=== PATIENT | male | born 1960 | race Caucasian/White ===

== ENCOUNTER 2016-02-20 16:41 | Emergency (ER) | payer OTHER ==
[2016-02-20] MEDS ORDERED: Ketorolac INJ* 30 MG/ML 1 ML VIAL IV ONE (17:13)
[2016-02-20] MEDS ORDERED: NS 0.9% 1000 ML* 1,000 ML IV ONE (17:13)
[2016-02-20 17:51] LABS: Hematocrit 41 % (42-52); Hemoglobin 13.4 g/dl (14.0-18.0); Mean Corpuscular HGB Conc 33 g/dl (31-36); Mean Corpuscular Hemoglobin 34 pg (27-31); Mean Corpuscular Volume 104 fL (80-94); Mean Platelet Volume 9 um3 (7.4-10.4); Red Blood Count 3.94 10^6/ul (4.0-5.4); Red Cell Distribution Width 17 % (10.5-15); White Blood Count 10.5 10^3/ul (3.5-10.8)
[2016-02-20 18:01] LABS: Albumin 3.3 g/dL (3.2-5.2); Calcium 9.3 mg/dL (8.6-10.3); EGFR African American 26.8 (>60); EGFR Non-African American 20.9 (>60); Globulin 3.9 g/dL (2-4); Potassium 3.9 mmol/L (3.5-5.0); Total Bilirubin 0.9 mg/dL (0.2-1.0); Total Protein 7.2 g/dL (6.4-8.9)
[2016-02-20 18:04] LABS: Troponin I 0.01 ng/mL (<0.04)
[2016-02-20 18:14] LABS: C Reactive Protein 388.81 mg/L (< 5.00)
--- NOTE | 2016-02-20 18:26 | RAD ---
INDICATION: RIGHT knee and toes pain and swelling. Immobility due to long car trip one week ago. Post RIGHT pneumonectomy for lung carcinoma. COMPARISON: None. TECHNIQUE: Hopper scale, color Doppler, and spectral analysis of the deep veins of the RIGHT lower extremity. Vessel compression, phasicity, and augmentation assessed. REPORT: The RIGHT common femoral, great saphenous, profunda femoral, femoral, popliteal, peroneal, and posterior tibial veins are patent. 4.7 x 1.5 cm RIGHT popliteal cyst with reticulated low level internal echoes consistent with synovitis. Patency of the contralateral common femoral vein documented. IMPRESSION: No evidence for RIGHT lower extremity deep venous thrombosis.
--- NOTE | 2016-02-20 18:37 | RAD ---
Indication: RIGHT knee pain, swelling and limitation in flexion for about one week. Weakness. Comparison: None. Technique: AP, tunnel, crosstable lateral, sunrise views RIGHT knee. Report: Moderate suprapatellar joint effusion. Negative for fracture or malalignment. Mild osteophytosis. Mild medial joint space narrowing. Unremarkable soft tissue contours. IMPRESSION: Mild osteoarthritis most prominent at the medial joint compartment. Moderate suprapatellar joint effusion. Negative for fracture.
[2016-02-20] MEDS ORDERED: NS 0.9% 1000 ML* 2,000 ML IV ONE (19:12)
[2016-02-20] MEDS ORDERED: HYDROcodone/ACETAMIN 5-325 MG* 1 TAB PO ONE (22:05)
[2016-02-20 23:04] VITALS: BP 132/74
--- NOTE | 2016-02-20 23:36 | ED ---
Chris Oliveira Adam, scribed for Toribio Cerda MD on 02/20/16 at 1702 . Complex/Multi-Sys Presentation - HPI Summary HPI Summary: Pt is a 55 year old male presenting with pain in his right knee. The pain is aggravated by movement and weight-bearing. It set on 7 days ago when the pt was driving to [place] and it has grown more severe every day. He returned from [place] 3 days ago. He also c/o swelling in his right ankle/foot. PMHx includes lung CA, pneumonectomy, and kidney deficiency. - History Of Current Complaint Chief Complaint: EDWeakness Time Seen by Provider: 02/20/16 16:57 Hx Obtained From: Patient Onset/Duration: Gradual Onset, Lasting Days, Still Present Timing: Constant Severity Currently: Moderate Severity Initially: Mild Location: Pain At: - RLE Aggravating Factor(s): Movement, weight bearing Alleviating Factor(s): Nothing Associated Signs And Symptoms: Positive: Weakness, Edema - Allergies/Home Medications Allergies/Adverse Reactions: Allergies Allergy/AdvReac Type Severity Reaction Status Date / Time Penicillins Allergy Unknown Unknown Verified 07/01/12 13:08 Reaction Details PMH/Surg Hx/FS Hx/Imm Hx Endocrine/Hematology History: Denies: Hx Anticoagulant Therapy, Hx Diabetes, Hx Thyroid Disease Cardiovascular History: Reports: Hx Hypertension, Other Cardiovascular Problems/ Disorders - recent elevated bps Denies: Hx Pacemaker/ICD Respiratory History: Reports: Hx Lung Cancer, Other Respiratory Problems/ Disorders - s/p right pneumonectomy (Jan 2008) Denies: Hx Asthma, Hx Chronic Obstructive Pulmonary Disease (COPD) GI History: Reports: Hx Gastroesophageal Reflux Disease, Other GI Disorders - GERD History: Reports: Hx Acute Renal Failure - current elevated due to dehydration, Other Problems/Disorders - hx of renal issues s/p chemo tx Denies: Hx Renal Disease Musculoskeletal History: Denies: Hx Osteoporosis Sensory History: Reports: Hx Contacts or Glasses - reading Opthamlomology History: Reports: Hx Contacts or Glasses - reading Neurological History: Denies: Hx Dementia, Hx Seizures Psychiatric History: Reports: Hx Substance Abuse - ETOH - Cancer History Cancer Type, Location and Year: lung cancer 5 years ago Hx Chemotherapy: Yes - Surgical History Surgery Procedure, Year, and Place: LUNG SURGERY Hx Anesthesia Reactions: No Infectious Disease History: No Infectious Disease History: Denies: Hx Hepatitis, Hx Human Immunodeficiency Virus (HIV), Traveled Outside the [place] in Last 30 Days - Social History Occupation: Employed Full-time Lives: With Family - Female friend Alcohol Use: Weekly Alcohol Amount: 2/week ("occassionally binge") Hx Substance Use: No Substance Use Type: Reports: None Hx Tobacco Use: No Smoking Status (MU): Never Smoked Tobacco Review of Systems Constitutional: Negative Negative: Fever Positive: Arthralgia - Right knee, Myalgia - RLE, Edema - Ankles Positive: Weakness All Other Systems Reviewed And Are Negative: Yes Physical Exam Triage Information Reviewed: Yes Vital Signs On Initial Exam: Initial Vitals Temp Pulse Resp BP Pulse Ox 98.4 F 122 18 125/71 96 02/20/16 16:53 02/20/16 16:53 02/20/16 16:53 02/20/16 16:53 02/20/16 16:53 Vital Signs Reviewed: Yes Appearance: Positive: Well-Appearing, No Pain Distress Skin: Positive: Warm, Skin Color Reflects Adequate Perfusion, Dry Head/Face: Positive: Normal Head/Face Inspection Eyes: Positive: Normal ENT: Positive: Normal ENT inspection Neck: Positive: Supple, Nontender Respiratory/Lung Sounds: Positive: Clear to Auscultation, Breath Sounds Present Cardiovascular: Positive: RRR Abdomen Description: Positive: Nontender, Soft Bowel Sounds: Positive: Present Musculoskeletal: Positive: Other - Tenderness with ROM of right knee. Patella did not blot and is not warm to the touch. Slight ankle edema. Neurological: Positive: Normal Psychiatric: Positive: Normal, Affect/Mood Appropriate Diagnostics - Vital Signs Vital Signs Temp Pulse Resp BP Pulse Ox 02/20/16 16:53 98.4 F 122 18 125/71 96 - Laboratory Lab Results: Lab Results 02/20/16 02/20/16 02/20/16 Range/Units 17:31 17:31 17:31 WBC 10.5 (3.5-10.8) 10^3/ul RBC 3.94 L (4.0-5.4) 10^6/ul Hgb 13.4 L (14.0-18.0) g/dl Hct 41 L (42-52) % MCV 104 H (80-94) fL MCH 34 H (27-31) pg MCHC 33 (31-36) g/dl RDW 17 H (10.5-15) % Plt Count 337 (150-450) 10^3/ul MPV 9 (7.4-10.4) um3 Neut % (Auto) 80.5 (38-83) % Lymph % (Auto) 9.7 L (25-47) % [place] % (Auto) 8.9 (1-9) % Eos % (Auto) 0.2 (0-6) % Baso % (Auto) 0.7 (0-2) % Absolute Neuts (auto) 8.4 H (1.5-7.7) 10^3/ul Absolute Lymphs (auto) 1.0 (1.0-4.8) 10^3/ul Absolute Monos (auto) 0.9 H (0-0.8) 10^3/ul Absolute Eos (auto) 0 (0-0.6) 10^3/ul Absolute Basos (auto) 0.1 (0-0.2) 10^3/ul Absolute Nucleated RBC 0 10^3/ul Nucleated RBC % 0 INR (Anticoag Therapy) 0.98 (0.89-1.11) Sodium 128 L (133-145) mmol/L Potassium 3.9 (3.5-5.0) mmol/L Chloride 93 L (101-111) mmol/L Carbon Dioxide 22 (22-32) mmol/L Anion Gap 13 H (2-11) mmol/L BUN 62 H (6-24) mg/dL Creatinine 3.10 H (0.67-1.17) mg/dL Est GFR ( Amer) 26.8 (>60) Est GFR (Non-Af Amer) 20.9 (>60) BUN/Creatinine Ratio 20.0 (8-20) Glucose 103 H (70-100) mg/dL Lactic Acid (0.5-2.0) mmol/L Calcium 9.3 (8.6-10.3) mg/dL Total Bilirubin 0.90 (0.2-1.0) mg/dL AST 42 H (13-39) U/L ALT 31 (7-52) U/L Alkaline Phosphatase 130 H (34-104) U/L Troponin I 0.01 (<0.04) ng/mL C-Reactive Protein 388.81 H (< 5.00) mg/L Total Protein 7.2 (6.4-8.9) g/dL Albumin 3.3 (3.2-5.2) g/dL Globulin 3.9 (2-4) g/dL Albumin/Globulin Ratio 0.8 L (1-3) 02/20/16 Range/Units 17:31 WBC (3.5-10.8) 10^3/ul RBC (4.0-5.4) 10^6/ul Hgb (14.0-18.0) g/dl Hct (42-52) % MCV (80-94) fL MCH (27-31) pg MCHC (31-36) g/dl RDW (10.5-15) % Plt Count (150-450) 10^3/ul MPV (7.4-10.4) um3 Neut % (Auto) (38-83) % Lymph % (Auto) (25-47) % [place] % (Auto) (1-9) % Eos % (Auto) (0-6) % Baso % (Auto) (0-2) % Absolute Neuts (auto) (1.5-7.7) 10^3/ul Absolute Lymphs (auto) (1.0-4.8) 10^3/ul Absolute Monos (auto) (0-0.8) 10^3/ul Absolute Eos (auto) (0-0.6) 10^3/ul Absolute Basos (auto) (0-0.2) 10^3/ul Absolute Nucleated RBC 10^3/ul Nucleated RBC % INR (Anticoag Therapy) (0.89-1.11) Sodium (133-145) mmol/L Potassium (3.5-5.0) mmol/L Chloride (101-111) mmol/L Carbon Dioxide (22-32) mmol/L Anion Gap (2-11) mmol/L BUN (6-24) mg/dL Creatinine (0.67-1.17) mg/dL Est GFR ( Amer) (>60) Est GFR (Non-Af Amer) (>60) BUN/Creatinine Ratio (8-20) Glucose (70-100) mg/dL Lactic Acid 1.5 (0.5-2.0) mmol/L Calcium (8.6-10.3) mg/dL Total Bilirubin (0.2-1.0) mg/dL AST (13-39) U/L ALT (7-52) U/L Alkaline Phosphatase (34-104) U/L Troponin I (<0.04) ng/mL C-Reactive Protein (< 5.00) mg/L Total Protein (6.4-8.9) g/dL Albumin (3.2-5.2) g/dL Globulin (2-4) g/dL Albumin/Globulin Ratio (1-3) Result Diagrams: 02/20/16 17:31 02/20/16 17:31 Lab Statement: Any lab studies that have been ordered have been reviewed, and results considered in the medical decision making process. - Radiology Right Knee Radiology Interpretation Completed By: Radiologist - IMPRESSION: Mild osteoarthritis most prominent at the medial joint compartment. Moderate suprapatellar joint effusion. Negative for fracture. - EKG 16:58 Cardiac Rate: Tachycardia - 116 BPM EKG Rhythm: Sinus Tachycardia EKG Interpretation: Nonspecific changes - Additional Comments Diagnostic Additional Comments: Troponin I - 0.01 Venous Doppler Study - IMPRESSION: No evidence for RIGHT lower extremity deep venous thrombosis. Complex Multi-Symp Course/Dx Course Of Treatment: There is no evidence for an intraarticular problem. His knee has been hurting more and more since he drove an 8 hour trip. I will treat him conservatively with immobilization and anti-inflammatories - Diagnoses Provider Diagnoses: Knee inflammation Discharge - Discharge Plan Condition: Stable Disposition: HOME Prescriptions: HYDROcodone/ACETAMIN 5-325 MG* [[place] 5-325 TAB*] 1 tab PO Q6H PRN #20 tab MDD 4 PRN Reason: Pain Patient Education Materials: Knee Pain (ED) Referrals: Harinder Duncan MD [Primary Care Provider] - Additional Instructions: Follow up with Dr. Duncan. The documentation as recorded by the Chris chahal Adam accurately reflects the service I personally performed and the decisions made by me, Toribio Cerda MD.
== END 2016-02-20 23:03 | disposition home or self-care (01) ==
LOC: ED 16:41
DX: M13.161 Monoarthritis, not elsewhere classified, right knee (principal); M25.561 Pain in right knee; R53.1 Weakness
CPT/HCPCS: 36415; 80053; 83605; 84484; 85025; 85610; 86140; 93005; 96361; 96374; 99282; J1885

== ENCOUNTER 2016-10-19 12:36 | Inpatient (IN) | payer OTHER ==
[2016-10-19 13:48] LABS: Hematocrit 42 % (42-52); Hemoglobin 14.1 g/dl (14.0-18.0); Mean Corpuscular HGB Conc 34 g/dl (31-36); Mean Corpuscular Hemoglobin 34 pg (27-31); Mean Corpuscular Volume 102 fL (80-94); Mean Platelet Volume 7 um3 (7.4-10.4); Red Blood Count 4.14 10^6/ul (4.0-5.4); Red Cell Distribution Width 20 % (10.5-15); White Blood Count 9.6 10^3/ul (3.5-10.8)
[2016-10-19] MEDS ORDERED: NS 0.9% 1000 ML* 1,000 ML IV ONE ×3 (13:48→17:51)
[2016-10-19 14:12] LABS: Albumin 4.1 g/dL (3.2-5.2); BUN/Creatinine Ratio 20.4 (8-20); C Reactive Protein 8.81 mg/L (< 5.00); Calcium 9.3 mg/dL (8.6-10.3); EGFR African American 63.5 (>60); EGFR Non-African American 49.4 (>60); Globulin 3.2 g/dL (2-4); Potassium 4.3 mmol/L (3.5-5.0); Total Bilirubin 1.1 mg/dL (0.2-1.0); Total Protein 7.3 g/dL (6.4-8.9)
[2016-10-19 14:24] LABS: Urine Bacteria Absent (Absent); Urine Bilirubin Negative (Negative); Urine Glucose Negative (Negative); Urine Nitrite Negative (Negative)
[2016-10-19] MEDS ORDERED: Iodixanol* (CONTRAST) 320 MG/ML 100 ML SDV IV ONE (15:21)
--- NOTE | 2016-10-19 15:35 | RAD ---
HISTORY: Right upper quadrant pain and vomiting COMPARISONS: None TECHNIQUE: Multiple transverse and longitudinal ultrasound images were obtained of the right upper quadrant of the abdomen using grayscale and color Doppler imaging. FINDINGS: The study is limited by patient bowel gas. LIVER: The liver is diffusely echogenic and coarse in echotexture, with decreased acoustic transmission. The liver is otherwise normal in shape, size, and contour. There is normal hepatopedal flow of the portal vein on Doppler imaging. BILIARY TREE: There is no intrahepatic or extrahepatic biliary dilatation. The common duct measures 0.4 cm. GALLBLADDER: The gallbladder is distended. An echogenic shadowing gallstone is noted.. There is no gallbladder wall thickening, pericholecystic fluid, or sonographic Thomas sign. PANCREAS: The pancreas is obscured by overlying bowel gas. RIGHT KIDNEY: Renal cysts are noted measuring up to 1.6 cm. 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 There is no hydronephrosis or nephrolithiasis. The right kidney measures 10.9 x 4.3 x 4.1 cm. AORTA AND IVC: The origin of the aorta is limited due to bowel gas. IVC is unremarkable. FLUID: There are no pleural effusions. There is no free fluid within the hepatorenal recess. OTHER FINDINGS: None. IMPRESSION: 1. FATTY LIVER. 2. CHOLELITHIASIS. 3. DUPLICATED RIGHT RENAL COLLECTING SYSTEM.
--- NOTE | 2016-10-19 16:26 | RAD ---
Indication: Vomiting and constipation, evaluate for small bowel obstruction CT of the abdomen and pelvis was performed without IV contrast administration. Oral contrast was administered. Coronal and sagittal reconstructed images were obtained. No prior studies are available for comparison. The patient is status post right pneumonectomy with mediastinal shift of the mediastinal structures to the right. Left lung field appears hyperinflated. No nodules or pleural fluid is identified. Liver is normal in size. It is diffusely decreased in density consistent with hepatic steatosis. The gallbladder demonstrates calcified gallstone in the dependent portion with no evidence of pericholecystic fluid. Common duct is not dilated. The pancreas demonstrates no mass or pancreatic duct dilatation. The spleen is normal in size. No adrenal lesions are noted. The kidneys demonstrate no hydronephrosis. The retroperitoneal lymphadenopathy is noted. The stomach is moderately distended. There is circumferential wall thickening at the antrum of the stomach. A mass in the antrum of the stomach is not excluded. Correlation with EGD is suggested. The small bowel demonstrates no abnormal dilatation. The colon is filled with stool. Patient status post appendectomy. Aorta and inferior vena cava are unremarkable. The bony structures demonstrate mild degenerative disc disease at multiple lumbar levels without sclerotic or lytic lesions. IMPRESSION: STATUS POST RIGHT PNEUMONECTOMY. HEPATIC STEATOSIS. THERE IS A CIRCUMFERENTIAL WALL THICKENING OF THE GASTRIC ANTRUM. A PARTIAL GASTRIC OUTLET OBSTRUCTION CANNOT BE EXCLUDED. THIS MAY BE DUE TO NEOPLASTIC OR INFLAMMATORY PROCESS. CORRELATION WITH DIRECT VISUALIZATION MAY BE HELPFUL. CHOLELITHIASIS WITHOUT BILIARY DUCTAL DILATATION.
[2016-10-19 17:03] LABS: Venous Bicarbonate HCO3 21.9 mmol/L (24-28)
[2016-10-19] MEDS ORDERED: Ondansetron INJ* 2 MG/ML VIAL IV PRN (17:41)
[2016-10-19] MEDS ORDERED: Enoxaparin(*) 40 MG/0.4 ML SYR SUBCUT SCH (18:00)
[2016-10-19] MEDS ORDERED: Senna TAB PO PRN (18:43)
[2016-10-19] MEDS ORDERED: Docusate CAP* 100 MG PO PRN (18:43)
--- NOTE | 2016-10-19 19:00 | HP ---
H&P (Free Text) History and Physical: Reason for consultation: Coffee-ground emesis HPI: 55 year old male with history of previous pneumonectomy presents to ED with persistent nausea and now coffee-ground emesis. Patient explains that over the past 4-5 days he has been significantly constipated. States he has had nausea and persisten emesis that initially was with food and then progressed to bile and dark material. Denies melena or hematochezia. States he has been constipated which is new as he typically has loose stools. Admits to recent alcohol intake and binge drinking. No fevers or chills. Denies any abdominal distension. He came to ER with persistent symptoms and underwent a CT that showed possible gastric antral thickening with associated possible small bowel obstruction. He also underwent a U/S of RUQ that showed cholelithiasis but no clear evidence of cholecystitis. GI consulted for evaluation. Patient reports having similar symptoms in the past where he underwent an EGD by Dr. Morrow and was told he had reflux. He has a family history of colorectal cancer and had last colonoscopy [facility] 3-4 years ago without polyps. ROS: 10 point review of systems performed is negative unless specified in HPI. Past Medical and Surgical history Hypertension Alcoholism Lung Cancer s/p Pneumonectomy in 2007 Active Medications Generic Name Dose Route Start Last Admin Trade Name Freq PRN Reason Stop Dose Admin Acetaminophen 650 mg 10/19/16 17:41 Tylenol Tab* PO Q6H PRN PAIN Docusate Sodium 200 mg 10/19/16 18:43 Colace Cap* PO DAILY PRN CONSTIPATION Sodium Chloride 1,000 mls @ 175 mls/hr 10/19/16 17:45 Ns 0.9% 1000 Ml* IV PER RATE SHABANA Pantoprazole Sodium 80 mg/ 250 mls @ 25 mls/hr 10/19/16 18:30 Sodium Chloride IVPB Q10H SHABANA Ondansetron HCl 4 mg 10/19/16 17:41 Zofran Inj* IV Q4H PRN NAUSEA Senna 1 tab 10/19/16 18:43 Senokot Tab* PO DAILY PRN CONSTIPATION Temp Pulse Resp BP Pulse Ox 97.9 F 129 18 161/104 97 10/19/16 12:52 10/19/16 17:00 10/19/16 17:34 10/19/16 17:34 10/19/16 17:00 GEN: Appears well in no acute distress, talkative HEENT: anicteric sclera, dry mucous membranes CHEST: Clear to auscultation bilaterally CV: tachycardic s1 s2 no rubs or gallops ABD: soft, mild tenderness in right upper quadrant, hypoactive bowel sounds, + hepatomegaly MSK: nontender SKIN: no jaundice or rashes NEURO: alert and oriented x3 Labs: Laboratory Last Values WBC 9.6 10^3/ul (3.5-10.8) 10/19/16 13:35 RBC 4.14 10^6/ul (4.0-5.4) 10/19/16 13:35 Hgb 14.1 g/dl (14.0-18.0) 10/19/16 13:35 Hct 42 % (42-52) 10/19/16 13:35 MCV 102 fL (80-94) H 10/19/16 13:35 MCH 34 pg (27-31) H 10/19/16 13:35 MCHC 34 g/dl (31-36) 10/19/16 13:35 RDW 20 % (10.5-15) H 10/19/16 13:35 Plt Count 279 10^3/ul (150-450) 10/19/16 13:35 MPV 7 um3 (7.4-10.4) L 10/19/16 13:35 Neut % (Auto) 79.3 % (38-83) 10/19/16 13:35 Lymph % (Auto) 14.7 % (25-47) L 10/19/16 13:35 [place] % (Auto) 4.7 % (1-9) 10/19/16 13:35 Eos % (Auto) 0.2 % (0-6) 10/19/16 13:35 Baso % (Auto) 1.1 % (0-2) 10/19/16 13:35 Absolute Neuts (auto) 7.6 10^3/ul (1.5-7.7) 10/19/16 13:35 Absolute Lymphs (auto) 1.4 10^3/ul (1.0-4.8) 10/19/16 13:35 Absolute Monos (auto) 0.5 10^3/ul (0-0.8) 10/19/16 13:35 Absolute Eos (auto) 0 10^3/ul (0-0.6) 10/19/16 13:35 Absolute Basos (auto) 0.1 10^3/ul (0-0.2) 10/19/16 13:35 Absolute Nucleated RBC 0.02 10^3/ul 10/19/16 13:35 Nucleated RBC % 0.2 10/19/16 13:35 VBG pH 7.40 (7.33-7.43) 10/19/16 16:56 VBG pCO2 35 mmHg (41-51) L 10/19/16 16:56 VBG pO2 30 mmHg (35-45) L 10/19/16 16:56 VBG HCO3 21.9 mmol/L (24-28) L 10/19/16 16:56 VBG O2 Saturation 60.9 % (70-80) L 10/19/16 16:56 VBG Base Excess -2.5 (0-4) L 10/19/16 16:56 Sodium 136 mmol/L (133-145) 10/19/16 13:35 Potassium 4.3 mmol/L (3.5-5.0) 10/19/16 13:35 Chloride 95 mmol/L (101-111) L 10/19/16 13:35 Carbon Dioxide 22 mmol/L (22-32) 10/19/16 13:35 Anion Gap 19 mmol/L (2-11) H 10/19/16 13:35 BUN 30 mg/dL (6-24) H 10/19/16 13:35 Creatinine 1.47 mg/dL (0.67-1.17) H 10/19/16 13:35 Est GFR ( Amer) 63.5 (>60) 10/19/16 13:35 Est GFR (Non-Af Amer) 49.4 (>60) 10/19/16 13:35 BUN/Creatinine Ratio 20.4 (8-20) H 10/19/16 13:35 Glucose 84 mg/dL (70-100) 10/19/16 13:35 Lactic Acid 4.4 mmol/L (0.5-2.0) H* 10/19/16 13:35 Calcium 9.3 mg/dL (8.6-10.3) 10/19/16 13:35 Total Bilirubin 1.10 mg/dL (0.2-1.0) H 10/19/16 13:35 AST 36 U/L (13-39) 10/19/16 13:35 ALT 21 U/L (7-52) 10/19/16 13:35 Alkaline Phosphatase 85 U/L (34-104) 10/19/16 13:35 C-Reactive Protein 8.81 mg/L (< 5.00) H 10/19/16 13:35 Total Protein 7.3 g/dL (6.4-8.9) 10/19/16 13:35 Albumin 4.1 g/dL (3.2-5.2) 10/19/16 13:35 Globulin 3.2 g/dL (2-4) 10/19/16 13:35 Albumin/Globulin Ratio 1.3 (1-3) 10/19/16 13:35 Lipase 77 U/L (11.0-82.0) 10/19/16 13:35 Urine Color Jessica 10/19/16 13:59 Urine Appearance Cloudy 10/19/16 13:59 Urine pH 5.0 (5-9) 10/19/16 13:59 Ur Specific [place] 1.027 (1.010-1.030) 10/19/16 13:59 Urine Protein 3+(>=500 mg/dl) (Negative) H 10/19/16 13:59 Urine Ketones 2+ (Negative) H 10/19/16 13:59 Urine Blood 1+ (Negative) H 10/19/16 13:59 Urine Nitrate Negative (Negative) 10/19/16 13:59 Urine Bilirubin Negative (Negative) 10/19/16 13:59 Urine Urobilinogen Negative (Negative) 10/19/16 13:59 Ur Leukocyte Esterase Trace (Negative) H 10/19/16 13:59 Urine WBC (Auto) Trace(0-5/hpf) (Absent) 10/19/16 13:59 Urine RBC (Auto) 2+(6-10/hpf) (Absent) H 10/19/16 13:59 Ur Squamous Epith Cells Present (Absent) H 10/19/16 13:59 Urine Bacteria Absent (Absent) 10/19/16 13:59 Hyaline Casts Present (Absent) H 10/19/16 13:59 Urine Glucose Negative (Negative) 10/19/16 13:59 Serum Alcohol 127 mg/dL (<10) H 10/19/16 13:35 Blood Type A Positive 10/19/16 13:35 Antibody Screen Negative 10/19/16 13:35 Radiology: CT abd/pelvis; independently reviewed and noted to have possible small bowel obstruction unable to see a clear mass per my read. Impression: 55 year old male with above comorbidities admitted with abdominal pain, nausea, and coffee-ground emesis. CT imaging suggests possible partial small bowel obstruction and labs with alcoholic ketoacidosis. 1. Coffee-ground Emesis: Reported dark emesis but unclear if patient has overt GI bleeding at this time. Nonetheless, given his alcohol intake and history of GERD and abnormal CT, EGD is indicated. For now, would recommend acid suppression with IV ppi BID and clears till midnight. Continue antiemetics overnight. Keep NPO p MN for EGD tomorrow am. Please maintain 2 large bore IVs. Check H/H q12 for now. Send PT/INR in am if not already sent. 2. CT showing gastric thickening: Possible patient could have alcohol induced gastritis vs other etiology. As above, EGD is indicated to evaluate CT findings. 3. Possble partial small bowel obstruction: Clinically, he does not appear to have evidence of a partial small bowel obstruction at this time. Consider follow up abdominal film if EGD is non-diagnostic. 4. Hepatic Steatosis on CT: Likely secondary to alcohol discussed alcohol abstinence.
[2016-10-19] MEDS: Pantoprazole IV* 80 MG in NS 0.9% 250 ML* 250 ML IVPB SCH (20:44)
[2016-10-19] MEDS: LORazepam TAB(*) 1 MG PO SCH ×2 (20:46→22:30)
[2016-10-19] MEDS ORDERED: LORazepam INJ* 2 MG/ML 1 ML VIAL IV PUSH SCH (21:00)
[2016-10-19] MEDS: NS 0.9% 1000 ML* 1,000 ML IV SCH (22:32)
[2016-10-19 23:30] LABS: Hematocrit 36 % (42-52); Hemoglobin 11.8 g/dl (14.0-18.0)
--- NOTE | 2016-10-20 01:35 | HP ---
HISTORY AND PHYSICAL: ADDENDUM: The case was reviewed and discussed with MONI Guerra. Mr. Rojas is a 55-year-old male with a past medical history of hypertension, alcoholism, pancreatitis, CKD stage 3, GERD, lung CA, status post right pneumonectomy who presents to the hospital with complaints of nausea and recurrent vomiting. He reports up to 10 episodes of vomiting a day and very poor oral intake, but he continues to drink 7 shots of vodka a day. His workup in the emergency room was reviewed. I believe his hemoglobin is 14 due to hemoconcentration considering his recurrent vomiting. Clinically, he appears to be dehydrated and he also has lactic acid elevation with an anion gap of 19. Alcohol level was 127. His CT showed findings suggestive of gastric outlet obstruction. I believe the patient may have an upper GI bleed that could be secondary to peptic ulcer disease causing his gastric outlet obstruction and recurrent vomiting. Key-Phelps tear is on the differential. He will be admitted. We are going to give him IV hydration, Protonix drip and symptomatic treatment. We are going to monitor his H and H and lactic acid. With his history of alcohol abuse, he will also be started on a WAM protocol and he will be monitored closely. I am in agreement with his management. [id number]/[facility] #: [id number] [facility]ERSheron
--- NOTE | 2016-10-20 02:34 | HP ---
AMENDED REPORT NOW INCLUDES COSIGNER DESIGNATION AND [id number] DATE OF ADMISSION ATTENDING ADDENDUM NOW INCLUDED ON THIS REPORT ESIGNED BEFORE ADJUSTMENTS CC: Dr. Harinder Duncan * HISTORY AND PHYSICAL: DATE OF ADMISSION: 10/19/16 PRIMARY CARE PHYSICIAN: Dr. Harinder Duncan MY ATTENDING WHILE IN THE HOSPITAL: Dr. Dex Santana * (DICTATED BY MONI PARK) CHIEF COMPLAINT: Throwing up brown emesis for several days. HISTORY OF PRESENT ILLNESS: Mr. Rojas is a 55-year-old male with a past medical history significant for hypertension; stage 3 chronic kidney disease; lung cancer, with pneumonectomy and alcohol abuse, who presents with 3 days of vomiting 10 times a day, sometimes with brown emesis that he describes as stringy and tobacco like. The patient denies any logan blood in his vomit. The patient has also been constipated for 5 days and today manually disimpacted himself and had some bright red blood per rectum. The patient states that he usually has rather loose stools, sometimes they are black and tarry. The patient denies any abdominal pain, but states that he is uncomfortable in his abdomen because of nausea. The patient was here in 2016 with similar episode of vomiting with brown emesis and states this is similar. The patient denies history of peptic ulcer disease, foreign travel, exposure to close contacts with known H. pylori, hepatitis, cirrhosis, or colon cancer. The patient's most recent colonoscopy was in 2014 showing several polyps. The patient states he had an endoscopy, but there is no record of it in the system. The patient drinks 6 to 7 shots of vodka a day and has been doing so intermittently throughout his life. The patient states he did not drink anything for a month before a week ago and he has been having about 6 to 7 shots since and that is his pattern. The patient denies ever having physically withdrawn from alcohol before. The patient denies any recent illnesses. The patient states he has not had anything to drink for several days due to nausea. PAST MEDICAL HISTORY: Lung cancer; hypertension; chronic kidney disease, stage 3, from chemotherapy; alcohol abuse; GERD. PAST SURGICAL HISTORY: Right pneumonectomy, appendectomy, tonsillectomy. MEDICATIONS: The patient discontinued all his medications over a week ago. His former medications included: 1. Omeprazole. 2. Lisinopril. ALLERGIES: PENICILLIN. FAMILY HISTORY: The patient's father had coronary artery disease. The patient' s mother had diabetes mellitus. The patient's grandfather has diabetes mellitus. The patient's sister has breast cancer. The patient's mother had head and neck cancer and the patient's father had colon cancer. SOCIAL HISTORY: The patient states that he quit smoking tobacco 10 years ago after his diagnosis of lung cancer, after [id number] history of smoking. The patient's alcohol abuse is described in the HPI. The patient used to work as musician and nocturnist, but is now retired. The patient is never , does not have any kids. REVIEW OF SYSTEMS: The patient denies fevers, chills, chest pain, edema, cough , shortness of breath, hematuria, dysuria. The patient states his urine has gotten darker over the past week. The patient states he had significant peripheral neuropathy from chemotherapy after he had lung cancer. The patient denies any weakness. The patient denies any change in vision. The patient denies any difficulty swallowing. The patient denies any new rashes or altered mental status. PHYSICAL EXAMINATION GENERAL: The patient is a 55-year-old male, who appears his stated age and is sitting comfortably on the exam table. VITAL SIGNS: Blood pressure is 137/105, heart rate 122, temperature 97.9, respiratory rate 15, oxygen saturation 98% on room air. HEENT: Head: Normocephalic and atraumatic. Conjunctivae anicteric. Pupils are equal, round, and reactive to light. Pharynx is nonerythematous, no erosions, mucosa dry and pale. NECK: Supple, no lymphadenopathy. RESPIRATORY: The patient has no adventitious breath sounds on the left side. The right side is lacking breath sounds entirely except for slight bronchial breath sounds around the middle lobe. CARDIAC: Tachycardic, no clicks, murmurs, gallops, or rubs. Pulses 2+ in the radial, dorsalis pedis, and posterior tibial pulses bilaterally. No edema. ABDOMEN: Soft, nontender, nondistended. Bowel sounds are hyperactive in all 4 quadrants. No abdominal bruits auscultated. No hepatosplenomegaly. Rectal exam revealed no stool in the rectal vault. No hemorrhoids, fissures, normal sphincter tone, and there were specks of blood on the examiner's glove, but not enough for a stool occult blood sample. : No suprapubic tenderness. No CVA tenderness. NEURO: Cranial nerves II through XII are intact. Alert and oriented x3. SKIN: [place], warm, intact. DIAGNOSTIC STUDIES/LAB DATA: White blood cell count 9.6, hemoglobin 14.1, hematocrit 42, MCV 102, MCH 34, RDW 20, platelets 279. Sodium 136, potassium 4.3, chloride 95, carbon dioxide 22, anion gap 19, BUN 30, creatinine 1.47, glucose 84, lactic acid 4.4. Bilirubin 1.1. CRP 8.81. AST 36, ALT 21. Urine : Color alfredo, appearance cloudy, 3+ protein, 2+ ketones, 1+ blood, trace leukocyte esterase, 2+ red blood cells, epithelial cells present, hyaline casts present, no bacteria, serum alcohol 127. Venous blood gas pH 7.4, venous blood gas PCO2 , venous blood gas O2 30, venous blood gas HCO3 21.9, venous O2 saturation 60.9, venous blood gas base excess negative 2.5. The patient's CT of the abdomen and pelvis shows pneumonectomy, hepatic steatosis, and a circumferential wall thickening epigastric antrum, partial gastric outlet obstruction cannot be excluded, this may be due to neoplastic or inflammatory process, correlation with direct visualization may be helpful and cholelithiasis without biliary duct dilatation. The patient also had ultrasound of right upper quadrant showing fatty liver, cholelithiasis, and a duplicated right renal collecting system. ASSESSMENT AND PLAN: Impression: The patient is a 55-year-old male with past medical history significant for lung cancer, with pneumonectomy; hypertension; chronic kidney disease; ongoing alcohol abuse, who presents with findings consistent with an upper gastrointestinal bleed and will be admitted to telemetry for observation and supportive care. 1. Gastric upper gastrointestinal bleed. The patient's description of emesis is consistent with coffee-ground appearance, indicating partially digested gastric blood. The patient has a past medical history significant for this and recent discontinuing his PPI and continued alcohol abuse are both predisposing factors for gastrointestinal bleed. We will admit to telemetry, start on a Protonix drip, give fluids for blood pressure support, though he is currently normotensive and consult GI for possible endoscopy. I will repeat H and H q.8 hours and we will repeat lactic acid at 2200 tonight. We will order stool occult blood for the patient's next bowel movement. 2. Chronic kidney disease, stage 3. We will repeat BMP in the morning, BUN and creatinine ratio greater than 20 indicating possible dehydration, fluids will help with this. 3. Alcohol abuse. We will place on the [facility] protocol and reassess if the patient begins to show signs of physical withdrawal. 4. Hypertension. The patient recently discontinued his own lisinopril. The patient is currently normotensive in the hospital. We will reinitiate antihypertensive therapy if indicated. 5. Gastroesophageal reflux disease. The patient is on a Protonix drip. 6. FEN. The patient is NPO pending GI consult. The patient has fluids going, normal saline at 175 mL an hour. 7. Code status. The patient would like to be a full code. The patient's surrogate decision maker is Karime Zandrakelly, his whale trainer. 8. DVT prophylaxis. The patient will have SCDs on while in bed and will be encouraged to ambulate if able. No pharmacologic prophylaxis given at this time due to possible gastrointestinal bleed. The patient is admitted to telemetry. 9. Disposition: The patient is admitted to telemetry. TIME SPENT: Approximately an hour spent on this admission, half of which was spent on [id number] contact with the patient obtaining history and physical. This case has been discussed with my attending provider, Dr. Dex Santana, and she is in agreement with this plan. MONI PARK ADDENDUM: The case was reviewed and discussed with MONI Park. Mr. Rojas is a 55-year-old male with a past medical history of hypertension, alcoholism, pancreatitis, CKD stage 3, GERD, lung CA, status post right pneumonectomy who presents to the hospital with complaints of nausea and recurrent vomiting. He reports up to 10 episodes of vomiting a day and very poor oral intake, but he continues to drink 7 shots of vodka a day. His workup in the emergency room was reviewed. I believe his hemoglobin is 14 due to hemoconcentration considering his recurrent vomiting. Clinically, he appears to be dehydrated and he also has lactic acid elevation with an anion gap of 19. Alcohol level was 127. His CT showed findings suggestive of gastric outlet obstruction. I believe the patient may have an upper GI bleed that could be secondary to peptic ulcer disease causing his gastric outlet obstruction and recurrent vomiting. Key-Phelps tear is on the differential. He will be admitted. We are going to give him IV hydration, Protonix drip and symptomatic treatment. We are going to monitor his H and H and lactic acid. With his history of alcohol abuse, he will also be started on a WAM protocol and he will be monitored closely. I am in agreement with his management. DEX Santana MD [id number]/[facility]PS #: [id number]/CPS #: [id number] ROGE
[2016-10-20] MEDS: NS 0.9% 1000 ML* 1,000 ML IV SCH ×2 (04:54→18:00)
[2016-10-20 05:13] LABS: Hematocrit 33 % (42-52)
[2016-10-20 05:30] LABS: BUN/Creatinine Ratio 21.7 (8-20); Calcium 7.3 mg/dL (8.6-10.3); EGFR Non-African American 65.3 (>60); Potassium 3.9 mmol/L (3.5-5.0)
[2016-10-20] MEDS ORDERED: Morphine INJ* 2 MG/ML 1 ML SYRINGE IV ONE (07:49)
[2016-10-20] MEDS ORDERED: Folic Acid TAB* 1 MG PO SCH (09:00)
[2016-10-20] MEDS ORDERED: Midazolam* 1 MG/ML 10 ML VIAL (10 MG) ONE (09:01)
[2016-10-20] MEDS ORDERED: fentaNYL* 50 MCG/ML 2 ML VIAL (100 MCG VIAL) ONE (09:01)
[2016-10-20] MEDS ORDERED: Magnesium CITRATE* 300 ML BTL PO ONE (10:09)
[2016-10-20] MEDS: Multivitamins/Minerals TAB PO SCH (11:07)
[2016-10-20] MEDS: Folic Acid TAB* 1 MG PO SCH (11:07)
[2016-10-20] MEDS: Thiamine TAB* 100 MG TAB PO SCH (11:08)
[2016-10-20] MEDS: Pantoprazole IV* 80 MG in NS 0.9% 250 ML* 250 ML IVPB SCH (11:13)
--- NOTE | 2016-10-20 12:48 | PN ---
Subjective Date of Service: 10/20/16 Interval History: Patient seen this afternoon after EGD. Reports some improvement in his symptoms. No emesis since hospitalization, some dry heaves yesterday. Currently tolerating clears. No BM yet. Reports hospitalization for EtOH withdrawal in 2011. Family History: Unchanged from Admission Social History: Unchanged from Admission Past Medical History: Unchanged from Admission Objective Active Medications: Acetaminophen (Tylenol Tab*) 650 mg PO Q6H PRN Docusate Sodium (Colace Cap*) 200 mg PO DAILY PRN Folic Acid (Folvite Tab*) 1 mg PO DAILY [facility] Sodium Chloride (Ns 0.9% 1000 Ml*) 1,000 mls @ 175 mls/hr IV PER RATE [facility] Lorazepam (Ativan Tab(*)) 0 - 6 mg PO .PER [place] PROTOCOL SH[facility]NA Lorazepam (Ativan Inj*) 0 - 3 mg IV PUSH .PER [facility] PROTOCOL SHABANA Multivitamins/Minerals (Theragran/Minerals Tab*) 1 tab PO DAILY [facility] Omeprazole (Prilosec Cap*) 20 mg PO BID [facility] Ondansetron HCl (Zofran Inj*) 4 mg IV Q4H PRN Senna (Senokot Tab*) 1 tab PO DAILY PRN Sucralfate (Sucralfate Susp) 1 gm PO QID [facility] Thiamine HCl (Vitamin B-1 Tab*) 100 mg PO DAILY [facility] Vital Signs 10/19/16 10/19/16 10/19/16 17:00 17:34 18:40 Temperature 98.2 F Pulse Rate 129 124 Respiratory 19 18 20 Rate Blood Pressure 137/105 161/104 171/103 (mmHg) O2 Sat by Pulse 97 99 Oximetry 10/20/16 10/20/16 10/20/16 00:23 00:30 02:08 Temperature 98.6 F 98.5 F Pulse Rate 107 103 Respiratory 20 20 22 Rate Blood Pressure 150/92 153/102 (mmHg) O2 Sat by Pulse 100 100 Oximetry 10/20/16 10/20/16 12:16 12:18 Temperature 97.2 F Pulse Rate 108 Respiratory 20 Rate Blood Pressure 159/91 (mmHg) O2 Sat by Pulse 100 Oximetry Oxygen Devices in Use Now: None Appearance: Middle-aged, M, laying in bed in NAD Eyes: No Scleral Icterus Ears/Nose/Mouth/Throat: Mucous Membranes Moist Neck: NL Appearance and Movements; NL JVP Respiratory: Symmetrical Chest Expansion and Respiratory Effort, Clear to Auscultation Cardiovascular: NL Sounds; No Murmurs; No JVD, - - Tachycardia Abdominal: - - Soft, non-tender, mild distension, BS hyperactive Lymphatic: No Cervical Adenopathy Extremities: No Edema Skin: No Rash or Ulcers Neurological: Alert and Oriented x 3, - - no tremor Result Diagrams: 10/20/16 04:54 10/20/16 04:54 Assess/Plan/Problems-Billing Assessment: Severe esophagitits, lactic acidosis, intractable N/V in a 56 yo M with hx of HTN, GERD, EtOH abuse, lung cancer s/p pneumonectomy, CKD3 - Patient Problems (1) Esophagitis Current Visit: Yes Comment: severe, noted on EGD. Appreciate GI assistance. Continue PPI gtt and clears for now. No active bleeding noted, no ulcers, awaiting final report. ?Oozing from esophagitis, continue to monitor H/H. Guaiac pending. (2) Lactic acid acidosis Current Visit: Yes Comment: Resolved with IVF (3) Alcohol abuse Current Visit: Yes Comment: Not scoring on WAM. Continue to monitor, change to q4h. Continue thiamine, folate, MVM. (4) HTN (hypertension) Current Visit: Yes Comment: Resume Lisinopril that patient discontinued as an outpatient (5) GERD (gastroesophageal reflux disease) Current Visit: Yes Comment: Continue PPI (6) CKD (chronic kidney disease) stage 3, GFR 30-59 ml/min Current Visit: Yes Comment: Stable (7) DVT prophylaxis Current Visit: Yes Comment: SCDs Status and Disposition: Inpatient for continued PPI gtt and H/H monitoring
[2016-10-20] MEDS: Lisinopril TAB* 10 MG PO SCH (13:35)
[2016-10-20] MEDS: Sucralfate SUSP 1 GM/10 ml 10 ML UDC PO SCH ×3 (13:36→21:53)
[2016-10-20] MEDS: Acetaminophen TAB* 325 MG PO PRN (13:44)
--- NOTE | 2016-10-20 17:00 | PRO ---
CC: Ruddy Canchola MD PROCEDURE REPORT: DATE OF PROCEDURE: PROCEDURE PERFORMED: EGD with biopsies using a cold forceps. NARRATIVE: This is a 56-year-old male with history of lung cancer status post pneumonectomy, who pr esented to the ER, 10/19/16, with persistent coffee-ground emesis and a CT scan suggesting gastric o utlet obstruction. The patient was seen in consultation on 10/20/16. MEDICATIONS GIVEN: Versed 7 mg, fentanyl 75 mcg. PROCEDURE IN DETAIL: After the risks and benefits of the procedure were discussed in detail, the morena jamil verbalized understanding and agreed to the procedure. Patient signed consent form. Informed c onsent was obtained. Time-out was then performed. The patient was placed in left lateral decubitus position and endoscopy was then performed. I advanced adult gastroscope periorally to the second p ortion of the duodenum with ease. The entire visualized duodenum was completely normal. There was n o evidence of erosive disease or evidence of any mass or obstruction. Next, I visualized the antrum and body. The antrum and body was remarkable for mild diffuse erythema with mild congestive changes . Next, I took multiple biopsies in the antrum using a cold forceps for histology. There was adequ ate hemostasis post biopsy. On retroflexion, there was evidence of hiatal hernia which was approxim ately 1 cm in size. Otherwise, there was no evidence of any erosive disease in the cardia or fundus . The gastric body was completely normal. Overall there was no evidence of any food residue or sug gestion of any gastric mass. In the distal esophagus, the 1.5 cm hiatal hernia was noted. The GE j unction was noted at 37 cm from the incisors. There was diffuse severe esophagitis noted, otherwise there was no active bleeding. The middle esophagus and proximal esophagus were completely normal w ithout any evidence of erosive disease. The oropharynx appeared completely normal. The gastroscope was removed from the patient. The patient tolerated the procedure well. There were no immediate c omplications. The patient was transferred to the recovery area in stable condition. IMPRESSION: 1. Severe esophagitis. 2. Hiatal hernia. 3. Probable gastropathy likely secondary to alcohol. 4. Normal duodenum. 5. No evidence of gastric outlet obstruction. RECOMMENDATIONS: 1. Twice daily PPI for the next 8 weeks. 2. Start clear liquid diet and advance as tolerated. 3. Repeat EGD in 2 to 3 months, document healing of esophagitis and take biopsies to rule out [place] tt esophagus. [id number]/[facility] #: [id number]
[2016-10-20 20:58] LABS: Hematocrit 35 % (42-52); Hemoglobin 11.4 g/dl (14.0-18.0)
[2016-10-20 21:00] LABS: Comments Flag Yes
[2016-10-20] MEDS ORDERED: Sucralfate TAB* 1 GM ONE (21:49)
[2016-10-20] MEDS: Omeprazole CAP* 20 MG PO SCH (21:53)
[2016-10-20] MEDS ORDERED: Colchicine* 0.6 MG TAB PO ONE (21:53)
[2016-10-20] MEDS: Morphine INJ* 2 MG/ML 1 ML SYRINGE IV PRN (23:31)
[2016-10-21] MEDS: Morphine INJ* 2 MG/ML 1 ML SYRINGE IV PRN ×3 (01:32→10:40)
[2016-10-21] MEDS: NS 0.9% 1000 ML* 1,000 ML IV SCH (08:16)
[2016-10-21] MEDS: Sucralfate SUSP 1 GM/10 ml 10 ML UDC PO SCH ×4 (08:17→20:24)
[2016-10-21] MEDS: Folic Acid TAB* 1 MG PO SCH (08:18)
[2016-10-21] MEDS: Colchicine* 0.6 MG TAB PO SCH (08:18)
[2016-10-21] MEDS: Lisinopril TAB* 10 MG PO SCH (08:18)
[2016-10-21] MEDS: Omeprazole CAP* 20 MG PO SCH ×2 (08:18→20:24)
[2016-10-21] MEDS: Multivitamins/Minerals TAB PO SCH (08:18)
[2016-10-21] MEDS: Thiamine TAB* 100 MG TAB PO SCH (08:18)
[2016-10-21 09:06] LABS: Hematocrit 34 % (42-52); Mean Corpuscular HGB Conc 33 g/dl (31-36); Mean Corpuscular Hemoglobin 34 pg (27-31); Mean Corpuscular Volume 102 fL (80-94); Mean Platelet Volume 8 um3 (7.4-10.4); Red Blood Count 3.28 10^6/ul (4.0-5.4); Red Cell Distribution Width 19 % (10.5-15); White Blood Count 15.4 10^3/ul (3.5-10.8)
[2016-10-21 09:20] LABS: BUN/Creatinine Ratio 13.4 (8-20); Calcium 7.2 mg/dL (8.6-10.3); EGFR African American 86.6 (>60); EGFR Non-African American 67.3 (>60); Potassium 3.5 mmol/L (3.5-5.0); Uric Acid 9.8 mg/dL (4.4-7.6)
--- NOTE | 2016-10-21 11:24 | PN ---
Subjective Date of Service: 10/21/16 Interval History: Patient reports pain in R knee, R elbow, R thumb and B/L shoulders today, had not mentioned to me yesterday. Reports thumb feeling better today. Reports he has had these symptoms in the past in these joints but usually not at the same time. Reports abdomen is feeling better. Some mild nausea but no emesis. Had large BM which he was relieved by. Family History: Unchanged from Admission Social History: Unchanged from Admission Past Medical History: Unchanged from Admission Objective Active Medications: Acetaminophen (Tylenol Tab*) 650 mg PO Q6H PRN Colchicine (Colcrys*) 0.6 mg PO DAILY [facility] Docusate Sodium (Colace Cap*) 200 mg PO DAILY PRN Folic Acid (Folvite Tab*) 1 mg PO DAILY [facility] Sodium Chloride (Ns 0.9% 1000 Ml*) 1,000 mls @ 75 mls/hr IV PER RATE [facility] Calcium Gluconate 2 gm/ Sodium (Chloride) 120 mls @ 60 mls/hr IV ONCE ONE Lisinopril (Prinivil Tab*) 10 mg PO DAILY [facility] Lorazepam (Ativan Tab(*)) 0 - 6 mg PO .PER WAM PROTOCOL [facility] Lorazepam (Ativan Inj*) 0 - 3 mg IV PUSH .PER WAM PROTOCOL [facility] Morphine Sulfate (Morphine Inj (Syringe)*) 2 mg IV Q2H PRN Multivitamins/Minerals (Theragran/Minerals Tab*) 1 tab PO DAILY [facility] Omeprazole (Prilosec Cap*) 20 mg PO BID [facility] Ondansetron HCl (Zofran Inj*) 4 mg IV Q4H PRN Senna (Senokot Tab*) 1 tab PO DAILY PRN Sucralfate (Sucralfate Susp) 1 gm PO QID [facility] Thiamine HCl (Vitamin B-1 Tab*) 100 mg PO DAILY ON LICENSE OF [facility] Vital Signs 10/20/16 10/20/16 10/20/16 12:16 12:18 16:00 Temperature 97.2 F 98.5 F Pulse Rate 108 104 Respiratory 20 12 Rate Blood Pressure 159/91 121/83 (mmHg) O2 Sat by Pulse 100 100 Oximetry 10/21/16 10/21/16 10/21/16 08:00 08:17 08:29 Temperature 99.4 F Pulse Rate 114 Respiratory 18 20 16 Rate Blood Pressure 160/92 (mmHg) O2 Sat by Pulse 97 Oximetry Oxygen Devices in Use Now: None Appearance: Middle-aged, M, laying in bed in mild pain Eyes: No Scleral Icterus Ears/Nose/Mouth/Throat: Mucous Membranes Moist Neck: NL Appearance and Movements; NL JVP Respiratory: Symmetrical Chest Expansion and Respiratory Effort, Clear to Auscultation Cardiovascular: NL Sounds; No Murmurs; No JVD, - - Tachycardia Abdominal: NL Sounds; No Tenderness; No Distention Lymphatic: No Cervical Adenopathy Extremities: - - R elbow erythemaous and swollen, some swelling in R thumb, pain with movement on shoulders no erythema, R knee with some edema, no erythema Skin: No Rash or Ulcers Neurological: Alert and Oriented x 3 Result Diagrams: 10/21/16 08:48 10/21/16 08:48 Microbiology and Other Data: Microbiology 10/20/16 17:00 Stool Occult Blood (STEPH) - Final Stool Assess/Plan/Problems-Billing Assessment: Severe esophagitits, lactic acidosis, intractable N/V in a 56 yo M with hx of HTN, GERD, EtOH abuse, lung cancer s/p pneumonectomy, CKD3 - Patient Problems (1) Esophagitis Current Visit: Yes Comment: severe, noted on EGD. Appreciate GI assistance. Continue PPI BID, carafate, advance diet. No active bleeding noted, no ulcers. Some gastropathy likely from EtOH. H/H stable. Guaiac negative. (2) Lactic acid acidosis Current Visit: Yes Comment: Resolved with IVF (3) Alcohol abuse Current Visit: Yes Comment: Not scoring on WAM. Continue to monitor. Continue thiamine, folate, MVM. (4) HTN (hypertension) Current Visit: Yes Comment: Resume Lisinopril that patient discontinued as an outpatient (5) Polyarticular joint involvement Current Visit: Yes Comment: Appreciate work-up/treatment started by Dr. Rodriguez. Uric acid levels elevated, may be polyarticular gout especially in context of recent binge drinking, continue Colchicine, reports some improvement in his R thumb. Would avoid NSAIDs and steroids at this point. ESR pending. Check TSH. Seems unlikely to be bacterial infection with multiple joint involvement. If not improving can look further into other systemic etiologies although seem less likely. (6) GERD (gastroesophageal reflux disease) Current Visit: Yes Comment: Continue PPI (7) CKD (chronic kidney disease) stage 3, GFR 30-59 ml/min Current Visit: Yes Comment: Stable (8) Tachycardia Current Visit: Yes Comment: Sinus tach. May be due to pain. Treat as above, continue to monitor on tele. (9) DVT prophylaxis Current Visit: Yes Comment: SCDs Status and Disposition: Inpatient
--- NOTE | 2016-10-21 11:40 | PN ---
Progress Note - Progress Note Date of Service: 10/21/16 Note: S: Denies any nausea or emesis overnight or today. Denies any abdominal pain. Had large BMs yesterday and none today. No fevers or chills. Tolerating clears today O: Vital Signs Temp Pulse Resp BP Pulse Ox 99.4 F 114 18 160/92 97 10/21/16 08:29 10/21/16 08:29 10/21/16 10:40 10/21/16 08:29 10/21/16 08:29 GEN: Appears well in no acute distress CHEST: Clear bilatereally CV: tachycardic but no rubs or gallops ABD: Soft, nontender throughout, normoactive bowel sounds Labs: Laboratory Results - last 24 hr 10/20/16 10/21/16 10/21/16 20:51 08:48 08:48 WBC 15.4 H RBC 3.28 L Hgb 11.4 L 11.0 L Hct 35 L 34 L MCV 102 H MCH 34 H MCHC 33 RDW 19 H Plt Count 172 MPV 8 Neut % (Auto) 90.3 H Lymph % (Auto) 5.6 L [place] % (Auto) 3.6 Eos % (Auto) 0.3 Baso % (Auto) 0.2 Absolute Neuts (auto) 14.0 H Absolute Lymphs (auto) 0.9 L Absolute Monos (auto) 0.5 Absolute Eos (auto) 0 Absolute Basos (auto) 0 Absolute Nucleated RBC 0 Nucleated RBC % 0 Sodium 133 Potassium 3.5 Chloride 101 Carbon Dioxide 23 Anion Gap 9 BUN 15 Creatinine 1.12 Est GFR ( Amer) 86.6 Est GFR (Non-Af Amer) 67.3 BUN/Creatinine Ratio 13.4 Glucose 109 H Uric Acid 9.8 H Calcium 7.2 L Impression: 56 year old male with alcohol abuse admitted with coffee ground emesis and CT imaging suggesting possible partial bowel obstruction. He has clinically improved. Final Recommendations: 1. Nausea/Coffee-ground Emesis: Likely secondary to alcohol induced gastritis and significant esophagitis found on EGD yesterday. Would treat with twice daily ppi for 8 weeks and continue Sucralfate suspension for 7 days total. 2. Esophagitis: Noted on EGD yesterday. As above, repeat EGD in 2-3 months to assess healing and biopsies for Bey's esophagus. 3. Hepatic Steatosis: Likely secondary alcohol. Encouraged alcohol abstinence. 4. Start on low residue diet today and likely discharge tomorrow am if tolerating diet. 5. No further recommendations for GI standpoint.
[2016-10-21 12:20] LABS: TSH (Thyroid Stimulating Horm) 2.2 mcIU/mL (0.34-5.60)
[2016-10-21] MEDS: Morphine INJ* 4 MG/ML 1 ML SYRINGE IV PRN ×2 (12:49→23:01)
[2016-10-21 13:33] LABS: Erythrocyte Sed Rate 43 mm/Hr (0-20)
[2016-10-21] MEDS: Acetaminophen TAB* 325 MG PO PRN ×2 (13:42→20:24)
[2016-10-21 14:20] LABS: Urine Bacteria Absent (Absent); Urine Bilirubin Negative (Negative); Urine Glucose Negative (Negative); Urine Nitrite Negative (Negative)
--- NOTE | 2016-10-21 15:08 | RAD ---
INDICATION: Fever. COMPARISON: Comparison is made with a prior CT of the chest from September 21, 2016 and a prior chest x-ray study from March 27, 2015. TECHNIQUE: AP and lateral views of the chest were obtained. FINDINGS: The patient is status post right pneumonectomy. There is shift of cardiac and mediastinal structures into the right hemithorax which is completely opacified and unchanged from the prior exam. The left lung appears clear. No pleural effusion is seen. IMPRESSION: STATUS POST RIGHT PNEUMONECTOMY, NO EVIDENCE FOR ACUTE FINDING.
[2016-10-22] MEDS: NS 0.9% 1000 ML* 1,000 ML IV SCH (01:25)
[2016-10-22] MEDS: Sucralfate SUSP 1 GM/10 ml 10 ML UDC PO SCH ×2 (06:13→11:22)
[2016-10-22 08:04] LABS: Hematocrit 30 % (42-52); Mean Corpuscular HGB Conc 34 g/dl (31-36); Mean Corpuscular Hemoglobin 34 pg (27-31); Mean Corpuscular Volume 102 fL (80-94); Mean Platelet Volume 8 um3 (7.4-10.4); Red Blood Count 2.92 10^6/ul (4.0-5.4); Red Cell Distribution Width 19 % (10.5-15); White Blood Count 10.5 10^3/ul (3.5-10.8)
[2016-10-22 08:34] VITALS: BP 150/83
[2016-10-22] MEDS: Multivitamins/Minerals TAB PO SCH (08:39)
[2016-10-22] MEDS: Lisinopril TAB* 10 MG PO SCH (08:39)
[2016-10-22] MEDS: Colchicine* 0.6 MG TAB PO SCH (08:39)
[2016-10-22] MEDS: Thiamine TAB* 100 MG TAB PO SCH (08:39)
[2016-10-22] MEDS: Folic Acid TAB* 1 MG PO SCH (08:39)
[2016-10-22] MEDS: Omeprazole CAP* 20 MG PO SCH (08:39)
--- NOTE | 2016-10-22 14:28 | PN ---
Subjective Date of Service: 10/22/16 Interval History: No abd pain, no nausea. No bowel c/o. Anxious to go home. No new c/o. Family History: Unchanged from Admission Social History: Unchanged from Admission Past Medical History: Unchanged from Admission Objective Active Medications: Acetaminophen (Tylenol Tab*) 650 mg PO Q6H PRN PRN Reason: PAIN Last Admin: 10/21/16 20:24 Dose: 650 mg Allopurinol (Zyloprim Tab*) 100 mg PO DAILY [facility] Colchicine (Colcrys*) 0.6 mg PO DAILY [facility] Stop: 10/25/16 09:01 Last Admin: 10/22/16 08:39 Dose: 0.6 mg Docusate Sodium (Colace Cap*) 200 mg PO DAILY PRN PRN Reason: CONSTIPATION Folic Acid (Folvite Tab*) 1 mg PO DAILY [facility] Last Admin: 10/22/16 08:39 Dose: 1 mg Lisinopril (Prinivil Tab*) 10 mg PO DAILY [facility] Last Admin: 10/22/16 08:39 Dose: 10 mg Lorazepam (Ativan Tab(*)) 0 - 6 mg PO .[facility] PROTOCOL [facility] PRN Reason: Protocol Last Admin: 10/19/16 22:30 Dose: 2 mg Morphine Sulfate (Morphine Inj (Syringe)*) 4 mg IV Q2H PRN PRN Reason: PAIN Last Admin: 10/21/16 23:01 Dose: 4 mg Multivitamins/Minerals (Theragran/Minerals Tab*) 1 tab PO DAILY [facility] Last Admin: 10/22/16 08:39 Dose: 1 tab Omeprazole (Prilosec Cap*) 20 mg PO BID [facility] Last Admin: 10/22/16 08:39 Dose: 20 mg Ondansetron HCl (Zofran Inj*) 4 mg IV Q4H PRN PRN Reason: NAUSEA Last Admin: 10/19/16 20:57 Dose: 4 mg Senna (Senokot Tab*) 1 tab PO DAILY PRN PRN Reason: CONSTIPATION Sucralfate (Sucralfate Susp) 1 gm PO 0700,1100,1600,2100 [facility] Last Admin: 10/22/16 11:22 Dose: 1 gm Thiamine HCl (Vitamin B-1 Tab*) 100 mg PO DAILY [facility] Last Admin: 10/22/16 08:39 Dose: 100 mg Vital Signs 10/21/16 10/21/16 10/21/16 16:11 19:46 20:00 Temperature 98.2 F 98.2 F Pulse Rate 113 108 Respiratory 16 16 18 Rate Blood Pressure 153/84 123/81 (mmHg) O2 Sat by Pulse 99 100 Oximetry 10/21/16 10/21/16 10/22/16 23:01 23:56 00:01 Temperature 98.8 F Pulse Rate 103 Respiratory 20 16 18 Rate Blood Pressure 138/77 (mmHg) O2 Sat by Pulse 97 Oximetry 10/22/16 10/22/16 10/22/16 04:52 08:00 08:01 Temperature 98.4 F 98.9 F Pulse Rate 99 97 Respiratory 20 18 18 Rate Blood Pressure 151/86 150/83 (mmHg) O2 Sat by Pulse 98 99 Oximetry Oxygen Devices in Use Now: None Appearance: Alert, sitting on the edge of his bed. In fair spirits. Looks comfortable. Eyes: No Scleral Icterus Respiratory: Symmetrical Chest Expansion and Respiratory Effort, Clear to Auscultation, Clear to Percussion Cardiovascular: NL Sounds; No Murmurs; No JVD, RRR, No Edema, - Extremities: No Edema, No Clubbing, Cyanosis, - Skin: No Rash or Ulcers, No Nodules or Sclerosis, - Neurological: Alert and Oriented x 3, NL Sensation Result Diagrams: 10/22/16 07:47 10/21/16 08:48 Microbiology and Other Data: Microbiology 10/20/16 17:00 Stool Occult Blood (STEPH) - Final Stool Assess/Plan/Problems-Billing Assessment: Severe esophagitits, lactic acidosis, intractable N/V in a 56 yo M with hx of HTN, GERD, EtOH abuse, lung cancer s/p pneumonectomy, CKD3 - Patient Problems (1) Alcohol abuse Current Visit: Yes Status: Acute Code(s): F10.10 - ALCOHOL ABUSE, UNCOMPLICATED SNOMED Code(s): 71158374 Comment: Patient is not ineterested in any type of help for his alcoholism. Continue thiamine. (2) Esophagitis Current Visit: Yes Status: Acute Code(s): K20.9 - ESOPHAGITIS, UNSPECIFIED SNOMED Code(s): 98673963 Comment: severe, noted on EGD. Continue PPI BID for 8 weeks. No active bleeding noted, no ulcers. Some gastropathy likely from EtOH. Fup Dr. Duncan. Carafate not continued on discharge to help with med compliance. (3) Gout Current Visit: Yes Status: Acute Code(s): M10.9 - GOUT, UNSPECIFIED SNOMED Code(s): 88863234 Comment: Responded well to cochicine onec daily. Continue 7 days after discharge while starting allopurinol 100 mg daily. Titrate up per uric acid and clinical response. (4) HTN (hypertension) Current Visit: Yes Status: Acute Code(s): I10 - ESSENTIAL (PRIMARY) HYPERTENSION SNOMED Code(s): 44827053 Comment: Resume Lisinopril that patient discontinued as an outpatient (5) S/P pneumonectomy Current Visit: Yes Status: Acute Code(s): Z90.2 - ACQUIRED ABSENCE OF LUNG [ PART OF] SNOMED Code(s): 966184013 Comment: APprox 10 yrs ago, R pneumonectomy for lung cancer. Quit smoking many yrs ago. Status and Disposition: Discharge now. Fup Dr. Duncan.
--- NOTE | 2016-10-22 18:10 | PN ---
Progress Note - Progress Note Date of Service: 10/22/16 Note: Time spent on discharge 40 minutes.
--- NOTE | 2016-10-22 23:24 | DS ---
CC: Dr. Duncan DISCHARGE SUMMARY: DATE OF ADMISSION: DATE OF DISCHARGE: 10/22/16 HISTORY: This 55-year-old man presented with coffee-ground emesis. The history is detailed in the dictated admission note. He did not require any transfusions. His hemoglobin fell from 14.1 on admission to 10.0 on the day of discharge. Some of the drop may have been due to rehydration. The patient underwent endoscopy on 10/20/16. He had esophagitis likely related to his alcohol abuse as well as gastritis. He was started on omeprazole and sucralfate. He improved quite a bit during the hospital stay and was nearly asymptomatic by the time of discharge eating normally. No bowel complaints. No nausea or vomiting. He also had polyarthralgias. He was found to have a uric acid of 9.8. He was started on colchicine, which gave a very significant improvement. He will continue on colchicine for 1 week while starting allopurinol 100 mg daily. The allopurinol can be titrated up as needed to reduce his uric acid level and control his joint symptoms. The patient refused any type of assistance or treatment for his alcohol problem. FINAL DIAGNOSES: 1. Alcohol abuse. 2. Esophagitis. 3. Gout. 4. Hypertension. 5. Status post pneumonectomy for lung cancer. DISCHARGE MEDICATIONS: 1. Allopurinol 100 mg daily. 2. Colchicine 0.6 mg daily for 1 week. 3. Lisinopril 10 mg daily. 4. Omeprazole 20 mg b.i.d. 5. Thiamine 100 mg daily. [id number]/[facility] #: [id number] MTDD
[2016-10-23] MEDS ORDERED: Allopurinol TAB* 100 MG PO SCH (09:00)
== END 2016-10-22 15:05 | disposition home or self-care (01) | DRG 243 ==
LOC: ED 12:36 → MEDTELE 16:52
PROVIDERS: ADMIT Internal Medicine; ATTEND Internal Medicine
PROC: 0DB68ZX Excision of Stomach, Via Natural or Artificial Opening Endoscopic, Diagnostic (ICD-10-PCS; principal; 2016-10-20)
DX: K20.8 Other esophagitis (principal); E87.2 Acidosis; N18.3 Chronic kidney disease, stage 3 (moderate); F10.10 Alcohol abuse, uncomplicated; Y90.6 Blood alcohol level of 120-199 mg/100 ml; M10.9 Gout, unspecified; K29.20 Alcoholic gastritis without bleeding; I12.9 Hypertensive chronic kidney disease with stage 1 through stage 4 chronic kidney disease, or unspecified chronic kidney disease; Z85.118 Personal history of other malignant neoplasm of bronchus and lung; Z79.899 Other long term (current) drug therapy; Z88.0 Allergy status to penicillin; Z82.49 Family history of ischemic heart disease and other diseases of the circulatory system; Z83.3 Family history of diabetes mellitus; Z80.3 Family history of malignant neoplasm of breast; Z80.8 Family history of malignant neoplasm of other organs or systems; Z80.0 Family history of malignant neoplasm of digestive organs; Z87.891 Personal history of nicotine dependence; M25.561 Pain in right knee; K44.9 Diaphragmatic hernia without obstruction or gangrene
CPT/HCPCS: 36415; 71020; 74176; 76705; 80048; 80053; 80320; 81003; 81015; 82272; 82803; 83605; 83690; 84145; 84443; 84550; 85014; 85018; 85025; 85610; 85652; 86140; 86850; 86900; 86901; 87040; 87086; 88305; 93005; 99156; 99157; A9270-GY; G0480; J0610; J2250; J2270; J2405; J3010

== ENCOUNTER 2017-05-08 04:50 | Emergency (ER) | payer OTHER ==
[2017-05-08] MEDS ORDERED: Lidocaine 2% EPI 1:200000 MPF* 20 ML VIAL ONE (04:56)
[2017-05-08] MEDS ORDERED: Cephalexin CAP* 500 MG PO ONE (05:32)
[2017-05-08] MEDS ORDERED: Tetan/Diph/Pertus SYR(Tdap)* 0.5 ML SYR(BOOSTRIX) use SYR IM ONE (05:32)
--- NOTE | 2017-05-08 06:14 | ED ---
Phan Oliveira Thomas, scribed for Allison Street MD on 05/08/17 at 0541 . Laceration/Wound HPI - HPI Summary HPI Summary: The patient is a 56 year old male. He was drinking alcohol when he tripped over a cat and struck the window. He has two lacerations to his right forearm. - History of Current Complaint Stated Complaint: RIGHT ARM LAC Time Seen by Provider: 05/08/17 05:32 Hx Obtained From: Patient Mechanism of Injury: Other - Window Onset/Duration: Sudden Onset, Still Present, Other Alleviating: Other - Nothing Current Severity: Severe Pain Intensity: 7 Pain Scale Used: 0-10 Numeric Associated Signs & Symptoms: Negative - fever Related Hx: Other - Tripped over cat - Additional Pertinent History Primary Care Physician: DENICE - Allergy/Home Medications Allergies/Adverse Reactions: Allergies Allergy/AdvReac Type Severity Reaction Status Date / Time MS Penicillins [Penicillins] Allergy Unknown Unknown Verified 07/01/12 13:08 Reaction Details PMH/Surg Hx/FS Hx/Imm Hx Endocrine/Hematology History: Denies: Hx Anticoagulant Therapy, Hx Diabetes, Hx Thyroid Disease Cardiovascular History: Reports: Hx Hypertension, Other Cardiovascular Problems/ Disorders - recent elevated bps Denies: Hx Pacemaker/ICD Respiratory History: Reports: Hx Lung Cancer, Other Respiratory Problems/ Disorders - s/p right pneumonectomy (Jan 2008) Denies: Hx Asthma, Hx Chronic Obstructive Pulmonary Disease (COPD) GI History: Reports: Hx Gastroesophageal Reflux Disease, Other GI Disorders - GERD History: Reports: Hx Acute Renal Failure - current elevated due to dehydration, Other Problems/Disorders - hx of renal issues s/p chemo tx Denies: Hx Renal Disease Musculoskeletal History: Denies: Hx Rheumatoid Arthritis, Hx Osteoporosis Sensory History: Reports: Hx Contacts or Glasses - reading Denies: Hx Hearing Aid Opthamlomology History: Reports: Hx Contacts or Glasses - reading Neurological History: Denies: Hx Dementia, Hx Seizures Psychiatric History: Reports: Hx Substance Abuse - ETOH - Cancer History Cancer Type, Location and Year: lung cancer 2007 Hx Chemotherapy: Yes - Surgical History Surgery Procedure, Year, and Place: RT. PNEUMONECTOMY, APPENDECTOMY Hx Anesthesia Reactions: No Infectious Disease History: No Infectious Disease History: Denies: Hx Hepatitis, Hx Human Immunodeficiency Virus (HIV), Traveled Outside the [place] in Last 30 Days - Family History Known Family History: Negative: Other - NEG: cirrhosis - Social History Alcohol Use: Daily Alcohol Amount: 6-7 shots of Vodka daily Hx Substance Use: No Substance Use Type: Reports: None Hx Tobacco Use: No Smoking Status (MU): Former Smoker Review of Systems Negative: Fever Positive: Other - Lacerations All Other Systems Reviewed And Are Negative: Yes Physical Exam - Summary Physical Exam Summary: VITAL SIGNS: Reviewed. GENERAL: Patient is a well-developed and nourished male who is lying comfortable in the stretcher. Patient is not in any acute respiratory distress. HEAD AND FACE: No signs of trauma. No ecchymosis, hematomas or skull depressions. No sinus tenderness. EYES: PERRLA, EOMI x 2, No injected conjunctiva, no nystagmus. EARS: Hearing grossly intact. Ear canals and tympanic membranes are within normal limits. MOUTH: Oropharynx within normal limits. NECK: Supple, trachea is midline, no adenopathy, no JVD, no carotid bruit, no c- spine tenderness, neck with full ROM. CHEST: Symmetric, no tenderness at palpation LUNGS: Clear to auscultation bilaterally. No wheezing or crackles. CVS: Regular rate and rhythm, S1 and S2 present, no murmurs or gallops appreciated. ABDOMEN: Soft, non-tender. No signs of distention. No rebound no guarding, and no masses palpated. Bowel sounds are normal. EXTREMITIES: FROM in all major joints, no edema, no cyanosis or clubbing. NEURO: Alert and oriented x 3. No acute neurological deficits. Speech is normal and follows commands. SKIN: He has two lacerations on his right forearm, one on the ventral aspect and one on the dorsal aspect. They are 5 inches in length Triage Information Reviewed: Yes Vital Signs On Initial Exam: Initial Vitals Temp Pulse Resp BP Pulse Ox 98.2 F 117 18 128/99 95 05/08/17 04:50 05/08/17 04:50 05/08/17 04:50 05/08/17 04:50 05/08/17 04:50 Vital Signs Reviewed: Yes Procedures - Laceration/Wound Repair Ventral aspect of right forearm Location: Other - Ventral aspect of right forearm Description: Linear Anesthesia: Local, 2.0%, Epi Length, Depth and Shape: 5 inches. Chromic sutures. Inner layer was closed with 6 stitches. 20 dean were applied on the outer layer Closure: [place] #__ - 20 Suture Type: Chromic Dorsal aspect of right forearm Location: Other - Dorsal aspect of right forearm Anesthesia: Local, 2.0%, Epi Length, Depth and Shape: 5 inches. Chromic sutures. Inner layer was closed with 6 stitches. 20 daen were applied on the outer layer Closure: [place] #__ - 20 Suture Type: Chromic Diagnostics - Vital Signs Vital Signs Temp Pulse Resp BP Pulse Ox 05/08/17 04:50 98.2 F 117 18 128/99 95 - Laboratory Lab Statement: Any lab studies that have been ordered have been reviewed, and results considered in the medical decision making process. Re-Evaluation - Re-Evaluation First Eval Re-Evaluation Time: 05:50 Comment: Patient will be discharged. Laceration Repair Course/Dx - Course Assessment/Plan: The patient is a 56 year old male. He was drinking alcohol when he tripped over a cat and struck the window. He has two lacerations on his right forearm, one on the ventral aspect and one on the dorsal aspect. They are 5 inches in length. These lacerations were repaired. The patient was instructed to follow up with primary care in 2 days and again in 10-14 days for staple removal. I recommended Tylenol for the pain. He was advised to keep the arm elevated. I gave the patient return precautions for compartment syndrome, and urged him to go to the emergency department if he had any concerning symptoms. - Clinical Impression Provider Diagnoses: Laceration of right forearm Discharge - Sign-Out/Discharge Documenting (check all that apply): Discharge - Discharge Plan Condition: Stable Disposition: HOME Prescriptions: Cephalexin CAP* [Keflex CAP*] 500 mg PO QID #30 cap Patient Education Materials: Laceration (ED), Compartment Syndrome (DC), Staple Care (ED) Referrals: Harinder Duncan MD [Primary Care Provider] - 2 Days Additional Instructions: Follow up at Dr. Duncan's office in 2-3 days. You will need to follow up at his office again in 10-14 days for removal of the dean. I recommend Tylenol for the pain. Keep the arm elevated. I have attached discharge instructions for compartment syndrome. I am not diagnosing you with compartment syndrome--however, I want you to keep on the lookout for symptoms of compartment syndrome. You need to go to the emergency room if you develop symptoms of compartment syndrome. The documentation as recorded by the Phan chahal Thomas accurately reflects the service I personally performed and the decisions made by me, Allison Street MD.
[2017-05-08 06:25] VITALS: BP 148/90
== END 2017-05-08 06:24 | disposition home or self-care (01) ==
LOC: ED 04:50
DX: S51.811A Laceration without foreign body of right forearm, initial encounter (principal); W01.0XXA Fall on same level from slipping, tripping and stumbling without subsequent striking against object, initial encounter; Y92.9 Unspecified place or not applicable; Z87.891 Personal history of nicotine dependence
CPT/HCPCS: 12004; 90471; 90715; 99282; A9270-GY

== ENCOUNTER 2017-05-16 16:43 | Inpatient (IN) | payer OTHER ==
[2017-05-16] MEDS ORDERED: LORazepam INJ* 2 MG/ML 1 ML VIAL IV PUSH ONE ×2 (17:16→18:30)
[2017-05-16 17:36] LABS: Urine Appearance Clear; Urine Blood 2+ (Negative); Urine Color Yellow; Urine Ketones 2+ (Negative); Urine Protein 3+(>=500 mg/dL) (Negative); Urine Specific Gravity 1.017 (1.010-1.030); Urine Urobilinogen Positive (Negative)
--- NOTE | 2017-05-16 17:54 | RAD ---
INDICATION: Chest pain. COMPARISON: Most recent comparison chest x-rays dated October 21, 2016 TECHNIQUE: Single AP portable view of the chest was obtained. FINDINGS: Image quality is compromised due to the relative inferiority of a portable chest x-ray. Similar to the prior chest x-ray there is opacification overlying the right hemithorax with [id number] mediastinal shift. The left lung appears to be adequately aerated. IMPRESSION: Complete opacification of the right lung with left to right mediastinal shift unchanged from the October 21, 2016 chest x-ray.
[2017-05-16 18:27] LABS: ABS Basophils 0 10^3/ul (0-0.2); ABS Eosinophils 0 10^3/ul (0-0.6); ABS Lymphocytes 0.8 10^3/ul (1.0-4.8); ABS Monocytes 0.8 10^3/ul (0-0.8); ABS Neutrophils 4.8 10^3/ul (1.5-7.7); ABS Nucleated RBC 0 10^3/ul; Eosinophil % 0.5 % (0-6); Hematocrit 41 % (42-52); Hemoglobin 13.6 g/dl (14.0-18.0); Lymphocyte % 12.3 % (25-47); Mean Corpuscular HGB Conc 33 g/dl (31-36); Mean Corpuscular Hemoglobin 34 pg (27-31); Mean Corpuscular Volume 103 fL (80-94); Mean Platelet Volume 7.3 um3 (7.4-10.4); Nucleated Red Blood Cells % 0.2; Platelet Count 176 10^3/ul (150-450); Red Blood Count 3.96 10^6/ul (4.0-5.4); Red Cell Distribution Width 17 % (10.5-15); White Blood Count 6.5 10^3/ul (3.5-10.8)
[2017-05-16] MEDS ORDERED: NS 0.9% 1000 ML* 1,000 ML IV ONE (18:30)
[2017-05-16] MEDS ORDERED: Magnesium Sulfate 2 GM IV* 2 GM/50 ML BAG IVPB ONE (18:46)
[2017-05-16] MEDS ORDERED: Aspirin TAB* 325 MG PO ONE (19:32)
[2017-05-16] MEDS ORDERED: Acetaminophen TAB* 325 MG PO PRN (20:22)
[2017-05-16] MEDS ORDERED: Magnesium Sulf 4 GM/100 ML IV* 4,000 MG/100 ML BAG IVPB ONE (20:27)
[2017-05-16] MEDS ORDERED: Ondansetron INJ* 2 MG/ML VIAL IV PRN (20:28)
[2017-05-16] MEDS ORDERED: hydrALAZINE IV* 20 MG/ML VIAL IV SLOW PU PRN (20:35)
--- NOTE | 2017-05-16 20:44 | ED ---
Lara Oliveira Julia, scribed for Rianna Ybarra MD on 05/16/17 at 1759 . HPI Chest Pain - HPI Summary HPI Summary: This patient is a 56 year old M BIBA to [facility] with a chief complaint of intermittent chest pain last night and today around 14:00 today. Pt describes chest tightness with deep breath and SOB with mild exertion. Patient reports blurry vision, dehydration and vomiting for the past four to five days. Pt has a hx of alcoholism and states he stopped drinking two days ago. Pt has shaking in morning that is resolved by drinking alcohol. Patient denies ear ache, sore throat, new abdominal pain, new back pain, dysuria, lower extremity edema, or unexplained rashes/bruises. Pt had total R pneumonectomy. - History of Current Complaint Chief Complaint: EDChestPainROMI Hx Obtained From: Patient Onset/Duration: Started Days Ago Timing: Constant Pain Intensity: 0 Chest Pain Location: Mid Sternal Aggravating Factor(s): Exertion Alleviating Factor(s): Rest Associated Signs and Symptoms: Positive: Chest Pain, Shortness of Breath, Vomiting, Other: - dehydration - Additional Pertinent History Primary Care Physician: [id number] - Allergy/Home Medications Allergies/Adverse Reactions: Allergies Allergy/AdvReac Type Severity Reaction Status Date / Time Penicillins Allergy Rash Verified 05/16/17 17:41 Home Medications: Home Medications Multivitamins/Minerals TAB* [Theragran/minerals TAB*] 1 tab PO DAILY 05/16/17 [ History Confirmed 05/16/17] PMH/Surg Hx/FS Hx/Imm Hx Endocrine/Hematology History: Denies: Hx Anticoagulant Therapy, Hx Diabetes, Hx Thyroid Disease Cardiovascular History: Reports: Hx Hypertension, Other Cardiovascular Problems/ Disorders - recent elevated bps Denies: Hx Pacemaker/ICD Respiratory History: Reports: Hx Lung Cancer, Other Respiratory Problems/ Disorders - s/p right pneumonectomy (Jan 2008) Denies: Hx Asthma, Hx Chronic Obstructive Pulmonary Disease (COPD) GI History: Reports: Hx Gastroesophageal Reflux Disease, Other GI Disorders - GERD History: Reports: Hx Acute Renal Failure - current elevated due to dehydration, Other Problems/Disorders - hx of renal issues s/p chemo tx Denies: Hx Renal Disease Musculoskeletal History: Denies: Hx Rheumatoid Arthritis, Hx Osteoporosis Sensory History: Reports: Hx Contacts or Glasses - reading Denies: Hx Hearing Aid Opthamlomology History: Reports: Hx Contacts or Glasses - reading Neurological History: Denies: Hx Dementia, Hx Seizures Psychiatric History: Reports: Hx Substance Abuse - ETOH - Cancer History Cancer Type, Location and Year: lung cancer 2007 Hx Chemotherapy: Yes - Surgical History Surgery Procedure, Year, and Place: RT. PNEUMONECTOMY, APPENDECTOMY Hx Anesthesia Reactions: No Infectious Disease History: No Infectious Disease History: Denies: Hx Hepatitis, Hx Human Immunodeficiency Virus (HIV), Traveled Outside the [place] in Last 30 Days - Family History Known Family History: Negative: Other - NEG: cirrhosis - Social History Alcohol Use: Daily Alcohol Amount: 6-7 shots of Vodka daily Hx Substance Use: No Substance Use Type: Reports: None Hx Tobacco Use: No Smoking Status (MU): Former Smoker Review of Systems Negative: Fever Positive: Blurred Vision Negative: Sore Throat, Ear Ache Positive: Chest Pain Positive: Shortness Of Breath Positive: Vomiting. Negative: Abdominal Pain, Diarrhea Positive: no symptoms reported Negative: Edema Negative: Rash, Bruising Positive: Other - alcoholism All Other Systems Reviewed And Are Negative: No Physical Exam - Summary Physical Exam Summary: Appearance: Alert, conversive, nontoxic appearing Skin: Warm, dry, no mottling, no rashes, no contusions HEENT: EOMI, PERRL, moist mucous membranes Neck: No masses on the neck, supple Respiratory: Clear to auscultation, breath sounds present, no rales, no rhonchi , no wheezes, there are referred breath sounds on the right Cardiovascular: RRR, pulses are symmetrical in both lower and upper extremities Abdomen: Soft, non-tender Bowel Sounds: Present Musculoskeletal: No CVA tenderness, no obvious deformity, moving all extremities in a grossly normal manner Neurological: A&Ox3, CN II-XII Intact, moving all extremities symmetrically Psychiatric: Normal affect and mood Triage Information Reviewed: Yes Vital Signs On Initial Exam: Initial Vitals Temp Pulse Resp BP Pulse Ox 98.2 F 115 20 166/110 98 05/16/17 16:57 05/16/17 16:57 05/16/17 16:57 05/16/17 16:57 05/16/17 16:57 Vital Signs Reviewed: Yes Diagnostics - Vital Signs Vital Signs Temp Pulse Resp BP Pulse Ox 05/16/17 17:25 18 05/16/17 16:57 98.2 F 115 20 166/110 98 - Laboratory Lab Results: Lab Results 05/16/17 Range/Units 17:14 Urine Color Yellow Urine Appearance Clear Urine pH 5.0 (5-9) Ur Specific [place] 1.017 (1.010-1.030) Urine Protein 3+(>=500 mg/dl) A (Negative) Urine Ketones 2+ A (Negative) Urine Blood 2+ A (Negative) Urine Nitrate Negative (Negative) Urine Bilirubin Negative (Negative) Urine Urobilinogen Positive A (Negative) Ur Leukocyte Esterase Negative (Negative) Urine WBC (Auto) Trace(0-5/hpf) (Absent) Urine RBC (Auto) Trace(0-2/hpf) (Absent) Ur Squamous Epith Cells Present A (Absent) Urine Bacteria Absent (Absent) Hyaline Casts Present A (Absent) Urine Glucose Negative (Negative) Result Diagrams: 05/16/17 18:06 05/16/17 18:06 Lab Statement: Any lab studies that have been ordered have been reviewed, and results considered in the medical decision making process. - Radiology CXR Radiology Interpretation Completed By: Radiologist - Complete opacification of the right lung with left to right mediastinal shift unchanged from the October 21, 2016 chest x-ray. ED Physician has reviewed this report. - EKG 1701 Cardiac Rate: Tachycardia - at 112 EKG Rhythm: Sinus Tachycardia EKG Interpretation: nml QRS, nml QTc, nml STT waves Re-Evaluation - Re-Evaluation 1 Re-Evaluation Time: 19:40 Comment: Informed pt of results. Pt will be admitted. Chest Pain Course/Dx - Course Course Of Treatment: Pt presents with intermittent chest pain last night and today around 14:00 today. Pt describes chest tightness with deep breath and SOB with mild exertion. Patient reports blurry vision, dehydration and vomiting for the past four to five days. A CXR is unremarkable besides previously noted pneumonectomy. And EKG reveals tachycardia. Lab results are WNL. Pt has a hx of alcoholism.Pt is tachycardic, with etoh withdrawl and dehydration. Pt is given Ativan, ASA, Magnesium Sulfate, and IV fluids. Dr. Lang agrees to admit this patient. - Diagnoses Provider Diagnoses: Alcohol withdrawal, Dehydration, Chest pain - Provider Notifications Discussed Care Of Patient With: Josse Lang - hospitalist Time Discussed With Above Provider: 19:30 Instructed by Provider To: Admit As Inpatient Discharge - Sign-Out/Discharge Documenting (check all that apply): Discharge - admit - Discharge Plan Condition: Stable Disposition: ADMITTED TO [facility] Referrals: Harinder Duncan MD [Primary Care Provider] - - Billing Disposition and Condition Condition: STABLE Disposition: [facility] [place], [place] The documentation as recorded by the Lara chahal Julia accurately reflects the service I personally performed and the decisions made by Amada alegria Norma, MD.
[2017-05-16] MEDS ORDERED: Aspirin 81 mg CHEW TAB* 81 MG TAB.CHEW ONE (20:52)
[2017-05-16] MEDS ORDERED: Aspirin 81 mg CHEW TAB* 81 MG TAB.CHEW PO ONE (20:54)
[2017-05-16] MEDS ORDERED: LORazepam TAB(*) 1 MG PO SCH (21:00)
[2017-05-16] MEDS: NS 0.9% 1000 ML* 1,000 ML IV SCH (22:51)
[2017-05-16] MEDS: Heparin VIAL(*) 5000 UNITS/ML VIAL (FIVE THOUSAND) SUBCUT SCH (23:25)
[2017-05-17] MEDS ORDERED: Magnesium Sulfate 2 GM IV IVPB ONE (01:23)
--- NOTE | 2017-05-17 03:44 | HP ---
CC: Dr. Duncan * [facility] MEDICINE HISTORY AND PHYSICAL: DATE OF ADMISSION: 05/16/17 PRIMARY CARE PHYSICIAN: Dr. Duncan. ATTENDING PHYSICIAN: Dr. Josse Lang * (dictation provided by Alla Whittaker NP). CHIEF COMPLAINT: Chest tingling and alcohol withdrawal symptoms. HISTORY OF PRESENT ILLNESS: Mr. Rojas is a 56-year-old male with a past medical history of alcohol abuse; lung cancer, with right lobectomy; hypertension, not on current medications, who presents to the hospital today with concern for tingling in his chest. Mr. Rojas was just in our hospital emergency room on 05/08/17, at which time, he reported he had been drinking and fell over a cat. He had major lacerations to his right arm, which were treated here in the ED. The patient states that he stopped drinking 2 days ago. He reports that this was because he was not feeling well with vomiting and poor oral intake. Yesterday began having some tingling sensations in his chest. He reports that they are mid chest. He has various descriptions of it including tingling, crushing, tightness, and electrical shocks. He states that these were not associated with activity; they seem to happen randomly. They lasted for a few seconds at a time. They did not radiate. They are not associated with nausea or diaphoresis. He states that again his last drink of alcohol was 2 days ago. He reports that he drinks 2 martinis a night. He denied any diaphoresis or hallucinations at home, but did report tremor. In the emergency room, Mr. Rojas is clearly in alcohol withdrawal. His heart rate was elevated to the 120s. His blood pressure was elevated. He has been given Ativan. He is tremulous. He states he does not have any chest pain now. His labs show that he has a BUN of 30 and creatinine of 1.53, which is up from baseline. He has a magnesium of 1.1, total bilirubin of 1.6.. His hemoglobin is 13.6, his alcohol level is less than 10. He shows no evidence of infection. Chest x-ray is consistent with his history of right lobectomy and pneumonectomy. Also, his troponin is 0.03. PAST MEDICAL HISTORY: 1. Lung cancer, status post right pneumonectomy. 2. Alcohol abuse. 3. Hypertension, not on current medications. 4. Gout. 5. Esophagitis. MEDICATIONS: Multivitamin daily. ALLERGIES: PENICILLIN. FAMILY HISTORY: The patient reports that his mother had mouth cancer, diabetes , and his father had heart disease and colon cancer, his sister with breast cancer. SOCIAL HISTORY: The patient quit smoking 10 years ago when he was diagnosed with lung cancer and report of drug use. He is a daily drinker. He states that his friend, Karime, would be the healthcare proxy. REVIEW OF SYSTEMS: A 14-point review of systems was completed with Mr. Rojas and all those not mentioned above were negative. PHYSICAL EXAMINATION GENERAL: Mr. Rojas is lying in the bed. He smells of alcohol, but he is in no acute distress. VITAL SIGNS: Temperature 98.2, pulse rate 99, respiratory rate 23, O2 saturation 100% on room air, blood pressure 161/102. LUNGS: Clear to auscultation bilaterally, but there are no lung sounds heard on the right side. HEART: S1, S2. No murmur, rub, or gallop, and regular. ABDOMEN: Soft, nontender with bowel sounds positive x4. EXTREMITIES: No cyanosis or edema. NEUROLOGIC: He is alert, he is oriented x3. He moves all extremities equally. There is no facial asymmetry or focal weakness. Extraocular movements are intact. DIAGNOSTIC STUDIES/LAB DATA: Sodium 135, potassium 4.4, chloride 92, serum bicarbonate 17, BUN 30, creatinine 1.53, glucose 96, magnesium 1.1. T-bili 1.6 , AST 50, ALT 46, alk phos 107. TSH 1.85. WBC 6.5, hemoglobin 13.6, hematocrit 41, platelet count 176. Urine shows no evidence of infection. Tox screen is negative. Serum alcohol level is less than 10. Chest x-ray is read as follows: "Complete opacification of the right lung with left to right mediastinal shift unchanged from 10/21/2016 chest x-ray. EKG shows sinus tachycardia with no evidence of ischemia with heart rate of about 120. ASSESSMENT AND PLAN: Mr. Rojas is a 56-year-old male with a past medical history of alcoholism, lung cancer with right lobectomy and hypertension, who presents today to the hospital with concern for chest pain and alcohol withdrawal. Our plans are for observation in the hospital for the followin. Chest pain: At this point, the patient is evidencing alcohol withdrawal. However, he does report chest pain prior to admission. His first troponin is negative. I would like to repeat the troponin x2 and monitor him on the telemetry unit in addition to obtaining additional EKGs if he has further pain. I am not ordering a stress test at this time, as I am concerned that the patient may be in complete alcohol withdrawal by tomorrow morning. Plan to reassess for appropriateness of further testing in AM. 2. Hypertension: The patient's blood pressure is elevated. At this time, I think this is secondary to alcohol withdrawal. He can have hydralazine available p.r.n. 3. DVT prophylaxis with heparin subcu. 4. Code status is full code. TIME SPENT: Approximately 60 minutes was spent on the admission of this patient , more than half the time was spent with patient at the bedside reviewing the events leading up to this hospitalization, performing physical examination, reviewing my plan of care. ALLA WHITTAKER NP [id number]/CPS #: [id number] ROGE
[2017-05-17] MEDS: Heparin VIAL(*) 5000 UNITS/ML VIAL (FIVE THOUSAND) SUBCUT SCH ×3 (06:26→20:30)
[2017-05-17] MEDS: Omeprazole CAP* 20 MG PO SCH ×2 (06:26→18:23)
[2017-05-17] MEDS: NS 0.9% 1000 ML* 1,000 ML IV SCH (07:19)
[2017-05-17] MEDS: Thiamine TAB* 100 MG TAB PO SCH (07:20)
[2017-05-17] MEDS: Aspirin TAB* 325 MG PO SCH (07:20)
[2017-05-17] MEDS: Folic Acid TAB* 1 MG PO SCH (07:20)
[2017-05-17] MEDS: Multivitamins/Minerals TAB PO SCH (07:20)
[2017-05-17 07:38] LABS: EGFR Non-African American 59.9 (>60)
[2017-05-17] MEDS: Magnesium Chloride EC TAB* 64 MG PO SCH (11:02)
[2017-05-17] MEDS ORDERED: amLODIPine TAB* 5 MG PO ONE (17:41)
--- NOTE | 2017-05-17 17:55 | PN ---
Subjective Date of Service: 05/17/17 Interval History: Patient seen and examined. Was told he was having a stress test today, however he cannot recall who told him that. Explained he is not having a stress test as he is detoxing and has multiple electrolyte abnormalities that should be corrected first. When he is stabilized, he may elect to have one as an outpatient. Patient agreeable. States he is tremulous and nauseous, no longer vomiting, no chest pain, no SOB. Objective Active Medications: Acetaminophen (Tylenol Tab*) 650 mg PO Q4H PRN PRN Reason: PAIN Amlodipine Besylate (Norvasc Tab*) 5 mg PO DAILY [facility] Aspirin (Aspirin Tab*) 325 mg PO DAILY [facility] Last Admin: 05/17/17 07:20 Dose: 325 mg Folic Acid (Folvite Tab*) 1 mg PO DAILY [facility] Last Admin: 05/17/17 07:20 Dose: 1 mg Heparin Sodium (Porcine) (Heparin Vial(*)) 5,000 units SUBCUT Q8HR [facility] Last Admin: 05/17/17 13:59 Dose: 5,000 units Hydralazine HCl (Apresoline Iv*) 5 mg IV SLOW PU Q6H PRN PRN Reason: sbp > 185 Sodium Chloride (Ns 0.9% 1000 Ml*) 1,000 mls @ 125 mls/hr IV PER RATE [facility] Stop: 05/18/17 04:29 Last Admin: 05/17/17 07:19 Dose: 125 mls/hr Lactated Ringer's (Lactated Ringers 1000 Ml Bag*) 1,000 mls @ 100 mls/hr IV PER RATE [facility] Lorazepam (Ativan Tab(*)) 0 - 6 mg PO .PER [facility] PROTOCOL SHABANA PRN Reason: Protocol Magnesium Chloride (Slow Mag Ec Tab*) 128 mg PO DAILY [facility] Last Admin: 05/17/17 11:02 Dose: 128 mg Multivitamins/Minerals (Theragran/Minerals Tab*) 1 tab PO DAILY [facility] Last Admin: 05/17/17 07:20 Dose: 1 tab Omeprazole (Prilosec Cap*) 20 mg PO 0600,1800 [facility] Last Admin: 05/17/17 06:26 Dose: 20 mg Ondansetron HCl (Zofran Inj*) 4 mg IV Q6H PRN PRN Reason: NAUSEA Thiamine HCl (Vitamin B-1 Tab*) 100 mg PO DAILY [facility] Last Admin: 05/17/17 07:20 Dose: 100 mg Vital Signs - 8 hr 05/17/17 05/17/17 05/17/17 11:34 12:34 13:55 Temperature 98.4 F 98.1 F 97.7 F Pulse Rate 99 94 99 Respiratory 16 15 16 Rate Blood Pressure 143/96 147/89 169/95 (mmHg) O2 Sat by Pulse 100 100 100 Oximetry 05/17/17 15:32 Temperature 98.3 F Pulse Rate 97 Respiratory 16 Rate Blood Pressure 160/104 (mmHg) O2 Sat by Pulse 100 Oximetry Oxygen Devices in Use Now: None Appearance: Alert, mild distress Eyes: No Scleral Icterus, PERRLA Ears/Nose/Mouth/Throat: - - dry oral mucosa Neck: NL Appearance and Movements; NL JVP, Trachea Midline Respiratory: Symmetrical Chest Expansion and Respiratory Effort, Clear to Auscultation Cardiovascular: NL Sounds; No Murmurs; No JVD, RRR, No Edema Abdominal: NL Sounds; No Tenderness; No Distention, No Hepatosplenomegaly Extremities: No Edema Neurological: Alert and Oriented x 3 Nutrition: Taking PO's Result Diagrams: 05/16/17 18:06 05/17/17 07:04 Additional Lab and Data: Lab Results 05/16/17 Range/Units 17:14 Urine Color Yellow Urine Appearance Clear Urine pH 5.0 (5-9) Ur Specific Kodak 1.017 (1.010-1.030) Urine Protein 3+(>=500 mg/dl) A (Negative) Urine Ketones 2+ A (Negative) Urine Blood 2+ A (Negative) Urine Nitrate Negative (Negative) Urine Bilirubin Negative (Negative) Urine Urobilinogen Positive A (Negative) Ur Leukocyte Esterase Negative (Negative) Urine WBC (Auto) Trace(0-5/hpf) (Absent) Urine RBC (Auto) Trace(0-2/hpf) (Absent) Ur Squamous Epith Cells Present A (Absent) Urine Bacteria Absent (Absent) Hyaline Casts Present A (Absent) Urine Glucose Negative (Negative) Assess/Plan/Problems-Billing Assessment: This is a 56 year old man admitted for ETOH withdrawal, HTN and unspecified chest pain. - Patient Problems (1) Alcohol abuse Code(s): F10.10 - ALCOHOL ABUSE, UNCOMPLICATED SNOMED Code(s): 76385066 Comment: - Patient states he has detox'ed multiple times in the past and continues to drink - Last drink 4 days ago - Recommend SW to certified alcohol counselor, although the patient is likely not interested in a program as per previous admissions. - Would not initiate BB unless patient scoring higher on his WAM and also receiving benzo therapy, continue to monitor - Continue thiamine, MVI (2) CKD (chronic kidney disease) stage 3, GFR 30-59 ml/min Code(s): N18.3 - CHRONIC KIDNEY DISEASE, STAGE 3 (MODERATE) SNOMED Code(s): 828642968 Comment: - With acute dehydration - Change to LR for maintenance (3) GERD (gastroesophageal reflux disease) Code(s): K21.9 - GASTRO-ESOPHAGEAL REFLUX DISEASE WITHOUT ESOPHAGITIS SNOMED Code(s): 410559614 Comment: - Continue PPI (4) HTN (hypertension) Code(s): I10 - ESSENTIAL (PRIMARY) HYPERTENSION SNOMED Code(s): 40773094 Comment: - Not taking meds - Amlodipine now and then daily for DBP>100, apresoline PRN (5) Tachycardia Code(s): R00.0 - TACHYCARDIA, UNSPECIFIED SNOMED Code(s): 1793803 Comment: - Likley r/t detox and dehydration - Sinus tach on EKG - Continue tele - IVF at maintenance (6) Hypomagnesemia Code(s): E83.42 - HYPOMAGNESEMIA SNOMED Code(s): 024683742 Comment: - Acute on chronic - s/p 6gm mag sulfate, level is 1.8 today - Start slow-mag tomorrow Status and Disposition: Remain inpatient Counseling and/or Coordination of Care Minutes: coordinated with RN and patient
[2017-05-18] MEDS: Heparin VIAL(*) 5000 UNITS/ML VIAL (FIVE THOUSAND) SUBCUT SCH (05:17)
[2017-05-18] MEDS: Omeprazole CAP* 20 MG PO SCH (05:17)
[2017-05-18 06:52] LABS: EGFR Non-African American 67.3 (>60)
[2017-05-18] MEDS: Aspirin TAB* 325 MG PO SCH (08:12)
[2017-05-18] MEDS: Folic Acid TAB* 1 MG PO SCH (08:12)
[2017-05-18] MEDS: Thiamine TAB* 100 MG TAB PO SCH (08:12)
[2017-05-18] MEDS: Magnesium Chloride EC TAB* 64 MG PO SCH (08:12)
[2017-05-18] MEDS: Multivitamins/Minerals TAB PO SCH (08:12)
[2017-05-18] MEDS ORDERED: Potassium Chlor TAB* 20 MEQ TAB.ER PO ONE (08:21)
[2017-05-18] MEDS ORDERED: amLODIPine TAB* 5 MG PO SCH (09:00)
[2017-05-18 11:53] VITALS: BP 142/80
--- NOTE | 2017-05-19 01:57 | DS ---
CC: Dr. Duncan * DISCHARGE SUMMARY: DATE OF ADMISSION: 05/16/17 DATE OF DISCHARGE: 05/18/17 PRIMARY CARE PROVIDER: Dr. Duncan. PRIMARY DIAGNOSIS: Alcohol withdrawal. SECONDARY DIAGNOSES: 1. Acute kidney injury. 2. Hypomagnesemia. 3. Chest discomfort. 4. Hypertension. MEDICATIONS ON DISCHARGE: Include: 1. Multivitamin 1 tab daily. 2. Amlodipine 5 mg daily. 3. Aspirin 81 mg daily. Please note the addition of amlodipine and aspirin. PROCEDURES/IMAGING PERFORMED DURING HOSPITAL STAY: None. PERTINENT LABORATORY DATA: Notable for creatinine on presentation 1.5, on discharge 1.12. HISTORY OF PRESENT ILLNESS AND HOSPITAL COURSE: This is a 56-year-old man presented to the hospital with chest discomfort and has serial negative troponins noted, begin alcohol withdrawal on presentation. Serum alcohol is less then 10. He notes that he drinks and has drunk for approximately 16 hours per day because he has been bored, but denies depression. When we further inquired about the quantity of his alcohol consumption, he says he only drinks 2 martinis a day, but could not rectify how he only drinks 2 drinks and is drunk for 16 hours. He stopped drinking because he decided he wanted to stop, presented to the hospital in alcohol withdrawal. He received Ativan. He has a WAM protocol with his last dose the day prior to discharge at 7 p.m. He was noted to have hypertension during the course of the hospital stay with systolic blood pressures as high as 170, was started on amlodipine 5 mg daily. On the day of discharge, his blood pressure was 142/80. We will not increase antihypertensives at this time as he has already received one prior dose. He feels close to baseline without any nausea, vomiting, lightheadedness, hallucinations, anxiety or tremulousness, but does feel little bit of head cloudiness, hence that he feels slower than usual. He feels confident that he is going to stop drinking with the support of his roommate, Karime. He declines any assistance and placement in the outpatient rehabilitation services. There are no complications during the course of his hospital stay. At followup please: 1. Evaluate for continued alcohol cessation. 2. Blood pressure control. Reasons to return to the hospital including, but not limited to recurrent or worsening symptoms, chest pain, shortness of breath, nausea, vomiting, lightheadedness, loss of consciousness, inability to obtain or tolerate medications discussed with patient. He acknowledged understanding. TIME SPENT: Greater than 60 minutes were spent on the discharge of this patient , greater than half was spent [id number] with the patient. [id number]/[facility] #: [id number] ROGE
== END 2017-05-18 15:00 | disposition home or self-care (01) | DRG 775 ==
LOC: ED 16:43 → MEDTELE 20:20 → OBSVTOIN 05-17 09:30
PROVIDERS: ADMIT Hospitalist; ATTEND Internal Medicine
DX: F10.239 Alcohol dependence with withdrawal, unspecified (principal); N17.9 Acute kidney failure, unspecified; E86.0 Dehydration; M10.9 Gout, unspecified; E83.42 Hypomagnesemia; R00.0 Tachycardia, unspecified; N18.3 Chronic kidney disease, stage 3 (moderate); Y90.0 Blood alcohol level of less than 20 mg/100 ml; R07.9 Chest pain, unspecified; K21.9 Gastro-esophageal reflux disease without esophagitis; I12.9 Hypertensive chronic kidney disease with stage 1 through stage 4 chronic kidney disease, or unspecified chronic kidney disease; Z90.2 Acquired absence of lung [part of]; Z88.0 Allergy status to penicillin; Z83.3 Family history of diabetes mellitus; Z80.3 Family history of malignant neoplasm of breast; Z80.0 Family history of malignant neoplasm of digestive organs; Z80.8 Family history of malignant neoplasm of other organs or systems; Z82.49 Family history of ischemic heart disease and other diseases of the circulatory system; Z85.118 Personal history of other malignant neoplasm of bronchus and lung; Z92.21 Personal history of antineoplastic chemotherapy; Z87.891 Personal history of nicotine dependence; Z79.82 Long term (current) use of aspirin
CPT/HCPCS: 36415; 71045; 80048; 80053; 80307; 80320; 81003; 81015; 83735; 84443; 84484; 85025; 87086; 93005; 99285; A9270-GY; G0378; G0480; J0360; J1644; J2060; J3475

== ENCOUNTER 2017-07-26 14:13 | Inpatient (IN) | payer OTHER ==
[2017-07-26] MEDS ORDERED: Thiamine IV* 100 MG/ML 2 ML VIAL IM ONE (14:24)
[2017-07-26] MEDS ORDERED: Thiamine IV 100 MG, Folic Acid IV* 1 MG, Multiple Vitamin IV ADULT* 10 ML in D5NS 0.9% ... IV ONE (14:24)
[2017-07-26] MEDS ORDERED: NS 0.9% 1000 ML* 1,000 ML IV ONE (14:24)
[2017-07-26] MEDS ORDERED: Metoclopramide IV* 5 MG/ML 2 ML VIAL IV SLOW PU ONE (14:25)
[2017-07-26] MEDS ORDERED: LORazepam INJ* 2 MG/ML 1 ML VIAL IV PUSH ONE (14:25)
[2017-07-26] MEDS ORDERED: Multiple Vitamin IV ADULT* 10 ML VIAL ONE (14:45)
[2017-07-26] MEDS ORDERED: D5NS 0.9% 1000 ML BAG* 1,000 ML IV ONE (14:45)
[2017-07-26] MEDS ORDERED: Folic Acid IV* 50 MG/10 ML VIAL ONE (14:45)
[2017-07-26] MEDS ORDERED: Thiamine IV* 100 MG/ML 2 ML VIAL ONE (14:52)
[2017-07-26 14:56] LABS: ABS Basophils 0.1 10^3/ul (0-0.2); ABS Eosinophils 0 10^3/ul (0-0.6); ABS Lymphocytes 0.5 10^3/ul (1.0-4.8); ABS Monocytes 0.4 10^3/ul (0-0.8); ABS Neutrophils 6.4 10^3/ul (1.5-7.7); ABS Nucleated RBC 0 10^3/ul; Eosinophil % 0.1 % (0-6); Hematocrit 39 % (42-52); Hemoglobin 12.9 g/dl (14.0-18.0); Lymphocyte % 7.2 % (25-47); Mean Corpuscular HGB Conc 33 g/dl (31-36); Mean Corpuscular Hemoglobin 34 pg (27-31); Mean Corpuscular Volume 101 fL (80-94); Mean Platelet Volume 6.7 um3 (7.4-10.4); Nucleated Red Blood Cells % 0.1; Platelet Count 213 10^3/ul (150-450); Red Blood Count 3.81 10^6/ul (4.0-5.4); Red Cell Distribution Width 18 % (10.5-15); White Blood Count 7.5 10^3/ul (3.5-10.8)
[2017-07-26 15:14] LABS: EGFR Non-African American 66.7 (>60)
[2017-07-26] MEDS ORDERED: Ondansetron INJ* 2 MG/ML VIAL IV PRN (15:50)
[2017-07-26] MEDS ORDERED: Magnesium Sulf 4 GM/100 ML IV* 4,000 MG/100 ML BAG IVPB ONE (16:36)
[2017-07-26] MEDS: LORazepam TAB(*) 1 MG PO SCH ×3 (18:05→22:22)
[2017-07-26] MEDS: Pantoprazole IV* 40 MG IV SCH (18:05)
--- NOTE | 2017-07-26 18:53 | ED ---
Arun Oliveira Stephanie, scribed for Gregg Rey MD on 07/26/17 at 1432 . GI/ HPI - HPI Summary HPI Summary: The pt is a 56 y/o M BIBA to the ED with c/o N/V that began on 07/22/17. Symptoms include dehydration, fever, loose stools, coffee ground emesis, tremors and weakness. The pt states he last ate 4 days ago. He reports hx of reflux. The pt is a daily drinker. He states he usually drinks 3-4 drinks of vodka a day. His last ETOH drink was on 07/24/17. - History of Current Complaint Time Seen by Provider: 07/26/17 14:18 Stated Complaint: N/V Hx Obtained From: Patient Onset/Duration: Started Days Ago - 4, Still Present Timing: Intermittent Current Severity: Moderate Pain Intensity: 0 Associated Signs and Symptoms: Positive: Hematemesis, Weakness, Nausea, Vomiting , Fever, Other: - loose stool, dehydration, tremors Aggravating Factor(s): Nothing Alleviating Factor(s): Nothing - Additional Pertinent History Primary Care Physician: DENICE - Allergy/Home Medications Allergies/Adverse Reactions: Allergies Allergy/AdvReac Type Severity Reaction Status Date / Time Penicillins Allergy Rash Verified 07/26/17 14:17 Home Medications: Home Medications NK [No Home Medications Reported] 07/26/17 [History Confirmed 07/26/17] PMH/Surg Hx/FS Hx/Imm Hx Endocrine/Hematology History: Denies: Hx Anticoagulant Therapy, Hx Diabetes, Hx Thyroid Disease Cardiovascular History: Reports: Hx Hypertension, Other Cardiovascular Problems/ Disorders - recent elevated bps Denies: Hx Pacemaker/ICD Respiratory History: Reports: Hx Lung Cancer, Other Respiratory Problems/ Disorders - s/p right pneumonectomy (Jan 2008) Denies: Hx Asthma, Hx Chronic Obstructive Pulmonary Disease (COPD) GI History: Reports: Hx Gastroesophageal Reflux Disease, Other GI Disorders - GERD History: Reports: Hx Acute Renal Failure - current elevated due to dehydration, Other Problems/Disorders - hx of renal issues s/p chemo tx Denies: Hx Renal Disease Musculoskeletal History: Denies: Hx Rheumatoid Arthritis, Hx Osteoporosis Sensory History: Reports: Hx Contacts or Glasses - reading Denies: Hx Hearing Aid Opthamlomology History: Reports: Hx Contacts or Glasses - reading Neurological History: Denies: Hx Dementia, Hx Seizures Psychiatric History: Reports: Hx Substance Abuse - ETOH - Cancer History Cancer Type, Location and Year: lung cancer 2007 Hx Chemotherapy: Yes - Surgical History Surgery Procedure, Year, and Place: RT. PNEUMONECTOMY, APPENDECTOMY Hx Anesthesia Reactions: No Infectious Disease History: No Infectious Disease History: Denies: Hx Hepatitis, Hx Human Immunodeficiency Virus (HIV), Traveled Outside the [place] in Last 30 Days - Family History Known Family History: Negative: Other - NEG: cirrhosis - Social History Occupation: Employed Full-time Lives: Dormitory/Roommates Alcohol Use: Daily Alcohol Amount: 2 martinies nightly Hx Substance Use: No Substance Use Type: Reports: None Hx Tobacco Use: No Smoking Status (MU): Former Smoker Have You Smoked in the Last Year: No Review of Systems Positive: Fever, Other - dehydration. Negative: Chills Negative: Erythema Negative: Sore Throat Negative: Chest Pain Negative: Shortness Of Breath, Cough Positive: Vomiting - "coffee ground" emesis, Nausea, Other - loose stools. Negative: Abdominal Pain Negative: dysuria, hematuria Negative: Myalgia, Edema Skin: Negative - Dizziness Negative: Rash Neurological: Other - tremors Positive: Weakness All Other Systems Reviewed And Are Negative: Yes Physical Exam - Summary Physical Exam Summary: Constitutional: Well-developed, Well-nourished, Alert. (-) Distressed Skin: Warm, Dry HENT: Normocephalic; Atraumatic Eyes: Conjunctiva normal Neck: Musculoskeletal ROM normal neck. (-) JVD, (-) Stridor, (-) Tracheal deviation Cardio: Rhythm regular, tachycardic, Heart sounds normal; Intact distal pulses; The pedal pulses are 2+ and symmetric. Radial pulses are 2+ and symmetric. (-) Murmur Pulmonary/Chest wall: Effort normal. (-) Respiratory distress, (-) Wheezes, (-) Rales Abd: Soft, (-), epigastric tenderness, (-) Distension, (-) Guarding, (-) Rebound Musculoskeletal: (-) Edema Lymph: (-) Cervical adenopathy Neuro: Alert, Oriented x3, tremulous Psych: Mood and affect Normal Triage Information Reviewed: Yes Vital Signs On Initial Exam: Initial Vitals Temp Pulse Resp BP Pulse Ox 98.9 F 123 14 158/117 98 07/26/17 14:17 07/26/17 14:17 07/26/17 14:17 07/26/17 14:17 07/26/17 14:17 Vital Signs Reviewed: Yes Diagnostics - Vital Signs Vital Signs Temp Pulse Resp BP Pulse Ox 07/26/17 14:17 98.9 F 123 14 158/117 98 - Laboratory Result Diagrams: 07/26/17 14:50 07/26/17 14:50 Lab Statement: Any lab studies that have been ordered have been reviewed, and results considered in the medical decision making process. - EKG 14:30 Cardiac Rate: Tachycardia EKG Rhythm: Sinus Tachycardia - 122 BPM EKG Interpretation: no STEMI GIGU Course/Dx - Course Course Of Treatment: No hx of seizures. The pt is responding to ativan. - Diagnoses Provider Diagnoses: Alcohol withdrawal, Alcoholic ketoacidosis - Physician Notifications Discussed Care Of Patient With: Harvinder Moreno - Suggests Dr. Gao admit the pt. Time Discussed With Above Provider: 15:29 Instructed by Provider To: Admit As Inpatient - Critical Care Time Critical Care Time: 30-74 min - 45 min Discharge - Sign-Out/Discharge Documenting (check all that apply): Discharge/Admit/Transfer - Admit - Discharge Plan Condition: Stable Disposition: ADMITTED TO [facility] The documentation as recorded by the Arun chahal Stephanie accurately reflects the service I personally performed and the decisions made by , Gregg Rey MD.
[2017-07-26 19:10] LABS: Urine Appearance Clear; Urine Blood 2+ (Negative); Urine Color Yellow; Urine Ketones 1+ (Negative); Urine Protein 3+(>=500 mg/dL) (Negative); Urine Red Blood Cell Trace(0-2/hpf) (Absent); Urine Specific Gravity 1.018 (1.010-1.030); Urine Urobilinogen Negative (Negative); Urine White Blood Cell Absent (Absent)
[2017-07-26] MEDS: NS 0.9% 1000 ML* 1,000 ML IV SCH (22:04)
[2017-07-26] MEDS: hydrALAZINE IV* 20 MG/ML VIAL IV SLOW PU PRN (22:22)
[2017-07-26] MEDS: Acetaminophen TAB* 325 MG PO PRN (22:56)
--- NOTE | 2017-07-26 23:23 | HP ---
CC: Dr. Harinder Duncan * HISTORY AND PHYSICAL: DATE OF ADMISSION: 07/26/17 PRIMARY CARE PROVIDER: Dr. Harinder Duncan. ATTENDING PHYSICIAN: Dr. Frankie Gao * (dictated by Lali Glass NP) . CHIEF COMPLAINT: Nausea and vomiting for 4 days. HISTORY OF PRESENT ILLNESS: Mr. Rojas is a 56-year-old male with past medical history significant for right lung carcinoma, status post right pneumonectomy; alcohol abuse; hypertension; gout; GERD with esophagitis; chronic kidney disease, stage 2 to 3 and history of tobacco abuse, who states that approximately 4 days ago around 07/22/17 he developed nausea, vomiting and diarrhea. He denies any contacts with other people with similar symptoms. He states that he last had alcohol 2 days ago. He states that he may or may not have drink more than his usual amount of alcohol for the 4-6 days prior. The patient also states he has not had any food in 4 days due to his nausea and vomiting. He denies any fevers. He reports chills. Denies chest pain. He reports an occasional cough with mucus production over the last few days. He also reports shortness of breath increased above his baseline over the last few days, especially with exertion. He states the diarrhea resolved a few days ago , but now he is having loose stools. He denies any abdominal pain. He denies urinary symptoms, lightheadedness. He reports dizziness for 4 days. He also reports acid reflux for 4 days. He also reports an episode of coffee-ground emesis earlier today. The patient was last hospitalized in April 2017, at which time he presented with complaints of chest pain. He was discharged from that admission on aspirin and amlodipine that he had chose to not take after discharge. Additionally, the patient had an admission back in October of 2016 , at which time he came in with alcohol withdrawal symptoms and complaints of coffee-ground emesis. At that time, he underwent an EGD showing severe esophagitis, hiatal hernia, probable gastropathy secondary to alcohol. It was recommended he take a PPI for 8 weeks and to have a repeat EGD in 2 to 3 months. It is unclear if the patient actually had a followup EGD. Due to his symptoms, he presented to the emergency room for further evaluation of his symptoms. While in the emergency room, the patient was noted to be hypertensive. I suspect it to be secondary to his alcohol withdrawal. He was also tachycardia. I also believe this is secondary to his alcohol withdrawal. He had labs showing stable anemia with a hemoglobin of 12.9, hematocrit of 39, elevated AST and ALT. He had an EKG showing a sinus tachycardia. Serum alcohol level of 24. He was started on a banana bag. He received Ativan and Reglan. The hospitalists were asked to evaluate the patient for admission. PAST MEDICAL HISTORY: 1. Right lung cancer. 2. Alcohol abuse. 3. Hypertension. 4. Gout. 5. GERD with esophagitis. 6. Chronic kidney disease, stage 2 to 3. PAST SURGICAL HISTORY: 1. Status post appendectomy. 2. Status post right pneumonectomy. 3. Status post tonsillectomy. HOME MEDICATIONS: None. ALLERGIES: PENICILLIN. FAMILY HISTORY: The patient's father had a history of coronary artery disease and colon cancer. The patient's mother had a history of diabetes mellitus. He had a grandfather with a history of diabetes mellitus. The patient's mother had a history of head and neck cancer and a sister with a history of breast cancer. SOCIAL HISTORY: He is a former smoker, quitting approximately 11 years ago; prior to that, he had a 20-pack year history. He reports drinking 3 to 4 one to one and half ounce vodkas every evening. He reports his last drink was on 07/24/17. He denies recreational drugs. His friend, Karime Ibarra, will be his surrogate decision maker in the event he is unable to make decisions for himself. REVIEW OF SYSTEMS: I performed an 11-point review of systems. All the pertinent positives and negatives are mentioned in the history of present illness. The remaining review of systems are negative. PHYSICAL EXAMINATION GENERAL APPEARANCE: The patient is alert, pleasant and appears to be in no acute distress. VITAL SIGNS: Temperature 98.9, heart rate 123, respiratory rate 14, O2 sat 98% on room air, blood pressure 158/117. HEENT: Normocephalic, atraumatic. Pupils are equal and reactive to light. Extraocular movements are intact. RESPIRATORY: There is no accessory muscle use. The lungs are clear to auscultation bilaterally. CARDIOVASCULAR: Regular rate and rhythm, tachycardic. S1, S2 present. There are no murmurs, rubs, or gallops heard. ABDOMEN: Soft, nontender, nondistended. There are bowel sounds present x4. EXTREMITIES: There is no lower extremity edema. DP and PT pulses are 2+ and symmetric. MUSCULOSKELETAL: There is no clubbing or cyanosis noted. The patient exhibits good strength in all extremities. NEUROLOGICAL: The patient is alert and oriented x4. Cranial nerves II through XII are grossly intact. PSYCHOLOGICAL: The patient is calm and cooperative. SKIN: There are no rashes or abnormalities seen. DIAGNOSTIC STUDIES/LABORATORY DATA: Sodium 141, potassium 4.6, chloride 99, CO2 of 23, BUN 19, creatinine 1.13, glucose 113. White blood cell count 7.9, hemoglobin 12.9, hematocrit 39, platelet count 213. Alk phos 157, AST 91, ALT 61. Alcohol 24. EKG shows a sinus tachycardia, rate of 122. There are no acute signs of ischemia. This EKG is similar to previous from 05/18/17. IMPRESSION: Mr. Rojas is a 56-year-old male with past medical history significant for right lung cancer, status post pneumonectomy; alcohol abuse; hypertension; gout; gastroesophageal reflux disease with esophagitis; chronic kidney disease, stage 2 to 3, who presents to the emergency room with complaints of 4 days of nausea, vomiting, diarrhea that is resolved, and coffee- ground emesis x1. He will be admitted as an inpatient for alcohol withdrawal. ASSESSMENT/PLAN: 1. Alcohol withdrawal. The patient will be placed on a WAM protocol. He is receiving a banana bag in the emergency room. After the banana bag, I will continue him on IV fluids. He will be continued on thiamine and folic acid. I will start with p.o. Ativan. If he is unable to keep p.o. down, we will change the Ativan to IV. In the setting of alcohol abuse, I will add a magnesium level to the ED labs and replace if needed. 2. Coffee-ground emesis. The patient reports 1 episode of coffee-ground emesis. He last had an EGD in October of 2016 showing esophagitis. At that time, he was placed on 8 weeks of omeprazole. For now, I am going to place him on IV Protonix. If he has any further episodes of coffee-ground emesis, we will ask GI to consult. 3. Hypertension. The patient is hypertensive in the emergency room. I suspect this is secondary to his alcohol withdrawal. He does have a history of hypertension and does not take medications at home. For now, I am going to place him on p.r.n. hydralazine. I suspect he will need to be started on an antihypertensive. 4. Anemia. The patient's hemoglobin and hematocrit are at baseline. 5. Obesity, BMI 31. 6. Chronic kidney disease, stage 2 to 3. His creatinine is at baseline. 7. Elevated transaminitis. Suspect this is secondary to the patient's alcohol abuse. They could be elevated in the setting of dehydration and we will recheck his labs in the morning after he has received IV fluids overnight. If they continue to be elevated, he should have a liver ultrasound to eval for underlying liver disease. 8. Fluids, electrolytes and nutrition: Clear liquid diet. 9. Code status: Full code. 10. DVT prophylaxis: Moderate risk. The patient will have SCDs. We will not give him chemical DVT prophylaxis in the setting of a possible GI bleed. 11. Disposition: Inpatient. TIME SPENT: Time spent for this admission was approximately 60 minutes, greater than half of that was spent with the patient discussing medications, past medical history, the events leading up to his arrival today, and performing a physical examination. The case has been reviewed with the attending, Dr. Gao, who agrees with the plan of care. Reviewed by GENNY ACUNA 07/27/17 1404 [id number]/[facility] #: [id number] ROGE
[2017-07-27] MEDS: LORazepam TAB(*) 1 MG PO SCH ×11 (00:22→22:36)
[2017-07-27] MEDS: Acetaminophen TAB* 325 MG PO PRN (04:20)
[2017-07-27 06:03] LABS: ABS Basophils 0 10^3/ul (0-0.2); ABS Eosinophils 0 10^3/ul (0-0.6); ABS Lymphocytes 0.4 10^3/ul (1.0-4.8); ABS Monocytes 0.4 10^3/ul (0-0.8); ABS Neutrophils 4.7 10^3/ul (1.5-7.7); ABS Nucleated RBC 0 10^3/ul; Eosinophil % 0.1 % (0-6); Hematocrit 34 % (42-52); Hemoglobin 11.5 g/dl (14.0-18.0); Lymphocyte % 7.5 % (25-47); Mean Corpuscular HGB Conc 34 g/dl (31-36); Mean Corpuscular Hemoglobin 34 pg (27-31); Mean Corpuscular Volume 101 fL (80-94); Mean Platelet Volume 7.2 um3 (7.4-10.4); Nucleated Red Blood Cells % 0.1; Platelet Count 161 10^3/ul (150-450); Red Blood Count 3.36 10^6/ul (4.0-5.4); Red Cell Distribution Width 18 % (10.5-15); White Blood Count 5.5 10^3/ul (3.5-10.8)
[2017-07-27 06:22] LABS: EGFR Non-African American 95.2 (>60)
[2017-07-27] MEDS ORDERED: Magnesium Sulfate 2 GM IV* 2 GM/50 ML BAG IVPB ONE (08:10)
[2017-07-27] MEDS: Multivitamins/Minerals TAB PO SCH (08:32)
[2017-07-27] MEDS: Folic Acid TAB* 1 MG PO SCH (08:32)
[2017-07-27] MEDS: Thiamine TAB* 100 MG TAB PO SCH (08:33)
[2017-07-27] MEDS: Pantoprazole IV* 40 MG IV SCH (08:33)
[2017-07-27] MEDS: NS 0.9% 1000 ML* 1,000 ML IV SCH ×2 (08:34→20:38)
--- NOTE | 2017-07-27 15:26 | PN ---
Subjective Date of Service: 07/27/17 Interval History: no complaints of chest pain or shortness of breath, continue to score on WAM. Denies abd pain n/v/d. denies fever or chills. Family History: Unchanged from Admission Social History: Unchanged from Admission Past Medical History: Unchanged from Admission Objective Active Medications: Acetaminophen (Tylenol Tab*) 650 mg PO Q6H PRN PRN Reason: FEVER/PAIN Last Admin: 07/27/17 04:20 Dose: 650 mg Folic Acid (Folvite Tab*) 1 mg PO DAILY [facility] Last Admin: 07/27/17 08:32 Dose: 1 mg Hydralazine HCl (Apresoline Iv*) 5 mg IV SLOW PU Q6H PRN PRN Reason: BLOOD PRESSURE Last Admin: 07/26/17 22:22 Dose: 5 mg Sodium Chloride (Ns 0.9% 1000 Ml*) 1,000 mls @ 100 mls/hr IV PER RATE [facility] Last Admin: 07/27/17 08:34 Dose: 100 mls/hr Lorazepam (Ativan Tab(*)) 0 - 6 mg PO .PER [facility] PROTOCOL [facility] PRN Reason: Protocol Last Admin: 07/27/17 14:16 Dose: 2 mg Multivitamins/Minerals (Theragran/Minerals Tab*) 1 tab PO DAILY [facility] Last Admin: 07/27/17 08:32 Dose: 1 tab Ondansetron HCl (Zofran Inj*) 4 mg IV Q6H PRN PRN Reason: NAUSEA Pantoprazole Sodium (Protonix Iv*) 40 mg IV DAILY [facility] Last Admin: 07/27/17 08:33 Dose: 40 mg Thiamine HCl (Vitamin B-1 Tab*) 100 mg PO DAILY [facility] Last Admin: 07/27/17 08:33 Dose: 100 mg Vital Signs - 8 hr 07/27/17 07/27/17 07/27/17 07:58 08:13 08:31 Temperature 98.9 F Pulse Rate 112 Respiratory 24 20 20 Rate Blood Pressure 176/109 (mmHg) O2 Sat by Pulse 100 Oximetry 07/27/17 07/27/17 07/27/17 08:52 09:48 10:11 Temperature 98.0 F Pulse Rate 117 Respiratory 20 25 24 Rate Blood Pressure 116/82 (mmHg) O2 Sat by Pulse 100 Oximetry 07/27/17 07/27/17 07/27/17 10:15 11:04 11:54 Temperature 98.7 F Pulse Rate 110 Respiratory 24 22 22 Rate Blood Pressure 159/107 (mmHg) O2 Sat by Pulse 100 Oximetry 07/27/17 07/27/17 07/27/17 12:22 13:58 14:16 Temperature 98.5 F Pulse Rate 114 Respiratory 20 25 22 Rate Blood Pressure 136/88 (mmHg) O2 Sat by Pulse 100 Oximetry Oxygen Devices in Use Now: None Appearance: appears fatigued, alert and oreinted x 3, no acute distress, mild hand tremors noted Eyes: No Scleral Icterus Ears/Nose/Mouth/Throat: Clear Oropharnyx, Mucous Membranes Moist Neck: NL Appearance and Movements; NL JVP, Trachea Midline Respiratory: Symmetrical Chest Expansion and Respiratory Effort, Clear to Auscultation Cardiovascular: NL Sounds; No Murmurs; No JVD, No Edema Abdominal: NL Sounds; No Tenderness; No Distention Extremities: No Edema, No Clubbing, Cyanosis Skin: No Rash or Ulcers Neurological: Alert and Oriented x 3 Nutrition: Taking PO's Result Diagrams: 07/27/17 05:36 07/28/17 06:15 Assess/Plan/Problems-Billing Assessment: Mr. Rojas is a 56 y.o male admitted with ETOH abuse, Lung CA, HTN, Gout, GERD and CKD that presented to the ER for evaluation of ETOH withdrawal and coffee ground emesis. - Patient Problems (1) Alcohol withdrawal Current Visit: Yes Status: Acute Code(s): F10.239 - ALCOHOL DEPENDENCE WITH WITHDRAWAL, UNSPECIFIED SNOMED Code(s): 702513413 Comment: - will continue with WAM assessments -scoring between 5-14 on WAM - will continue to treat with ativan as needed (2) Coffee ground emesis Current Visit: Yes Status: Acute Code(s): K92.0 - HEMATEMESIS SNOMED Code( s): 083134220 Comment: - no vomiting - will continue to monior - continue PPI with protonix- will change to PO tomorrow if continue with no symptoms (3) CKD (chronic kidney disease) stage 3, GFR 30-59 ml/min Current Visit: No Status: Acute Code(s): N18.3 - CHRONIC KIDNEY DISEASE, STAGE 3 (MODERATE) SNOMED Code(s): 402708724 Comment: - With acute dehydration - continue IV hydration (4) GERD (gastroesophageal reflux disease) Current Visit: No Status: Acute Code(s): K21.9 - GASTRO-ESOPHAGEAL REFLUX DISEASE WITHOUT ESOPHAGITIS SNOMED Code(s): 312094206 Comment: - Continue PPI (5) HTN (hypertension) Current Visit: No Status: Acute Code(s): I10 - ESSENTIAL (PRIMARY) HYPERTENSION SNOMED Code(s): 88440944 Comment: - continue PRN hydralizine - will consider PO BP medications if BP remains uncontrolled (6) DVT prophylaxis Current Visit: No Status: Acute Code(s): RIU5696 - SNOMED Code(s): 622476843 Comment: SCDs - patient has reported coffee ground emesis prior to admission Status and Disposition: inpatient
[2017-07-28] MEDS: LORazepam TAB(*) 1 MG PO SCH ×10 (00:21→22:33)
[2017-07-28] MEDS: Ondansetron ODT TAB* 4 MG SL PRN (00:44)
[2017-07-28] MEDS: Acetaminophen TAB* 325 MG PO PRN ×2 (03:02→12:33)
[2017-07-28 07:14] LABS: EGFR Non-African American 76.7 (>60)
[2017-07-28] MEDS ORDERED: Magnesium Sulfate IV* 3 GM in NS 0.9% 100 ML* 100 ML IVPB ONE (07:18)
[2017-07-28] MEDS ORDERED: Magnesium Sulfate 2 GM IV IVPB ONE (08:00)
[2017-07-28] MEDS ORDERED: Magnesium Sulfate 1 GM IV* 1 GM/100 ML BAG IV ONE (09:00)
[2017-07-28] MEDS ORDERED: Potassium Chlor TAB* 20 MEQ TAB.ER PO ONE (09:50)
[2017-07-28] MEDS: Magnesium Oxide TAB* 400 MG PO SCH ×2 (10:27→20:32)
[2017-07-28] MEDS: Folic Acid TAB* 1 MG PO SCH (10:27)
[2017-07-28] MEDS: Pantoprazole IV* 40 MG IV SCH (10:27)
[2017-07-28] MEDS: Thiamine TAB* 100 MG TAB PO SCH (10:27)
[2017-07-28] MEDS: Multivitamins/Minerals TAB PO SCH (10:28)
[2017-07-28] MEDS ORDERED: LORazepam TAB(*) 1 MG PO PRN (14:13)
[2017-07-28] MEDS: NS 0.9% 1000 ML* 1,000 ML IV SCH ×2 (14:19→20:32)
--- NOTE | 2017-07-28 17:41 | PN ---
Subjective Date of Service: 07/28/17 Interval History: awake to verbal, denies chest pain or shortness of breath. Denies abd pain. n /v/d. denies fever or chills. reports fine tremors. patient with confusion during the night - 1 on 1 at the bedside scoring 13-16 on WA Family History: Unchanged from Admission Social History: Unchanged from Admission Past Medical History: Unchanged from Admission Objective Active Medications: Acetaminophen (Tylenol Tab*) 650 mg PO Q6H PRN PRN Reason: FEVER/PAIN Last Admin: 07/28/17 12:33 Dose: 650 mg Folic Acid (Folvite Tab*) 1 mg PO DAILY [facility] Last Admin: 07/28/17 10:27 Dose: 1 mg Hydralazine HCl (Apresoline Iv*) 5 mg IV SLOW PU Q6H PRN PRN Reason: BLOOD PRESSURE Last Admin: 07/26/17 22:22 Dose: 5 mg Sodium Chloride (Ns 0.9% 1000 Ml*) 1,000 mls @ 100 mls/hr IV PER RATE [facility] Last Admin: 07/28/17 14:19 Dose: 100 mls/hr Lorazepam (Ativan Tab(*)) 0 - 6 mg PO .PER [facility] PROTOCOL [facility] PRN Reason: Protocol Last Admin: 07/28/17 14:19 Dose: 2 mg Lorazepam (Ativan Tab(*)) 1 mg PO Q8H PRN PRN Reason: ANXIETY Magnesium Oxide (Magox 400 Tab*) 400 mg PO BID [facility] Last Admin: 07/28/17 10:27 Dose: 400 mg Multivitamins/Minerals (Theragran/Minerals Tab*) 1 tab PO DAILY [facility] Last Admin: 07/28/17 10:28 Dose: 1 tab Ondansetron HCl (Zofran Odt Tab*) 4 mg SL Q6H PRN PRN Reason: NAUSEA/VOMITING Last Admin: 07/28/17 00:44 Dose: 4 mg Pantoprazole Sodium (Protonix Iv*) 40 mg IV DAILY [facility] Last Admin: 07/28/17 10:27 Dose: 40 mg Thiamine HCl (Vitamin B-1 Tab*) 100 mg PO DAILY [facility] Last Admin: 07/28/17 10:27 Dose: 100 mg Vital Signs - 8 hr 07/28/17 07/28/17 07/28/17 09:58 10:22 10:30 Temperature 97.7 F Pulse Rate 105 Respiratory 32 32 32 Rate Blood Pressure 152/96 (mmHg) O2 Sat by Pulse 99 Oximetry 07/28/17 07/28/17 07/28/17 12:13 12:34 14:07 Temperature 97.4 F 97.8 F Pulse Rate 104 102 Respiratory 32 32 32 Rate Blood Pressure 158/109 140/86 (mmHg) O2 Sat by Pulse 100 100 Oximetry 07/28/17 07/28/17 07/28/17 14:12 14:19 16:02 Temperature 98.6 F Pulse Rate 104 Respiratory 32 32 20 Rate Blood Pressure 165/100 (mmHg) O2 Sat by Pulse 100 Oximetry Oxygen Devices in Use Now: None Appearance: appears mildly confused ,but able to reorient. fine hand tremors. Eyes: No Scleral Icterus Ears/Nose/Mouth/Throat: Clear Oropharnyx, Mucous Membranes Moist Neck: NL Appearance and Movements; NL JVP, Trachea Midline Respiratory: Symmetrical Chest Expansion and Respiratory Effort, Clear to Auscultation Cardiovascular: NL Sounds; No Murmurs; No JVD, No Edema Abdominal: NL Sounds; No Tenderness; No Distention Extremities: No Edema, No Clubbing, Cyanosis Skin: No Rash or Ulcers Neurological: Alert and Oriented x 3, - - bilat hand with fine tremors Nutrition: Taking PO's Result Diagrams: 07/27/17 05:36 07/28/17 06:15 Assess/Plan/Problems-Billing Assessment: Mr. Rojas is a 56 y.o male admitted with ETOH abuse, Lung CA, HTN, Gout, GERD and CKD that presented to the ER for evaluation of ETOH withdrawal and coffee ground emesis. - Patient Problems (1) Alcohol withdrawal Current Visit: Yes Status: Acute Code(s): F10.239 - ALCOHOL DEPENDENCE WITH WITHDRAWAL, UNSPECIFIED SNOMED Code(s): 543929891 Comment: - will continue with WA assessments -scoring between 13-16 on WAM - will continue to treat with ativan as needed per [facility] protocol - will add routine dose of Ativan 1 mg Q 8 hours , will hold for sedation (2) Coffee ground emesis Current Visit: Yes Status: Acute Code(s): K92.0 - HEMATEMESIS SNOMED Code( s): 991709256 Comment: - no vomiting - will continue to monitor - changed PPI to omeprazole 20 mg po daily (3) CKD (chronic kidney disease) stage 3, GFR 30-59 ml/min Current Visit: No Status: Acute Code(s): N18.3 - CHRONIC KIDNEY DISEASE, STAGE 3 (MODERATE) SNOMED Code(s): 289910371 Comment: - will continue to monitor BMP bun and creatintine WNL at this time - will continue IVF for hydration as PO intake is poor (4) GERD (gastroesophageal reflux disease) Current Visit: No Status: Acute Code(s): K21.9 - GASTRO-ESOPHAGEAL REFLUX DISEASE WITHOUT ESOPHAGITIS SNOMED Code(s): 871814886 Comment: - Continue PPI (5) HTN (hypertension) Current Visit: No Status: Acute Code(s): I10 - ESSENTIAL (PRIMARY) HYPERTENSION SNOMED Code(s): 96898975 Comment: - continue PRN hydralizine - will consider PO BP medications if BP remains uncontrolled (6) Hypomagnesemia Current Visit: No Status: Acute Code(s): E83.42 - HYPOMAGNESEMIA SNOMED Code(s): 187030717 Comment: - Acute on chronic - will give 3 grams of magnesium today and add magnesium oxide 400 mg BID - repeat Magnesium in the AM (7) DVT prophylaxis Current Visit: No Status: Acute Code(s): JOA0775 - SNOMED Code(s): 494061315 Comment: SCDs - patient has reported coffee ground emesis prior to admission Status and Disposition: inpatient
[2017-07-28 17:51] LABS: ABS Basophils 0.1 10^3/ul (0-0.2); ABS Eosinophils 0.1 10^3/ul (0-0.6); ABS Lymphocytes 0.7 10^3/ul (1.0-4.8); ABS Monocytes 0.5 10^3/ul (0-0.8); ABS Neutrophils 5.1 10^3/ul (1.5-7.7); ABS Nucleated RBC 0 10^3/ul; Hematocrit 33 % (42-52); Hemoglobin 11.1 g/dl (14.0-18.0); Lymphocyte % 10.9 % (25-47); Mean Corpuscular HGB Conc 33 g/dl (31-36); Mean Corpuscular Hemoglobin 34 pg (27-31); Mean Corpuscular Volume 101 fL (80-94); Mean Platelet Volume 7.3 um3 (7.4-10.4); Nucleated Red Blood Cells % 0; Platelet Count 144 10^3/ul (150-450); Red Blood Count 3.29 10^6/ul (4.0-5.4); Red Cell Distribution Width 18 % (10.5-15); White Blood Count 6.4 10^3/ul (3.5-10.8)
[2017-07-29] MEDS: Acetaminophen TAB* 325 MG PO PRN ×2 (00:14→21:36)
[2017-07-29] MEDS: LORazepam TAB(*) 1 MG PO SCH ×5 (00:16→22:46)
[2017-07-29 06:23] LABS: ABS Basophils 0 10^3/ul (0-0.2); ABS Eosinophils 0.1 10^3/ul (0-0.6); ABS Lymphocytes 0.7 10^3/ul (1.0-4.8); ABS Monocytes 0.5 10^3/ul (0-0.8); ABS Nucleated RBC 0 10^3/ul; Eosinophil % 1.4 % (0-6); Hematocrit 30 % (42-52); Lymphocyte % 13.9 % (25-47); Mean Corpuscular HGB Conc 34 g/dl (31-36); Mean Corpuscular Hemoglobin 34 pg (27-31); Mean Corpuscular Volume 101 fL (80-94); Mean Platelet Volume 7.4 um3 (7.4-10.4); Nucleated Red Blood Cells % 0; Platelet Count 134 10^3/ul (150-450); Red Blood Count 2.93 10^6/ul (4.0-5.4); Red Cell Distribution Width 18 % (10.5-15); White Blood Count 5.3 10^3/ul (3.5-10.8)
[2017-07-29] MEDS: Omeprazole CAP* 20 MG PO SCH (07:20)
[2017-07-29] MEDS: Folic Acid TAB* 1 MG PO SCH (09:03)
[2017-07-29] MEDS: Thiamine TAB* 100 MG TAB PO SCH (09:03)
[2017-07-29] MEDS: Multivitamins/Minerals TAB PO SCH (09:03)
[2017-07-29] MEDS: Magnesium Oxide TAB* 400 MG PO SCH ×2 (09:03→21:36)
--- NOTE | 2017-07-29 18:26 | PN ---
Subjective Date of Service: 07/29/17 Interval History: reports that tremors are improved today. Denies chest pain or shortness of breath. Denies abd pain , n/v/d. denies visual or auditory hallucinations. Family History: Unchanged from Admission Social History: Unchanged from Admission Past Medical History: Unchanged from Admission Objective Active Medications: Acetaminophen (Tylenol Tab*) 650 mg PO Q6H PRN PRN Reason: FEVER/PAIN Last Admin: 07/29/17 00:14 Dose: 650 mg Folic Acid (Folvite Tab*) 1 mg PO DAILY [facility] Last Admin: 07/29/17 09:03 Dose: 1 mg Hydralazine HCl (Apresoline Iv*) 5 mg IV SLOW PU Q6H PRN PRN Reason: BLOOD PRESSURE Last Admin: 07/26/17 22:22 Dose: 5 mg Lorazepam (Ativan Tab(*)) 0 - 6 mg PO .PER [facility] PROTOCOL [facility] PRN Reason: Protocol Last Admin: 07/29/17 02:25 Dose: 2 mg Lorazepam (Ativan Tab(*)) 1 mg PO Q8H PRN PRN Reason: ANXIETY Magnesium Oxide (Magox 400 Tab*) 400 mg PO BID [facility] Last Admin: 07/29/17 09:03 Dose: 400 mg Multivitamins/Minerals (Theragran/Minerals Tab*) 1 tab PO DAILY [facility] Last Admin: 07/29/17 09:03 Dose: 1 tab Omeprazole (Prilosec Cap*) 20 mg PO 0600 [facility] Last Admin: 07/29/17 07:20 Dose: Not Given Ondansetron HCl (Zofran Odt Tab*) 4 mg SL Q6H PRN PRN Reason: NAUSEA/VOMITING Last Admin: 07/28/17 00:44 Dose: 4 mg Thiamine HCl (Vitamin B-1 Tab*) 100 mg PO DAILY [facility] Last Admin: 07/29/17 09:03 Dose: 100 mg Vital Signs - 8 hr 07/29/17 07/29/17 07/29/17 11:58 14:07 15:38 Temperature 98.5 F 99.1 F 99.9 F Pulse Rate 93 104 100 Respiratory 25 26 24 Rate Blood Pressure 152/92 152/84 166/100 (mmHg) O2 Sat by Pulse 100 100 99 Oximetry Oxygen Devices in Use Now: None Appearance: appears comfortable resting in bed, no acute distress, contines with fine hand tremors improved from yesterday Eyes: No Scleral Icterus Ears/Nose/Mouth/Throat: Clear Oropharnyx, Mucous Membranes Moist Neck: NL Appearance and Movements; NL JVP, Trachea Midline Respiratory: Symmetrical Chest Expansion and Respiratory Effort, Clear to Auscultation Cardiovascular: NL Sounds; No Murmurs; No JVD, No Edema Abdominal: NL Sounds; No Tenderness; No Distention Extremities: No Edema, No Clubbing, Cyanosis Skin: No Rash or Ulcers Neurological: Alert and Oriented x 3 Nutrition: Taking PO's Result Diagrams: 07/29/17 06:03 07/29/17 06:03 Assess/Plan/Problems-Billing Assessment: Mr. Rojas is a 56 y.o male admitted with ETOH abuse, Lung CA, HTN, Gout, GERD and CKD that presented to the ER for evaluation of ETOH withdrawal and coffee ground emesis. - Patient Problems (1) Alcohol withdrawal Current Visit: Yes Status: Acute Code(s): F10.239 - ALCOHOL DEPENDENCE WITH WITHDRAWAL, UNSPECIFIED SNOMED Code(s): 888289411 Comment: - will continue with WAM assessments -scoring between 1-8 on WAM - will continue to treat with ativan as needed per [facility] protocol - will continue routine dose of Ativan 1 mg Q 8 hours , will hold for sedation - will decrease po dosing starting in the AM to 0.5 mg Q 8 hours (2) Coffee ground emesis Current Visit: Yes Status: Acute Code(s): K92.0 - HEMATEMESIS SNOMED Code( s): 839822187 Comment: - no vomiting - will continue to monitor - changed PPI to omeprazole 20 mg po daily (3) CKD (chronic kidney disease) stage 3, GFR 30-59 ml/min Current Visit: No Status: Acute Code(s): N18.3 - CHRONIC KIDNEY DISEASE, STAGE 3 (MODERATE) SNOMED Code(s): 079384753 Comment: - will continue to monitor BMP bun and creatintine WNL at this time (4) GERD (gastroesophageal reflux disease) Current Visit: No Status: Acute Code(s): K21.9 - GASTRO-ESOPHAGEAL REFLUX DISEASE WITHOUT ESOPHAGITIS SNOMED Code(s): 581219055 Comment: - Continue PPI (5) HTN (hypertension) Current Visit: No Status: Acute Code(s): I10 - ESSENTIAL (PRIMARY) HYPERTENSION SNOMED Code(s): 28129574 Comment: - continue PRN hydralizine - BP improved overnight - will continue to monitor (6) Hypomagnesemia Current Visit: No Status: Acute Code(s): E83.42 - HYPOMAGNESEMIA SNOMED Code(s): 579408439 Comment: - Acute on chronic - Magnesium 1.7 today - will give 2 grams of magnesium today and add magnesium oxide 400 mg BID - repeat Magnesium in the AM (7) DVT prophylaxis Current Visit: No Status: Acute Code(s): RPL4444 - SNOMED Code(s): 538356735 Comment: SCDs - patient has reported coffee ground emesis prior to admission Status and Disposition: inpatient
[2017-07-29] MEDS ORDERED: Magnesium Sulfate 2 GM IV* 2 GM/50 ML BAG IVPB ONE (18:29)
[2017-07-29] MEDS ORDERED: Potassium Chlor TAB* 20 MEQ TAB.ER PO ONE (18:29)
[2017-07-29] MEDS ORDERED: LORazepam TAB(*) 0.5 MG PO PRN (18:45)
[2017-07-29] MEDS: hydrALAZINE IV* 20 MG/ML VIAL IV SLOW PU PRN (21:34)
[2017-07-30] MEDS: hydrALAZINE IV* 20 MG/ML VIAL IV SLOW PU PRN (06:18)
[2017-07-30] MEDS: LORazepam TAB(*) 1 MG PO SCH ×3 (06:20→12:13)
[2017-07-30] MEDS: Omeprazole CAP* 20 MG PO SCH (06:21)
[2017-07-30 06:39] LABS: Hematocrit 32 % (42-52); Hemoglobin 10.7 g/dl (14.0-18.0); Mean Corpuscular HGB Conc 34 g/dl (31-36); Mean Corpuscular Hemoglobin 34 pg (27-31); Mean Corpuscular Volume 101 fL (80-94); Mean Platelet Volume 7.4 um3 (7.4-10.4); Platelet Count 183 10^3/ul (150-450); Red Blood Count 3.15 10^6/ul (4.00-5.40); Red Cell Distribution Width 18 % (10.5-15); White Blood Count 5.1 10^3/ul (3.5-10.8)
[2017-07-30 06:51] LABS: EGFR Non-African American 77.6 (>60)
[2017-07-30] MEDS: Magnesium Oxide TAB* 400 MG PO SCH ×2 (07:37→23:42)
[2017-07-30] MEDS: Folic Acid TAB* 1 MG PO SCH (07:37)
[2017-07-30] MEDS: Multivitamins/Minerals TAB PO SCH (07:37)
[2017-07-30] MEDS: Thiamine TAB* 100 MG TAB PO SCH (07:37)
[2017-07-30] MEDS: Magnesium Hydroxide LIQ* 30 ML UDC PO PRN ×2 (09:53→14:06)
[2017-07-30] MEDS ORDERED: cloNIDine TAB* 0.1 MG PO ONE (10:19)
[2017-07-30] MEDS: Acetaminophen TAB* 325 MG PO PRN (12:14)
--- NOTE | 2017-07-30 13:28 | RAD ---
HISTORY: shortness of breath COMPARISONS: May 16, 2017 VIEWS: 1: frontal portable view of the chest at 12:53 PM FINDINGS: LINES AND TUBES: None. CARDIOMEDIASTINAL SILHOUETTE: The cardiomediastinal silhouette is deviated to the right. PLEURA: There is right pleural thickening. LUNG PARENCHYMA: The patient appears to be status post right pneumonectomy. There is hyperexpansion of the left lung. ABDOMEN: The upper abdomen is clear. There is no subphrenic gas. BONES AND SOFT TISSUES: No bone or soft tissue abnormalities are noted. IMPRESSION: STATUS POST RIGHT PNEUMONECTOMY. NO ACTIVE CARDIOPULMONARY DISEASE.
[2017-07-30] MEDS: LORazepam TAB(*) 0.5 MG PO SCH ×2 (14:06→23:42)
[2017-07-30] MEDS ORDERED: Magnesium Sulfate 1 GM IV* 1 GM/100 ML BAG IV ONE (18:52)
--- NOTE | 2017-07-30 19:45 | PN ---
Subjective Date of Service: 07/30/17 Interval History: C/o shortness of breath and left wrist pain. Continues to score on WAM. Denies chest pain or shortness of breath. Denies abd pain n/v/d. Family History: Unchanged from Admission Social History: Unchanged from Admission Past Medical History: Unchanged from Admission Objective Active Medications: Acetaminophen (Tylenol Tab*) 650 mg PO Q6H PRN PRN Reason: FEVER/PAIN Last Admin: 07/30/17 12:14 Dose: 650 mg Clonidine HCl (Nljuwhue-Nrh-9 0.1 Mg Patch*) 0.1 mg TRANSDERM Q7D [facility] Folic Acid (Folvite Tab*) 1 mg PO DAILY [facility] Last Admin: 07/30/17 07:37 Dose: 1 mg Hydralazine HCl (Apresoline Iv*) 5 mg IV SLOW PU Q6H PRN PRN Reason: BLOOD PRESSURE Last Admin: 07/30/17 06:18 Dose: 5 mg Lorazepam (Ativan Tab(*)) 0 - 6 mg PO .PER [facility] PROTOCOL [facility] PRN Reason: Protocol Last Admin: 07/30/17 12:13 Dose: 2 mg Lorazepam (Ativan Tab(*)) 0.5 mg PO Q8H [facility] Last Admin: 07/30/17 14:06 Dose: 0.5 mg Magnesium Hydroxide (Milk Of Magnesia Liq*) 30 ml PO Q4H PRN PRN Reason: CONSTIPATION Last Admin: 07/30/17 14:06 Dose: 30 ml Magnesium Oxide (Magox 400 Tab*) 400 mg PO BID [facility] Last Admin: 07/30/17 07:37 Dose: 400 mg Multivitamins/Minerals (Theragran/Minerals Tab*) 1 tab PO DAILY [facility] Last Admin: 07/30/17 07:37 Dose: 1 tab Nystatin (Nystatin Top Powder*) 1 applic TOPICAL BID [facility] Omeprazole (Prilosec Cap*) 20 mg PO 0600 [facility] Last Admin: 07/30/17 06:21 Dose: 20 mg Ondansetron HCl (Zofran Odt Tab*) 4 mg SL Q6H PRN PRN Reason: NAUSEA/VOMITING Last Admin: 07/28/17 00:44 Dose: 4 mg Thiamine HCl (Vitamin B-1 Tab*) 100 mg PO DAILY [facility] Last Admin: 07/30/17 07:37 Dose: 100 mg Vital Signs - 8 hr 07/30/17 07/30/17 07/30/17 12:03 12:13 13:33 Temperature 98.1 F Pulse Rate 112 Respiratory 25 16 16 Rate Blood Pressure 158/95 (mmHg) O2 Sat by Pulse 100 Oximetry 07/30/17 07/30/17 07/30/17 13:57 13:59 14:06 Temperature 98.0 F Pulse Rate 117 Respiratory 25 20 22 Rate Blood Pressure 153/78 (mmHg) O2 Sat by Pulse 100 100 Oximetry 07/30/17 07/30/17 07/30/17 15:05 15:47 17:56 Temperature 98.6 F 98.8 F Pulse Rate 94 101 Respiratory 20 26 24 Rate Blood Pressure 134/89 164/99 (mmHg) O2 Sat by Pulse 99 99 Oximetry Oxygen Devices in Use Now: None Appearance: awake to verbal, more alert today, appears mildly short of breath Eyes: No Scleral Icterus Ears/Nose/Mouth/Throat: Clear Oropharnyx, Mucous Membranes Moist Neck: NL Appearance and Movements; NL JVP, Trachea Midline Respiratory: Symmetrical Chest Expansion and Respiratory Effort, Clear to Auscultation Cardiovascular: NL Sounds; No Murmurs; No JVD, RRR, No Edema - diminished on the left Abdominal: NL Sounds; No Tenderness; No Distention Extremities: No Edema, No Clubbing, Cyanosis Skin: No Rash or Ulcers, No Nodules or Sclerosis Neurological: Alert and Oriented x 3 Nutrition: Taking PO's Result Diagrams: 07/30/17 06:14 07/30/17 06:14 Assess/Plan/Problems-Billing Assessment: Mr. Rojas is a 56 y.o male admitted with ETOH abuse, Lung CA, HTN, Gout, GERD and CKD that presented to the ER for evaluation of ETOH withdrawal and coffee ground emesis. - Patient Problems (1) Alcohol withdrawal Current Visit: Yes Status: Acute Code(s): F10.239 - ALCOHOL DEPENDENCE WITH WITHDRAWAL, UNSPECIFIED SNOMED Code(s): 474390783 Comment: - will continue with WAM assessments -scoring between 3-9 on WAM - will continue to treat with ativan as needed per [facility] protocol - will decrease po dosing starting in the AM to 0.5 mg Q 8 hours -will hold for sedation (2) Coffee ground emesis Current Visit: Yes Status: Acute Code(s): K92.0 - HEMATEMESIS SNOMED Code( s): 107721863 Comment: - no vomiting - will continue to monitor - PPI to omeprazole 20 mg po daily - H/ H stable (3) CKD (chronic kidney disease) stage 3, GFR 30-59 ml/min Current Visit: No Status: Acute Code(s): N18.3 - CHRONIC KIDNEY DISEASE, STAGE 3 (MODERATE) SNOMED Code(s): 219937544 Comment: - will continue to monitor BMP bun and creatintine WNL at this time (4) GERD (gastroesophageal reflux disease) Current Visit: No Status: Acute Code(s): K21.9 - GASTRO-ESOPHAGEAL REFLUX DISEASE WITHOUT ESOPHAGITIS SNOMED Code(s): 297016657 Comment: - Continue PPI (5) HTN (hypertension) Current Visit: No Status: Acute Code(s): I10 - ESSENTIAL (PRIMARY) HYPERTENSION SNOMED Code(s): 14924421 Comment: - continue PRN hydralizine - remains hypertensive- gave clonidine 0.1 po x1 today and started a clonidine patch at 0.1mg - as clonidine can also assist in relieving withdrawal symptoms (6) Hypomagnesemia Current Visit: No Status: Acute Code(s): E83.42 - HYPOMAGNESEMIA SNOMED Code(s): 841878905 Comment: - Acute on chronic - Magnesium 1.7 today - will give 1 grams of magnesium today and add magnesium oxide 400 mg BID (7) DVT prophylaxis Current Visit: No Status: Acute Code(s): IKJ7936 - SNOMED Code(s): 623938227 Comment: SCDs - patient has reported coffee ground emesis prior to admission Status and Disposition: inpatient
[2017-07-30] MEDS ORDERED: cloNIDine 0.1 MG PATCH* 0.1 MG/24 HR 7 DAY PATCH TRANSDERM SCH (20:00)
[2017-07-30] MEDS: Nystatin TOP POWDER* 15 GM BTL TOPICAL SCH (23:41)
[2017-07-31] MEDS: hydrALAZINE IV* 20 MG/ML VIAL IV SLOW PU PRN (00:08)
[2017-07-31] MEDS: LORazepam TAB(*) 0.5 MG PO SCH ×3 (05:45→21:19)
[2017-07-31] MEDS: Omeprazole CAP* 20 MG PO SCH (05:46)
[2017-07-31] MEDS: Multivitamins/Minerals TAB PO SCH (08:21)
[2017-07-31] MEDS: Folic Acid TAB* 1 MG PO SCH (08:21)
[2017-07-31] MEDS: Magnesium Oxide TAB* 400 MG PO SCH ×2 (08:21→20:39)
[2017-07-31] MEDS: Thiamine TAB* 100 MG TAB PO SCH (08:21)
[2017-07-31] MEDS: Nystatin TOP POWDER* 15 GM BTL TOPICAL SCH ×2 (08:23→20:39)
[2017-07-31] MEDS ORDERED: Albuterol/Ipratropium NEB.SOL* Albuterol 2.5 MG/Ipratropium 0.5 MG 3 ML INH PRN (09:54)
[2017-07-31] MEDS: Acetaminophen TAB* 325 MG PO PRN (13:03)
[2017-07-31] MEDS: LORazepam TAB(*) 1 MG PO SCH ×4 (14:05→22:07)
--- NOTE | 2017-07-31 14:55 | RAD ---
INDICATION: Fever and cough COMPARISON: July 30, 2017 TECHNIQUE: An AP portable view obtained at 1422 hours is submitted. FINDINGS: Bones/Soft Tissues: There are no acute bony findings. Cardiomediastinal: The cardiac silhouette cannot be evaluated due to right pneumonectomy. Lungs: The left lung is clear. There is opacification of the right hemithorax compatible with pneumonectomy. Pleura: There are no pleural effusions. Other: None IMPRESSION: RIGHT PNEUMONECTOMY. NO INTERVAL CHANGES.
--- NOTE | 2017-07-31 16:23 | PN ---
Subjective Date of Service: 07/31/17 Interval History: Did not require ativan overnight, but has required some today based on [facility] protocol. He thinks he is feeling better. He has no complaints, denies headache, anxiety, hallucinations. Family History: Unchanged from Admission Social History: Unchanged from Admission Past Medical History: Unchanged from Admission Objective Active Medications: Acetaminophen (Tylenol Tab*) 650 mg PO Q6H PRN PRN Reason: FEVER/PAIN Last Admin: 07/31/17 13:03 Dose: 650 mg Albuterol/Ipratropium (Duoneb (Albuterol 2.5 Mg/Ipratropium 0.5 Mg)) 1 neb INH Q4H PRN PRN Reason: SOB/WHEEZING Clonidine HCl (Gsmeykzf-Xjz-9 0.1 Mg Patch*) 0.1 mg TRANSDERM Q7D [facility] Last Admin: 07/30/17 20:09 Dose: 0.1 mg Folic Acid (Folvite Tab*) 1 mg PO DAILY [facility] Last Admin: 07/31/17 08:21 Dose: 1 mg Hydralazine HCl (Apresoline Iv*) 5 mg IV SLOW PU Q6H PRN PRN Reason: BLOOD PRESSURE Last Admin: 07/31/17 00:08 Dose: 5 mg Lorazepam (Ativan Tab(*)) 0 - 6 mg PO .PER [facility] PROTOCOL [facility] PRN Reason: Protocol Last Admin: 07/31/17 16:11 Dose: 2 mg Lorazepam (Ativan Tab(*)) 0.5 mg PO Q8H [facility] Last Admin: 07/31/17 13:05 Dose: 0.5 mg Magnesium Hydroxide (Milk Of Magnesia Liq*) 30 ml PO Q4H PRN PRN Reason: CONSTIPATION Last Admin: 07/30/17 14:06 Dose: 30 ml Magnesium Oxide (Magox 400 Tab*) 400 mg PO BID [facility] Last Admin: 07/31/17 08:21 Dose: 400 mg Multivitamins/Minerals (Theragran/Minerals Tab*) 1 tab PO DAILY [facility] Last Admin: 07/31/17 08:21 Dose: 1 tab Nystatin (Nystatin Top Powder*) 1 applic TOPICAL BID [facility] Last Admin: 07/31/17 08:23 Dose: 1 applic Omeprazole (Prilosec Cap*) 20 mg PO 0600 [facility] Last Admin: 07/31/17 05:46 Dose: 20 mg Ondansetron HCl (Zofran Odt Tab*) 4 mg SL Q6H PRN PRN Reason: NAUSEA/VOMITING Last Admin: 07/28/17 00:44 Dose: 4 mg Thiamine HCl (Vitamin B-1 Tab*) 100 mg PO DAILY [facility] Last Admin: 07/31/17 08:21 Dose: 100 mg Vital Signs - 8 hr 07/31/17 07/31/17 07/31/17 08:21 08:29 09:51 Temperature 98.6 F Pulse Rate 110 Respiratory 24 24 27 Rate Blood Pressure 136/84 (mmHg) O2 Sat by Pulse 100 Oximetry 07/31/17 07/31/17 07/31/17 10:20 12:01 12:23 Temperature 100.7 F Pulse Rate 110 109 103 Respiratory 29 28 27 Rate Blood Pressure 156/98 (mmHg) O2 Sat by Pulse 96 99 96 Oximetry 07/31/17 07/31/17 07/31/17 13:05 13:53 14:05 Temperature 100.5 F Pulse Rate 124 Respiratory 28 29 28 Rate Blood Pressure 135/78 (mmHg) O2 Sat by Pulse 100 Oximetry 07/31/17 07/31/17 16:07 16:11 Temperature 99.2 F Pulse Rate 103 Respiratory 28 28 Rate Blood Pressure 144/80 (mmHg) O2 Sat by Pulse 99 Oximetry Oxygen Devices in Use Now: None Appearance: alert, calm, comfortable Eyes: No Scleral Icterus Ears/Nose/Mouth/Throat: NL Teeth, Lips, Gums Neck: NL Appearance and Movements; NL JVP Respiratory: - - decreased breath sounds right lung Cardiovascular: NL Sounds; No Murmurs; No JVD Abdominal: NL Sounds; No Tenderness; No Distention Lymphatic: No Cervical Adenopathy Extremities: No Edema Skin: No Rash or Ulcers Neurological: - - no hallucinations, no tremor Result Diagrams: 07/30/17 06:14 07/30/17 06:14 Assess/Plan/Problems-Billing Assessment: 56 y.o male with history ETOH abuse, Lung CA s/p lobectomy, HTN, Gout, GERD and CKD that presented to the ED with ETOH withdrawal - Patient Problems (1) Alcohol withdrawal Current Visit: Yes Status: Acute Code(s): F10.239 - ALCOHOL DEPENDENCE WITH WITHDRAWAL, UNSPECIFIED SNOMED Code(s): 960530209 Comment: still requiring ativan per [facility] protocol but need is decreasing (2) GERD (gastroesophageal reflux disease) Current Visit: No Status: Acute Code(s): K21.9 - GASTRO-ESOPHAGEAL REFLUX DISEASE WITHOUT ESOPHAGITIS SNOMED Code(s): 478474919 Comment: - Continue PPI (3) Hypomagnesemia Current Visit: No Status: Acute Code(s): E83.42 - HYPOMAGNESEMIA SNOMED Code(s): 034318862 Comment: recheck mag tomorrow Status and Disposition: inpatient
[2017-07-31] MEDS: NS 0.9% 1000 ML* 1,000 ML IV SCH ×2 (16:54→19:14)
[2017-07-31 17:25] LABS: Urine Appearance Clear; Urine Blood Negative (Negative); Urine Color Straw; Urine Ketones Negative (Negative); Urine Protein Negative (Negative); Urine Specific Gravity 1.003 (1.010-1.030); Urine Urobilinogen Negative (Negative)
[2017-07-31] MEDS: Magnesium Hydroxide LIQ* 30 ML UDC PO PRN (20:39)
[2017-07-31] MEDS ORDERED: Albuterol 2.5 MG/3 ML NEB.SOL* (0.083%) INH PRN (22:25)
[2017-07-31] MEDS ORDERED: LORazepam INJ* 2 MG/ML 1 ML VIAL IV PUSH ONE (22:25)
[2017-07-31] MEDS ORDERED: Furosemide IV* 10 MG/ML VIAL (40 MG) IV SLOW PU ONE (22:25)
[2017-07-31] MEDS ORDERED: Furosemide IV* 10 MG/ML VIAL (40 MG) ONE (22:28)
[2017-07-31] MEDS ORDERED: LORazepam INJ* 2 MG/ML 1 ML VIAL ONE (22:28)
[2017-07-31] MEDS ORDERED: Albuterol/Ipratropium NEB.SOL* Albuterol 2.5 MG/Ipratropium 0.5 MG 3 ML INH SCH (23:00)
[2017-08-01 00:03] LABS: ABS Basophils 0.1 10^3/ul (0-0.2); ABS Eosinophils 0.1 10^3/ul (0-0.6); ABS Monocytes 1.4 10^3/ul (0-0.8); ABS Neutrophils 4.9 10^3/ul (1.5-7.7); ABS Nucleated RBC 0 10^3/ul; Eosinophil % 0.7 % (0-6); Hematocrit 34 % (42-52); Hemoglobin 11.3 g/dl (14.0-18.0); Mean Corpuscular HGB Conc 34 g/dl (31-36); Mean Corpuscular Hemoglobin 34 pg (27-31); Mean Corpuscular Volume 100 fL (80-94); Mean Platelet Volume 7.4 um3 (7.4-10.4); Nucleated Red Blood Cells % 0.1; Platelet Count 280 10^3/ul (150-450); Red Blood Count 3.34 10^6/ul (4.00-5.40); Red Cell Distribution Width 18 % (10.5-15); White Blood Count 7.4 10^3/ul (3.5-10.8)
[2017-08-01 00:26] LABS: EGFR Non-African American 69.5 (>60)
[2017-08-01] MEDS: LORazepam TAB(*) 1 MG PO SCH ×11 (00:40→23:27)
--- NOTE | 2017-08-01 00:44 | PN ---
Hospitalist Progress Note Date of Service: 08/01/17 called to bedside for resp rate 40's. On exam patient states he doens feel sob. however note mod amount of distress using accessory muscle, and wheezing noted, along with rale throughout, giving neb now, tx to icu for vapotherm, cxr , checking cta, given tachycardia, will repeat labs now as well and cx due torecent fever, giving 1 mg ativan now as well,
[2017-08-01] MEDS ORDERED: Iohexol 350* (CONTRAST) 500 ML MDV IV ONE (02:25)
[2017-08-01] MEDS ORDERED: Albuterol/Ipratropium NEB.SOL* Albuterol 2.5 MG/Ipratropium 0.5 MG 3 ML INH PRN (02:42)
[2017-08-01 05:32] LABS: Hematocrit 34 % (42-52); Hemoglobin 11.3 g/dl (14.0-18.0); Mean Corpuscular HGB Conc 34 g/dl (31-36); Mean Corpuscular Hemoglobin 34 pg (27-31); Mean Corpuscular Volume 100 fL (80-94); Mean Platelet Volume 7.7 um3 (7.4-10.4); Platelet Count 300 10^3/ul (150-450); Red Blood Count 3.36 10^6/ul (4.00-5.40); Red Cell Distribution Width 18 % (10.5-15); White Blood Count 7.6 10^3/ul (3.5-10.8)
[2017-08-01 05:45] LABS: EGFR Non-African American 65.3 (>60)
[2017-08-01] MEDS: Omeprazole CAP* 20 MG PO SCH (06:16)
[2017-08-01] MEDS: LORazepam TAB(*) 0.5 MG PO SCH ×2 (06:17→14:29)
--- NOTE | 2017-08-01 07:35 | RAD ---
INDICATION: Shortness of breath in a patient status post pneumonectomy. COMPARISON: Chest x-ray July 31, 2017 acquired at 1421 hours TECHNIQUE: Single AP portable view of the chest was obtained at 2244 hours. FINDINGS: Image quality is compromised due to the relative inferiority of a portable chest x-ray. Most of the right lung is opacified. Surgical clips are seen overlying the right hilum. There is left to right mediastinal shift similar appearance the previous chest x-ray. The left lung is adequately aerated. Visualized bones are normal for the patient's age. IMPRESSION: Compatible with the patient's reported history of pneumonectomy, most of the right lung is opacified and there is left to right mediastinal shift. The left lung is adequately aerated.
--- NOTE | 2017-08-01 07:45 | RAD ---
HISTORY: Shortness of breath, lung cancer, status post pneumonectomy COMPARISONS: CT of the chest dated September 21, 2016 TECHNIQUE: Multiple contiguous axial CT scans of the chest were obtained after the administration of nonionic intravenous contrast, timed to the pulmonary arterial phase of contrast enhancement.. Coronal and sagittal multiplanar reformations are also submitted for review. FINDINGS: NECK AND THYROID: The lower neck and thyroid are unremarkable. CHEST WALL: There is no lower cervical, axillary, or supraclavicular lymphadenopathy by size criteria. HEART AND PERICARDIUM: The heart is unremarkable. AORTA AND PULMONARY VASCULATURE: There is no pulmonary arterial filling defect to suggest pulmonary embolism. There is no linear filling defect within the aorta to suggest aortic dissection. MEDIASTINUM: There is no mediastinal lymphadenopathy by size criteria. Mediastinum is shifted to the right secondary to pneumonectomy of the right lung. LOBITO: There is no hilar lymphadenopathy by size criteria. AIRWAY AND ESOPHAGUS: The airway is unremarkable, without endobronchial filling defect. The esophagus is grossly normal. LUNG PARENCHYMA: The patient is status post right pneumonectomy. The left lung is clear. PLEURA: No pleural abnormalities are noted. UPPER ABDOMEN: There is fatty infiltration of the liver. Gallstones are noted. BONES AND SOFT TISSUES: No bone or soft tissue abnormalities are noted. OTHER: None. IMPRESSION: 1. NO PULMONARY ARTERIAL FILLING DEFECT TO SUGGEST PULMONARY EMBOLISM. 2. STATUS POST RIGHT PNEUMONECTOMY. 3. FATTY INFILTRATION OF THE LIVER. 4. CHOLELITHIASIS.
--- NOTE | 2017-08-01 08:15 | PN ---
Subjective Date of Service: 08/01/17 Interval History: Transferred to the ICU overnight for tachypnea. No documented hypoxia. On vapotherm. When I enter the room the vapotherm is off and his o2 sat is 96%. He has no complaints. Family History: Unchanged from Admission Social History: Unchanged from Admission Past Medical History: Unchanged from Admission Objective Active Medications: Acetaminophen (Tylenol Tab*) 650 mg PO Q6H PRN PRN Reason: FEVER/PAIN Last Admin: 07/31/17 13:03 Dose: 650 mg Albuterol (Ventolin 2.5 Mg/3 Ml Neb.Dana*) 2.5 mg INH Q2H PRN PRN Reason: SOB/WHEEZING Albuterol/Ipratropium (Duoneb (Albuterol 2.5 Mg/Ipratropium 0.5 Mg)) 1 neb INH Q4H PRN PRN Reason: SOB/WHEEZING Clonidine HCl (Fuklaxfg-Yaz-8 0.1 Mg Patch*) 0.1 mg TRANSDERM Q7D [facility] Last Admin: 07/30/17 20:09 Dose: 0.1 mg Folic Acid (Folvite Tab*) 1 mg PO DAILY [facility] Last Admin: 07/31/17 08:21 Dose: 1 mg Hydralazine HCl (Apresoline Iv*) 5 mg IV SLOW PU Q6H PRN PRN Reason: BLOOD PRESSURE Last Admin: 07/31/17 00:08 Dose: 5 mg Lorazepam (Ativan Tab(*)) 0 - 6 mg PO .PER [facility] PROTOCOL [facility] PRN Reason: Protocol Last Admin: 08/01/17 06:16 Dose: 2 mg Lorazepam (Ativan Tab(*)) 0.5 mg PO Q8H [facility] Last Admin: 08/01/17 06:17 Dose: 0.5 mg Magnesium Hydroxide (Milk Of Magnesia Liq*) 30 ml PO Q4H PRN PRN Reason: CONSTIPATION Last Admin: 07/31/17 20:39 Dose: 30 ml Magnesium Oxide (Magox 400 Tab*) 400 mg PO BID [facility] Last Admin: 07/31/17 20:39 Dose: 400 mg Multivitamins/Minerals (Theragran/Minerals Tab*) 1 tab PO DAILY [facility] Last Admin: 07/31/17 08:21 Dose: 1 tab Nystatin (Nystatin Top Powder*) 1 applic TOPICAL BID [facility] Last Admin: 07/31/17 20:39 Dose: 1 applic Omeprazole (Prilosec Cap*) 20 mg PO 0600 [facility] Last Admin: 08/01/17 06:16 Dose: 20 mg Ondansetron HCl (Zofran Odt Tab*) 4 mg SL Q6H PRN PRN Reason: NAUSEA/VOMITING Last Admin: 07/28/17 00:44 Dose: 4 mg Thiamine HCl (Vitamin B-1 Tab*) 100 mg PO DAILY [facility] Last Admin: 07/31/17 08:21 Dose: 100 mg Vital Signs - 8 hr 08/01/17 08/01/17 08/01/17 00:40 01:00 01:01 Temperature Pulse Rate 113 116 Respiratory 24 19 22 Rate Blood Pressure 132/85 (mmHg) O2 Sat by Pulse 98 100 Oximetry 08/01/17 08/01/17 08/01/17 02:00 02:17 02:22 Temperature Pulse Rate 117 116 Respiratory 34 34 30 Rate Blood Pressure 149/96 (mmHg) O2 Sat by Pulse 99 99 Oximetry 08/01/17 08/01/17 08/01/17 03:00 03:04 03:10 Temperature Pulse Rate 115 117 Respiratory 38 26 24 Rate Blood Pressure 124/99 (mmHg) O2 Sat by Pulse 97 98 Oximetry 08/01/17 08/01/17 08/01/17 03:16 03:39 04:00 Temperature 99.4 F Pulse Rate 118 Respiratory 21 27 Rate Blood Pressure (mmHg) O2 Sat by Pulse 97 Oximetry 08/01/17 08/01/17 08/01/17 04:01 04:25 05:00 Temperature Pulse Rate 116 119 Respiratory 25 22 33 Rate Blood Pressure 146/97 127/94 (mmHg) O2 Sat by Pulse 96 97 Oximetry 08/01/17 08/01/17 08/01/17 06:00 06:16 06:17 Temperature Pulse Rate 117 Respiratory 38 25 24 Rate Blood Pressure 97/76 (mmHg) O2 Sat by Pulse 97 Oximetry 08/01/17 08:00 Temperature Pulse Rate Respiratory 24 Rate Blood Pressure (mmHg) O2 Sat by Pulse Oximetry Oxygen Devices in Use Now: High Flow Heated Nasal Cannula Appearance: alert, comfortable, disoriented Eyes: No Scleral Icterus Ears/Nose/Mouth/Throat: NL Teeth, Lips, Gums Neck: NL Appearance and Movements; NL JVP Respiratory: Symmetrical Chest Expansion and Respiratory Effort, Clear to Auscultation Cardiovascular: NL Sounds; No Murmurs; No JVD, RRR Abdominal: NL Sounds; No Tenderness; No Distention Lymphatic: No Cervical Adenopathy Extremities: No Edema Skin: No Rash or Ulcers Neurological: - - oriented to person only Result Diagrams: 08/01/17 05:05 08/01/17 05:05 Microbiology and Other Data: Microbiology 08/01/17 00:00 Nasal Screen MRSA (PCR)([facility]) - Final Nasal Mrsa Not Detected Assess/Plan/Problems-Billing Assessment: 56 y.o male with history ETOH abuse, Lung CA s/p lobectomy, HTN, Gout, GERD and CKD that presented to the ED with ETOH withdrawal. transferred to ICU overnight for tachypnea - Patient Problems (1) Tachypnea Current Visit: Yes Status: Acute Code(s): R06.82 - TACHYPNEA, NOT ELSEWHERE CLASSIFIED SNOMED Code(s): 286431954 Comment: transferred to ICU overnight for RR in the 40s. CTA shows no PE, no pulmonary edema. I suspect this may have been related to anxiety and withdrawal having found no hypoxia, and with a normal CTA, no leukocytosis. also may be related to bronchospasm, as he seems to have improved drastically after nebulizers. transfer back to floor when vapotherm off (2) Alcohol withdrawal Current Visit: Yes Status: Acute Code(s): F10.239 - ALCOHOL DEPENDENCE WITH WITHDRAWAL, UNSPECIFIED SNOMED Code(s): 724690717 Comment: still requiring ativan per [facility] protocol but need is decreasing (3) GERD (gastroesophageal reflux disease) Current Visit: No Status: Acute Code(s): K21.9 - GASTRO-ESOPHAGEAL REFLUX DISEASE WITHOUT ESOPHAGITIS SNOMED Code(s): 098156647 Comment: Continue PPI (4) Hypomagnesemia Current Visit: No Status: Acute Code(s): E83.42 - HYPOMAGNESEMIA SNOMED Code(s): 206770784 Comment: likely related to [facility] etoh abuse replete now Status and Disposition: remains delirious, inpatient
[2017-08-01] MEDS: Multivitamins/Minerals TAB PO SCH (08:48)
[2017-08-01] MEDS: Folic Acid TAB* 1 MG PO SCH (08:48)
[2017-08-01] MEDS: Thiamine TAB* 100 MG TAB PO SCH (08:48)
[2017-08-01] MEDS: Magnesium Oxide TAB* 400 MG PO SCH ×4 (08:48→20:24)
[2017-08-01] MEDS: Nystatin TOP POWDER* 15 GM BTL TOPICAL SCH ×2 (11:36→20:48)
[2017-08-01] MEDS: Acetaminophen TAB* 325 MG PO PRN (14:28)
[2017-08-01] MEDS: Polyethylene Glycol 3350* 17 GM PACKET PO PRN (14:30)
--- NOTE | 2017-08-01 15:14 | PN ---
Hospitalist Progress Note Date of Service: 08/01/17 re-evaluated this afternoon for ongoing delirium, tachycardia, and weakness. no nystagmus, no focal weakness, but was unable to transfer from [facility] wheelchair to the bed without assistance he gives nonsensible responses to simple questions but has no complaints - switch thiamine to higher dose, IV - CT head - check ammonia - increase ativan taper dose
--- NOTE | 2017-08-01 15:21 | PN ---
Hospitalist Progress Note Date of Service: 08/01/17 I updated Mr. Rojas's girlfriend Karime. I explained my concern that he is not improving as quickly as I would expect for alcohol withdrawal, and she agreed that he is not himself when she has talked with him on the phone. He is more confused than usual. I informed her of the plan this afternoon. She appreciated the update and requests to be informed of any further findings or changes.
--- NOTE | 2017-08-01 15:55 | RAD ---
INDICATION: Encephalopathy COMPARISON: CT brain December 20, 2011 TECHNIQUE: Noncontrast axial source images were acquired from the skull base to the vertex. FINDINGS: Ventricles/sulci: There is cortical atrophy with compensatory dilatation of the CSF spaces. Brain parenchyma: There is no focal parenchymal finding, evidence of intracranial mass, or intracranial mass effect. Intracranial hemorrhage:None. Extra-axial spaces: There are no abnormal extra axial fluid collections or evidence of extra-axial mass. Calvarium: There is no calvarial fracture or other calvarial abnormality. Scalp: There is no evidence of scalp or extracalvarial soft tissue abnormality. Paranasal sinuses/mastoid: The paranasal sinuses and mastoid air cells are clear. Other: None. IMPRESSION: MILD CORTICAL ATROPHY. NO ACUTE INTRACRANIAL FINDINGS
[2017-08-01] MEDS ORDERED: Thiamine IV* 100 MG/ML 2 ML VIAL IV SCH (16:00)
[2017-08-01] MEDS: Thiamine IV* 100 MG in NS 0.9% 50 ML* 50 ML IV SCH (16:36)
[2017-08-01] MEDS: Magnesium Hydroxide LIQ* 30 ML UDC PO PRN (20:25)
[2017-08-02] MEDS: LORazepam TAB(*) 1 MG PO SCH ×2 (00:23→08:25)
[2017-08-02] MEDS: Omeprazole CAP* 20 MG PO SCH (05:32)
[2017-08-02 08:01] LABS: EGFR Non-African American 58.2 (>60)
[2017-08-02] MEDS: Ondansetron ODT TAB* 4 MG SL PRN (08:24)
[2017-08-02] MEDS: Magnesium Oxide TAB* 400 MG PO SCH ×2 (08:24→21:26)
[2017-08-02] MEDS: Multivitamins/Minerals TAB PO SCH (08:24)
[2017-08-02] MEDS: Folic Acid TAB* 1 MG PO SCH (08:24)
[2017-08-02] MEDS: Thiamine IV* 100 MG in NS 0.9% 50 ML* 50 ML IV SCH (08:25)
[2017-08-02] MEDS: Magnesium Hydroxide LIQ* 30 ML UDC PO PRN (08:25)
[2017-08-02] MEDS: Polyethylene Glycol 3350* 17 GM PACKET PO PRN (08:25)
[2017-08-02] MEDS: Nystatin TOP POWDER* 15 GM BTL TOPICAL SCH ×2 (10:01→21:29)
[2017-08-02] MEDS ORDERED: NS 0.9% 250 ML* 250 ML IV ONE ×2 (10:07→14:27)
[2017-08-02] MEDS ORDERED: LORazepam TAB(*) 1 MG PO SCH (10:07)
[2017-08-02] MEDS ORDERED: Magnesium Sulfate 2 GM IV* 2 GM/50 ML BAG IVPB ONE (10:09)
--- NOTE | 2017-08-02 10:23 | PN ---
Subjective Date of Service: 08/02/17 Interval History: Pt feels weak and "sleepy", denies pain or SOB Family History: Unchanged from Admission Social History: Unchanged from Admission Past Medical History: Unchanged from Admission Objective Active Medications: Acetaminophen (Tylenol Tab*) 650 mg PO Q6H PRN PRN Reason: FEVER/PAIN Last Admin: 08/01/17 14:28 Dose: 650 mg Albuterol (Ventolin 2.5 Mg/3 Ml Neb.Dana*) 2.5 mg INH Q2H PRN PRN Reason: SOB/WHEEZING Albuterol/Ipratropium (Duoneb (Albuterol 2.5 Mg/Ipratropium 0.5 Mg)) 1 neb INH Q4H PRN PRN Reason: SOB/WHEEZING Folic Acid (Folvite Tab*) 1 mg PO DAILY [facility] Last Admin: 08/02/17 08:24 Dose: 1 mg Hydralazine HCl (Apresoline Iv*) 5 mg IV SLOW PU Q6H PRN PRN Reason: BLOOD PRESSURE Last Admin: 07/31/17 00:08 Dose: 5 mg Thiamine HCl 100 mg/ Sodium (Chloride) 51 mls @ 204 mls/hr IV DAILY [facility] Stop: 08/04/17 16:00 Last Admin: 08/02/17 08:25 Dose: 204 mls/hr Sodium Chloride (Ns 0.9% 250 Ml*) 250 mls @ 0 mls/hr IV ONCE ONE PRN Reason: Wide Open Stop: 08/02/17 10:08 Magnesium Sulfate (Magnesium Sulfate 2 Gm Iv*) 2 gm in 50 mls @ 50 mls/hr IVPB ONCE ONE Stop: 08/02/17 11:08 Lorazepam (Ativan Tab(*)) 0 - 6 mg PO .PER [facility] PROTOCOL [facility] PRN Reason: Protocol Magnesium Hydroxide (Milk Of Magnesia Liq*) 30 ml PO Q4H PRN PRN Reason: CONSTIPATION Last Admin: 08/02/17 08:25 Dose: 30 ml Magnesium Oxide (Magox 400 Tab*) 800 mg PO BID [facility] Multivitamins/Minerals (Theragran/Minerals Tab*) 1 tab PO DAILY [facility] Last Admin: 08/02/17 08:24 Dose: 1 tab Nystatin (Nystatin Top Powder*) 1 applic TOPICAL BID [facility] Last Admin: 08/02/17 10:01 Dose: 1 applic Omeprazole (Prilosec Cap*) 20 mg PO 0600 [facility] Last Admin: 08/02/17 05:32 Dose: 20 mg Ondansetron HCl (Zofran Odt Tab*) 4 mg SL Q6H PRN PRN Reason: NAUSEA/VOMITING Last Admin: 08/02/17 08:24 Dose: 4 mg Polyethylene Glycol/Electrolytes (Miralax*) 17 gm PO DAILY PRN PRN Reason: CONSTIPATION Last Admin: 08/02/17 08:25 Dose: 17 gm Thiamine HCl (Vitamin B-1 Tab*) 100 mg PO 0900 [facility] Vital Signs - 8 hr 08/02/17 08/02/17 08/02/17 03:10 04:21 06:09 Temperature Pulse Rate 100 103 Respiratory 18 18 Rate Blood Pressure 148/89 103/57 (mmHg) O2 Sat by Pulse 99 99 Oximetry 08/02/17 08/02/17 07:57 08:00 Temperature 98.1 F Pulse Rate 102 Respiratory 23 23 Rate Blood Pressure 124/85 (mmHg) O2 Sat by Pulse 99 Oximetry Oxygen Devices in Use Now: None Appearance: 56 yo M in nAD, aAOx3 Eyes: No Scleral Icterus, PERRLA Ears/Nose/Mouth/Throat: NL Teeth, Lips, Gums, Mucous Membranes Moist Neck: NL Appearance and Movements; NL JVP, Trachea Midline Respiratory: Symmetrical Chest Expansion and Respiratory Effort Cardiovascular: NL Sounds; No Murmurs; No JVD, RRR Abdominal: - - mildly distended and tympanic, NT, BS+ Lymphatic: No Cervical Adenopathy Extremities: No Edema, No Clubbing, Cyanosis Skin: No Rash or Ulcers, No Nodules or Sclerosis Neurological: Alert and Oriented x 3, - - generalized weakness, b/l hand tremor L>R Result Diagrams: 08/01/17 05:05 08/02/17 07:22 Microbiology and Other Data: Microbiology 08/01/17 00:00 Nasal Screen MRSA (PCR)([facility]) - Final Nasal Mrsa Not Detected Assess/Plan/Problems-Billing Assessment: 56 y.o male with history ETOH abuse, Lung CA s/p lobectomy, HTN, Gout, GERD and CKD that presented to the ED with ETOH withdrawal. transferred to ICU overnight for tachypnea transferred out on 08/01/17 - Patient Problems (1) Alcohol withdrawal Comment: still requiring ativan per [place] protocol but will d/c scheduled Ativan taper and monitor (2) Coffee ground emesis Comment: reported by pt at admission - no vomiting - will continue to monitor - PPI to omeprazole 20 mg po daily - H/ H stable (3) Tachypnea Comment: transferred to ICU overnight for RR in the 40s on 07/31/17 CTA shows no PE, no pulmonary edema. This may have been related to anxiety and withdrawal having found no hypoxia, and with a normal CTA, no leukocytosis. also may have been related to bronchospasm, as he seems to have improved drastically after nebulizers. transferred back to floor, today on RA (4) CKD (chronic kidney disease) stage 3, GFR 30-59 ml/min Comment: creat slightly increased but still at baseline - will continue to monitor (5) GERD (gastroesophageal reflux disease) Comment: Continue PPI (6) HTN (hypertension) Comment: hypotensive this aM, will d/c clonidine patch (7) Hypomagnesemia Comment: likely related to long-term etoh abuse repleting IV and PO (8) DVT prophylaxis Comment: SCDs - patient has reported coffee ground emesis prior to admission Status and Disposition: inpatient
[2017-08-02] MEDS ORDERED: Magnesium CITRATE* 300 ML BTL PO ONE (12:30)
[2017-08-02 20:58] LABS: EGFR Non-African American 50.8 (>60)
[2017-08-03] MEDS: Omeprazole CAP* 20 MG PO SCH (06:20)
[2017-08-03 06:41] LABS: ABS Basophils 0.1 10^3/ul (0-0.2); ABS Eosinophils 0.1 10^3/ul (0-0.6); ABS Lymphocytes 1.1 10^3/ul (1.0-4.8); ABS Monocytes 0.8 10^3/ul (0-0.8); ABS Neutrophils 4.7 10^3/ul (1.5-7.7); ABS Nucleated RBC 0 10^3/ul; Eosinophil % 1.6 % (0-6); Hematocrit 29 % (42-52); Hemoglobin 9.7 g/dl (14.0-18.0); Lymphocyte % 16.2 % (25-47); Mean Corpuscular HGB Conc 34 g/dl (31-36); Mean Corpuscular Hemoglobin 34 pg (27-31); Mean Corpuscular Volume 100 fL (80-94); Mean Platelet Volume 8.1 um3 (7.4-10.4); Nucleated Red Blood Cells % 0.1; Platelet Count 442 10^3/ul (150-450); Red Blood Count 2.88 10^6/ul (4.00-5.40); Red Cell Distribution Width 18 % (10.5-15); White Blood Count 6.7 10^3/ul (3.5-10.8)
[2017-08-03 06:57] LABS: EGFR Non-African American 53.4 (>60)
[2017-08-03] MEDS: Polyethylene Glycol 3350* 17 GM PACKET PO PRN (08:49)
[2017-08-03] MEDS: Multivitamins/Minerals TAB PO SCH (08:49)
[2017-08-03] MEDS: Folic Acid TAB* 1 MG PO SCH (08:49)
[2017-08-03] MEDS: Magnesium Oxide TAB* 400 MG PO SCH ×2 (08:49→21:35)
[2017-08-03] MEDS: Nystatin TOP POWDER* 15 GM BTL TOPICAL SCH ×2 (08:50→21:36)
[2017-08-03] MEDS: Thiamine IV* 100 MG in NS 0.9% 50 ML* 50 ML IV SCH (08:50)
[2017-08-03] MEDS: Metoprolol Tartrate TAB* 25 MG PO SCH ×2 (10:43→21:35)
--- NOTE | 2017-08-03 10:46 | PN ---
Subjective Date of Service: 08/03/17 Interval History: Pt feels "less foggy" today. Had 2 BM's last night. Feels well, but "weak", needs help to ambulate Family History: Unchanged from Admission Social History: Unchanged from Admission Past Medical History: Unchanged from Admission Objective Active Medications: Acetaminophen (Tylenol Tab*) 650 mg PO Q6H PRN PRN Reason: FEVER/PAIN Last Admin: 08/01/17 14:28 Dose: 650 mg Albuterol (Ventolin 2.5 Mg/3 Ml Neb.Dana*) 2.5 mg INH Q2H PRN PRN Reason: SOB/WHEEZING Albuterol/Ipratropium (Duoneb (Albuterol 2.5 Mg/Ipratropium 0.5 Mg)) 1 neb INH Q4H PRN PRN Reason: SOB/WHEEZING Folic Acid (Folvite Tab*) 1 mg PO DAILY [facility] Last Admin: 08/03/17 08:49 Dose: 1 mg Hydralazine HCl (Apresoline Iv*) 5 mg IV SLOW PU Q6H PRN PRN Reason: BLOOD PRESSURE Last Admin: 07/31/17 00:08 Dose: 5 mg Thiamine HCl 100 mg/ Sodium (Chloride) 51 mls @ 204 mls/hr IV DAILY [facility] Stop: 08/04/17 16:00 Last Admin: 08/03/17 08:50 Dose: 204 mls/hr Lorazepam (Ativan Tab(*)) 0 - 6 mg PO .PER [facility] PROTOCOL [facility] PRN Reason: Protocol Magnesium Hydroxide (Milk Of Magnesia Liq*) 30 ml PO Q4H PRN PRN Reason: CONSTIPATION Last Admin: 08/02/17 08:25 Dose: 30 ml Magnesium Oxide (Magox 400 Tab*) 800 mg PO BID [facility] Last Admin: 08/03/17 08:49 Dose: 800 mg Metoprolol Tartrate (Lopressor Tab*) 25 mg PO BID [facility] Multivitamins/Minerals (Theragran/Minerals Tab*) 1 tab PO DAILY [facility] Last Admin: 08/03/17 08:49 Dose: 1 tab Nystatin (Nystatin Top Powder*) 1 applic TOPICAL BID [facility] Last Admin: 08/03/17 08:50 Dose: 1 applic Omeprazole (Prilosec Cap*) 20 mg PO 0600 [facility] Last Admin: 08/03/17 06:20 Dose: 20 mg Ondansetron HCl (Zofran Odt Tab*) 4 mg SL Q6H PRN PRN Reason: NAUSEA/VOMITING Last Admin: 08/02/17 08:24 Dose: 4 mg Polyethylene Glycol/Electrolytes (Miralax*) 17 gm PO DAILY PRN PRN Reason: CONSTIPATION Last Admin: 08/03/17 08:49 Dose: 17 gm Thiamine HCl (Vitamin B-1 Tab*) 100 mg PO 0900 [facility] Vital Signs - 8 hr 08/03/17 08/03/17 08/03/17 04:39 06:00 07:42 Temperature Pulse Rate 92 93 Respiratory 16 16 16 Rate Blood Pressure 129/61 147/82 (mmHg) O2 Sat by Pulse 97 100 Oximetry 08/03/17 08/03/17 08/03/17 07:51 09:52 10:27 Temperature 98.3 F 98.6 F Pulse Rate 95 104 Respiratory 24 23 Rate Blood Pressure 150/94 158/101 161/102 (mmHg) O2 Sat by Pulse 99 100 Oximetry Oxygen Devices in Use Now: None Appearance: 56 yo M in nAD, aAOx3 Eyes: No Scleral Icterus, PERRLA Ears/Nose/Mouth/Throat: NL Teeth, Lips, Gums, Mucous Membranes Moist Neck: NL Appearance and Movements; NL JVP, Trachea Midline Respiratory: Symmetrical Chest Expansion and Respiratory Effort, Clear to Auscultation Cardiovascular: NL Sounds; No Murmurs; No JVD, RRR Abdominal: NL Sounds; No Tenderness; No Distention, No Hepatosplenomegaly Lymphatic: No Cervical Adenopathy Extremities: No Edema, No Clubbing, Cyanosis Skin: No Rash or Ulcers, No Nodules or Sclerosis Neurological: Alert and Oriented x 3, NL Muscle Strength and Tone, - - minimal tremor in L hand >R Result Diagrams: 08/03/17 05:51 08/03/17 05:51 Microbiology and Other Data: Microbiology 08/01/17 00:00 Nasal Screen MRSA (PCR)([facility]) - Final Nasal Mrsa Not Detected Assess/Plan/Problems-Billing Assessment: 56 y.o male with history ETOH abuse, Lung CA s/p lobectomy, HTN, Gout, GERD and CKD that presented to the ED with ETOH withdrawal. transferred to ICU overnight for tachypnea transferred out on 08/01/17 - Patient Problems (1) Alcohol withdrawal Comment: not required [facility] Ativan x 12 hrs, but will cont the protocol x 24H more (2) Coffee ground emesis Comment: reported by pt at admission - no vomiting - will continue to monitor - PPI to omeprazole 20 mg po daily - H/ H stable (3) Tachypnea Comment: transferred to ICU overnight for RR in the 40s on 07/31/17 CTA shows no PE, no pulmonary edema. This may have been related to anxiety and withdrawal having found no hypoxia, and with a normal CTA, no leukocytosis. also may have been related to bronchospasm, as he seems to have improved drastically after nebulizers. Resolved (4) CKD (chronic kidney disease) stage 3, GFR 30-59 ml/min Comment: creat slightly increased but still at baseline - will continue to monitor (5) GERD (gastroesophageal reflux disease) Comment: Continue PPI (6) HTN (hypertension) Comment: hypotensive on 08/02/17, now BP high again afetr clonidine patch d/c'd. Will start lopressor and monitor (7) Hypomagnesemia Comment: replaced, cont PO supplementation (8) DVT prophylaxis Comment: SCDs - patient has reported coffee ground emesis prior to admission Status and Disposition: inpatient
[2017-08-04] MEDS: Omeprazole CAP* 20 MG PO SCH (06:09)
[2017-08-04 07:32] LABS: ABS Basophils 0.1 10^3/ul (0-0.2); ABS Eosinophils 0.1 10^3/ul (0-0.6); ABS Lymphocytes 1.2 10^3/ul (1.0-4.8); ABS Monocytes 0.7 10^3/ul (0-0.8); ABS Neutrophils 5.1 10^3/ul (1.5-7.7); ABS Nucleated RBC 0 10^3/ul; Hematocrit 31 % (42-52); Hemoglobin 10.5 g/dl (14.0-18.0); Mean Corpuscular HGB Conc 34 g/dl (31-36); Mean Corpuscular Hemoglobin 34 pg (27-31); Mean Corpuscular Volume 100 fL (80-94); Mean Platelet Volume 7.9 um3 (7.4-10.4); Nucleated Red Blood Cells % 0.1; Platelet Count 530 10^3/ul (150-450); Red Blood Count 3.13 10^6/ul (4.00-5.40); Red Cell Distribution Width 18 % (10.5-15); White Blood Count 7.1 10^3/ul (3.5-10.8)
[2017-08-04] MEDS: Magnesium Oxide TAB* 400 MG PO SCH ×2 (10:10→21:04)
[2017-08-04] MEDS: Multivitamins/Minerals TAB PO SCH (10:10)
[2017-08-04] MEDS: Folic Acid TAB* 1 MG PO SCH (10:10)
[2017-08-04] MEDS: Metoprolol Tartrate TAB* 25 MG PO SCH ×2 (10:11→21:03)
[2017-08-04] MEDS: Thiamine IV* 100 MG in NS 0.9% 50 ML* 50 ML IV SCH (10:11)
[2017-08-04] MEDS: Nystatin TOP POWDER* 15 GM BTL TOPICAL SCH ×2 (10:17→21:06)
[2017-08-04] MEDS: Acetaminophen TAB* 325 MG PO PRN (10:27)
[2017-08-04] MEDS ORDERED: Magnesium Sulfate 2 GM IV* 2 GM/50 ML BAG IVPB ONE (10:39)
--- NOTE | 2017-08-04 10:40 | PN ---
Subjective Date of Service: 08/04/17 Interval History: pt is having diarrhea after laxatives a day and half ago. no abd pain. Has not needed Ativan >24H Family History: Unchanged from Admission Social History: Unchanged from Admission Past Medical History: Unchanged from Admission Objective Active Medications: Acetaminophen (Tylenol Tab*) 650 mg PO Q6H PRN PRN Reason: FEVER/PAIN Last Admin: 08/04/17 10:27 Dose: 650 mg Albuterol (Ventolin 2.5 Mg/3 Ml Neb.Dana*) 2.5 mg INH Q2H PRN PRN Reason: SOB/WHEEZING Albuterol/Ipratropium (Duoneb (Albuterol 2.5 Mg/Ipratropium 0.5 Mg)) 1 neb INH Q4H PRN PRN Reason: SOB/WHEEZING Folic Acid (Folvite Tab*) 1 mg PO DAILY [facility] Last Admin: 08/04/17 10:10 Dose: 1 mg Hydralazine HCl (Apresoline Iv*) 5 mg IV SLOW PU Q6H PRN PRN Reason: BLOOD PRESSURE Last Admin: 07/31/17 00:08 Dose: 5 mg Magnesium Hydroxide (Milk Of Magnesia Liq*) 30 ml PO Q4H PRN PRN Reason: CONSTIPATION Last Admin: 08/02/17 08:25 Dose: 30 ml Magnesium Oxide (Magox 400 Tab*) 800 mg PO BID [facility] Last Admin: 08/04/17 10:10 Dose: 800 mg Metoprolol Tartrate (Lopressor Tab*) 25 mg PO BID [facility] Last Admin: 08/04/17 10:11 Dose: 25 mg Metoprolol Tartrate (Lopressor Tab*) 12.5 mg PO BID [facility] Multivitamins/Minerals (Theragran/Minerals Tab*) 1 tab PO DAILY [facility] Last Admin: 08/04/17 10:10 Dose: 1 tab Nystatin (Nystatin Top Powder*) 1 applic TOPICAL BID [facility] Last Admin: 08/04/17 10:17 Dose: Not Given Omeprazole (Prilosec Cap*) 20 mg PO 0600 [facility] Last Admin: 08/04/17 06:09 Dose: 20 mg Ondansetron HCl (Zofran Odt Tab*) 4 mg SL Q6H PRN PRN Reason: NAUSEA/VOMITING Last Admin: 08/02/17 08:24 Dose: 4 mg Polyethylene Glycol/Electrolytes (Miralax*) 17 gm PO DAILY PRN PRN Reason: CONSTIPATION Last Admin: 08/03/17 08:49 Dose: 17 gm Thiamine HCl (Vitamin B-1 Tab*) 100 mg PO 0900 [facility] Vital Signs - 8 hr 08/04/17 08/04/17 08/04/17 04:06 06:11 07:56 Temperature 98.4 F 98.7 F 98.5 F Pulse Rate 85 84 87 Respiratory 18 16 19 Rate Blood Pressure 152/94 142/83 146/80 (mmHg) O2 Sat by Pulse 98 99 99 Oximetry Oxygen Devices in Use Now: None Appearance: 56 yo M in nAD, aAOx3 Eyes: No Scleral Icterus, PERRLA Ears/Nose/Mouth/Throat: NL Teeth, Lips, Gums, Mucous Membranes Moist Neck: NL Appearance and Movements; NL JVP, Trachea Midline Respiratory: Symmetrical Chest Expansion and Respiratory Effort, Clear to Auscultation Cardiovascular: NL Sounds; No Murmurs; No JVD, RRR Abdominal: NL Sounds; No Tenderness; No Distention Lymphatic: No Cervical Adenopathy Extremities: No Edema, No Clubbing, Cyanosis Skin: No Rash or Ulcers, No Nodules or Sclerosis Neurological: Alert and Oriented x 3, NL Muscle Strength and Tone Result Diagrams: 08/04/17 06:49 08/04/17 06:49 Microbiology and Other Data: Microbiology 08/01/17 00:00 Nasal Screen MRSA (PCR)([facility]) - Final Nasal Mrsa Not Detected Assess/Plan/Problems-Billing Assessment: 56 y.o male with history ETOH abuse, Lung CA s/p lobectomy, HTN, Gout, GERD and CKD that presented to the ED with ETOH withdrawal. transferred to ICU overnight for tachypnea transferred out on 08/01/17 - Patient Problems (1) Alcohol withdrawal Comment: not required WAM Ativan x 24 hrs, will d/c (2) Coffee ground emesis Comment: reported by pt at admission, no recurrence, stool heme - (3) Tachypnea Comment: transferred to ICU overnight for RR in the 40s on 07/31/17 CTA shows no PE, no pulmonary edema. This may have been related to anxiety and withdrawal having found no hypoxia, and with a normal CTA, no leukocytosis. also may have been related to bronchospasm, as he seems to have improved drastically after nebulizers. Resolved (4) CKD (chronic kidney disease) stage 3, GFR 30-59 ml/min Comment: creat at baseline - will continue to monitor (5) GERD (gastroesophageal reflux disease) Comment: Continue PPI (6) HTN (hypertension) Comment: will increase lopressor from 25 mg BID to 37.5 BID (7) Hypomagnesemia Comment: replaced, cont PO supplementation (8) DVT prophylaxis Comment: HSQ Status and Disposition: inpatient
[2017-08-04] MEDS: Heparin VIAL(*) 5000 UNITS/ML VIAL (FIVE THOUSAND) SUBCUT SCH ×2 (13:34→21:05)
[2017-08-05] MEDS: Acetaminophen TAB* 325 MG PO PRN (01:52)
[2017-08-05] MEDS: Omeprazole CAP* 20 MG PO SCH (06:22)
[2017-08-05] MEDS: Heparin VIAL(*) 5000 UNITS/ML VIAL (FIVE THOUSAND) SUBCUT SCH ×2 (06:22→13:29)
[2017-08-05] MEDS: Folic Acid TAB* 1 MG PO SCH (07:59)
[2017-08-05] MEDS: Multivitamins/Minerals TAB PO SCH (07:59)
[2017-08-05] MEDS: Magnesium Oxide TAB* 400 MG PO SCH (07:59)
[2017-08-05] MEDS: Metoprolol Tartrate TAB* 25 MG PO SCH (08:00)
[2017-08-05] MEDS: Nystatin TOP POWDER* 15 GM BTL TOPICAL SCH (08:03)
[2017-08-05] MEDS ORDERED: Thiamine TAB* 100 MG TAB PO SCH (09:00)
[2017-08-05 13:52] VITALS: BP 153/88
--- NOTE | 2017-08-06 09:03 | DS ---
CC: Dr. Duncan.* DISCHARGE SUMMARY: DATE OF ADMISSION: 07/26/17 DATE OF DISCHARGE: 08/05/17 The patient has been discharged to home. PRIMARY CARE PROVIDER: Dr. Duncan. DISCHARGE DIAGNOSES: 1. Alcohol withdrawal with acute delirium tremens necessitating stay in the intensive care unit, would result in acute hypoxemic respiratory failure that resolved. 2. Hypomagnesemia secondary to above. 3. Reported coffee-ground emesis with negative guaiac stool and hemoglobin that had been stable. 4. Macrocytic anemia due to alcoholism. 5. Acute kidney injury secondary to delirium tremens that resolved. 6. Hypertension. MEDICATIONS AT DISCHARGE: Include: 1. Folic acid 1 mg daily. 2. Mag-Ox 400 mg daily. 3. Metoprolol tartrate 50 mg b.i.d. 4. Omeprazole 20 mg daily. 5. Thiamine 100 mg daily. LABORATORY DATA AND STUDIES PERFORMED DURING HOSPITAL STAY: Included: On 08/04, sodium of 136, potassium 3.7, chloride 100, carbon dioxide 28, BUN 25, creatinine 1.11, magnesium 1.7. White blood cell count 7.1, hemoglobin 10.5, hematocrit 31, MCV 100, platelets of 530. Stool occult blood noted on 08/03/17 was negative. HOSPITALIZATION COURSE: Zbigniew Rojas is a 56-year-old male with history of alcoholism, who presented to the hospital on 07/26/17, complaining of nausea and vomiting for 4 days. He was noted to be in alcohol withdrawal. He was admitted to the hospital, treated with withdrawal protocol with Ativan. There has been continuation of treatment with Ativan. On 07/31/17, patient developed worsening of his withdrawal with deterioration and worsening of his confusion as well as hypoxemia. At this point, a CT angiogram of the chest was obtained which showed no PE and fatty infiltration of the liver as well as cholelithiasis. The patient's hypoxemia resolved after his ICU stay, but he continues to be very deconditioned after his transfer from the ICU. He was evaluated by Physical Therapy and Occupational Therapy and deemed to be safe to be ambulating with a walker at home. Throughout his hospital stay he was noted to have hypomagnesemia which was being repleted. He suffered from acute kidney injury that likely was a combination of delirium tremens and may be mild dehydration. That also could be related to contrast-related nephropathy. Nevertheless, it resolved by the time of discharge. The patient was also hypertensive throughout his hospital stay and was treated with metoprolol with good results. PHYSICAL EXAMINATION AT THE TIME OF DISCHARGE: Blood pressure of 147/84, heart rate of 80 and regular, respiratory rate 20, oxygen saturation 100% on room air , temperature 98.2. General: The patient is a pleasant 56-year-old male who is in no acute distress. Alert, awake and oriented x3. HEENT: Head: Atraumatic, normocephalic. Eyes: Pupils are equal and reactive to light and accommodation. Oropharynx clear. Mucosa moist. Neck: Supple. No JVD. No bruit bilaterally. Cardiovascular: Regular rate and rhythm. No murmur. Respiratory: Clear to auscultation bilaterally. Abdomen: Soft, nontender. Bowel sounds are present in all 4 quadrants. Extremities: There is no edema. Pulses +2 bilaterally. No clubbing or cyanosis. On neuro evaluation, speech clear. Cranial nerves II through XII grossly intact. 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 Psychiatric Evaluation: Oriented x3, but no evidence of anxiety or depression. The patient is recommended to followup with his primary care provider, Dr. Duncan, in approximately 4 to 7 days. The patient was also set up and referred to [facility] for healthy living for follow up with Nutrition and Physical Therapy. Please note that this is a short summary of the patient's prolonged and complicated hospitalization. Please refer to further medical records for details. TIME SPENT: Approximately 50 minutes were spent in patient's discharge. [id number]/[facility] #: [id number] [facility]ITALSheron
== END 2017-08-05 15:00 | disposition home health service (06) | DRG 775 ==
LOC: ED 14:13 → MED 15:53 → ICU 07-31 22:27 → MED 08-01 11:48
PROVIDERS: ADMIT Internal Medicine; ATTEND Internal Medicine
DX: F10.231 Alcohol dependence with withdrawal delirium (principal); J96.01 Acute respiratory failure with hypoxia; N17.9 Acute kidney failure, unspecified; I12.0 Hypertensive chronic kidney disease with stage 5 chronic kidney disease or end stage renal disease; E86.0 Dehydration; K21.9 Gastro-esophageal reflux disease without esophagitis; M10.9 Gout, unspecified; N18.3 Chronic kidney disease, stage 3 (moderate); E66.9 Obesity, unspecified; R74.0 Nonspecific elevation of levels of transaminase and lactic acid dehydrogenase [LDH]; E83.42 Hypomagnesemia; R11.10 Vomiting, unspecified; D53.9 Nutritional anemia, unspecified; Y90.1 Blood alcohol level of 20-39 mg/100 ml; R19.7 Diarrhea, unspecified; Z83.3 Family history of diabetes mellitus; Z80.0 Family history of malignant neoplasm of digestive organs; Z80.3 Family history of malignant neoplasm of breast; Z72.89 Other problems related to lifestyle; Z88.0 Allergy status to penicillin; Z85.118 Personal history of other malignant neoplasm of bronchus and lung; Z90.2 Acquired absence of lung [part of]; Z87.891 Personal history of nicotine dependence; Z82.49 Family history of ischemic heart disease and other diseases of the circulatory system; Z80.8 Family history of malignant neoplasm of other organs or systems; Z68.31 Body mass index [BMI] 31.0-31.9, adult; Z92.21 Personal history of antineoplastic chemotherapy
CPT/HCPCS: 36415; 70450; 71045; 71275; 80048; 80053; 80307; 80320; 80329; 81003; 81015; 82140; 82272; 82803; 83605; 83735; 84443; 85025; 85027; 87040; 87641; 93005; 94640; 99283; A9270-GY; G0480; G8978-GP-CM; G8979-GP-CM; J0360; J1644; J1940; J2060; J2765; J3411; J3475; Q9967